=== PATIENT | male | born 1945 | race Caucasian/White ===

== ENCOUNTER → 2018-06-16 | Outpatient (CLI) | payer OTHER ==
[2018-06-16 14:29] LABS: Basophils # (auto) 0.1 uL; Basophils % (auto) 0.6 % (0.0-2.0); Eosinophils # (auto) 0.1 uL; Eosinophils % (auto) 1.1 % (0.0-7.0); Hemoglobin 14.8 g/dL (13.5-17.5); Lymphocytes # (auto) 1.6 uL; Lymphocytes % (auto) 18.1 % (10.0-50.0); Mean Corpuscular Hemoglobin 29.4 pg (28.0-32.0); Mean Corpuscular Hgb Conc. 33.7 g/dL (32.0-36.0); Mean Corpuscular Volume 87.2 fL (80.0-100.0); Monocytes # (auto) 0.5 uL; Monocytes % (auto) 5.9 % (0.0-12.0); Neutrophils # (auto) 6.6 uL; Neutrophils % (auto) 74.3 % (37.0-80.0); Platelet Count (auto) 263 10^3/uL (140-450); Red Blood Cells 5.04 10^6/uL (4.5-5.90)
[2018-06-16 14:34] LABS: Urine Bacteria NONE SEEN /hpf (None Seen); Urine Blood 1+ /uL (Negative); Urine Specific Gravity 1.015 (1.001-1.035); Urine WBC 80 /hpf (0 - 3)
[2018-06-16 14:48] LABS: Albumin 3.7 g/dL (3.4-5.0); Calcium 9.1 mg/dL (8.5-10.1); Potassium 4.4 mmol/L (3.5-5.1)
[2018-06-16 14:52] LABS: Bilirubin, Total 0.3 mg/dL (0.2-1.0)
[2018-06-16 14:56] LABS: Folate (Folic Acid) 10.85 ng/mL (5.38-24)
== END | disposition home or self-care (01) ==
LOC: LAB 14:01
PROVIDERS: ATTEND Nurse Practitioner
DX: E78.5 Hyperlipidemia, unspecified (principal)
CPT/HCPCS: 36415; 80053; 80061; 81001; 82043; 82306; 82607; 82746; 83036; 84443; 85025

== ENCOUNTER → 2018-08-13 | Outpatient (CLI) | payer OTHER ==
[2018-08-13 10:33] LABS: Basophils # (auto) 0 uL; Basophils % (auto) 0.5 % (0.0-2.0); Eosinophils # (auto) 0.1 uL; Eosinophils % (auto) 1.3 % (0.0-7.0); Hematocrit 42.8 % (41.0-53.0); Hemoglobin 14.3 g/dL (13.5-17.5); Lymphocytes # (auto) 1.7 uL; Lymphocytes % (auto) 23.9 % (10.0-50.0); Mean Corpuscular Hgb Conc. 33.4 g/dL (32.0-36.0); Mean Corpuscular Volume 86.9 fL (80.0-100.0); Monocytes # (auto) 0.5 uL; Monocytes % (auto) 6.9 % (0.0-12.0); Neutrophils # (auto) 4.7 uL; Neutrophils % (auto) 67.4 % (37.0-80.0); Platelet Count (auto) 245 10^3/uL (140-450); Red Blood Cells 4.93 10^6/uL (4.5-5.90); Red Cell Distribution Width 13.9 % (11.8-14.3); White Blood Cell 6.9 10^3/uL (4.4-10.8)
[2018-08-13 10:37] LABS: Urine Bacteria NONE SEEN /hpf (None Seen); Urine Blood 1+ /uL (Negative); Urine Specific Gravity 1.015 (1.001-1.035); Urine WBC 1 /hpf (0 - 3)
[2018-08-13 10:55] LABS: Albumin 3.7 g/dL (3.4-5.0); Calcium 8.7 mg/dL (8.5-10.1); Potassium 4.4 mmol/L (3.5-5.1)
[2018-08-13 10:59] LABS: BUN/Creatinine Ratio 15.2; Bilirubin, Total 0.4 mg/dL (0.2-1.0); Total Protein 7.6 g/dL (6.4-8.2)
== END | disposition home or self-care (01) ==
LOC: LAB 10:09
PROVIDERS: ATTEND Nurse Practitioner
DX: E78.5 Hyperlipidemia, unspecified (principal)
CPT/HCPCS: 36415; 80053; 81001; 85025

== ENCOUNTER → 2018-10-07 | Outpatient (CLI) | payer OTHER ==
[2018-10-07 09:01] LABS: Urine Bacteria NONE SEEN /hpf (None Seen); Urine Blood 1+ /uL (Negative); Urine Specific Gravity 1.014 (1.001-1.035); Urine WBC 2 /hpf (0 - 3)
[2018-10-07 09:03] LABS: Basophils # (auto) 0.1 uL; Basophils % (auto) 0.9 % (0.0-2.0); Eosinophils # (auto) 0.1 uL; Eosinophils % (auto) 1.5 % (0.0-7.0); Hematocrit 41.5 % (41.0-53.0); Hemoglobin 14.4 g/dL (13.5-17.5); Lymphocytes # (auto) 1.4 uL; Lymphocytes % (auto) 17.3 % (10.0-50.0); Mean Corpuscular Hemoglobin 30.2 pg (28.0-32.0); Mean Corpuscular Hgb Conc. 34.6 g/dL (32.0-36.0); Mean Corpuscular Volume 87.2 fL (80.0-100.0); Monocytes # (auto) 0.5 uL; Neutrophils # (auto) 5.7 uL; Neutrophils % (auto) 73.3 % (37.0-80.0); Nucleated Red Blood Cells % 0.1 %; Platelet Count (auto) 247 10^3/uL (140-450); Red Blood Cells 4.76 10^6/uL (4.5-5.90); Red Cell Distribution Width 14.4 % (11.8-14.3); White Blood Cell 7.8 10^3/uL (4.4-10.8)
[2018-10-07 09:28] LABS: Albumin 3.6 g/dL (3.4-5.0); Calcium 8.7 mg/dL (8.5-10.1); Potassium 4.8 mmol/L (3.5-5.1)
[2018-10-07 09:33] LABS: BUN/Creatinine Ratio 15.8; Bilirubin, Total 0.4 mg/dL (0.2-1.0); Total Protein 7.4 g/dL (6.4-8.2)
== END | disposition home or self-care (01) ==
LOC: LAB 08:36
PROVIDERS: ATTEND Nurse Practitioner
DX: N18.4 Chronic kidney disease, stage 4 (severe) (principal)
CPT/HCPCS: 36415; 80053; 81001; 82043; 83036; 85025

== ENCOUNTER → 2018-11-11 | Outpatient (CLI) | payer OTHER, MEDICARE ==
[2018-11-11 09:59] LABS: Basophils # (auto) 0 uL; Basophils % (auto) 0.6 % (0.0-2.0); Eosinophils # (auto) 0.1 uL; Eosinophils % (auto) 1.1 % (0.0-7.0); Hematocrit 41.9 % (41.0-53.0); Hemoglobin 14.3 g/dL (13.5-17.5); Lymphocytes # (auto) 1.4 uL; Lymphocytes % (auto) 19.9 % (10.0-50.0); Mean Corpuscular Hemoglobin 29.5 pg (28.0-32.0); Mean Corpuscular Hgb Conc. 34.1 g/dL (32.0-36.0); Mean Corpuscular Volume 86.6 fL (80.0-100.0); Monocytes # (auto) 0.5 uL; Monocytes % (auto) 6.6 % (0.0-12.0); Neutrophils # (auto) 5.1 uL; Neutrophils % (auto) 71.8 % (37.0-80.0); Nucleated Red Blood Cells % 0.1 %; Platelet Count (auto) 289 10^3/uL (140-450); Red Blood Cells 4.84 10^6/uL (4.5-5.90); Red Cell Distribution Width 14.1 % (11.8-14.3); White Blood Cell 7.1 10^3/uL (4.4-10.8)
[2018-11-11 10:15] LABS: Urine Bacteria NONE SEEN /hpf (None Seen); Urine Blood TRACE /uL (Negative); Urine Specific Gravity 1.011 (1.001-1.035); Urine WBC 3 /hpf (0 - 3)
[2018-11-11 10:35] LABS: Albumin 3.7 g/dL (3.4-5.0); Potassium 4.4 mmol/L (3.5-5.1)
[2018-11-11 10:41] LABS: BUN/Creatinine Ratio 14.4; Bilirubin, Total 0.3 mg/dL (0.2-1.0); Total Protein 7.8 g/dL (6.4-8.2)
[2018-11-11 12:04] LABS: Folate (Folic Acid) 16.96 ng/mL (5.38-24); Prostate Specific Antigen 0.6 ng/mL (0.0-4.0)
== END | disposition home or self-care (01) ==
LOC: LAB 09:39
PROVIDERS: ATTEND Nurse Practitioner
DX: E78.5 Hyperlipidemia, unspecified (principal); E11.9 Type 2 diabetes mellitus without complications
CPT/HCPCS: 36415; 80053; 80061; 81001; 82043; 82306; 82746; 83036; 84153; 84443; 85025

== ENCOUNTER → 2018-11-24 | Outpatient (CLI) | payer OTHER, MEDICARE | END | disposition home or self-care (01) | LOC: LAB 09:10 | PROVIDERS: ATTEND Nurse Practitioner | DX: E11.22 Type 2 diabetes mellitus with diabetic chronic kidney disease (principal); N18.4 Chronic kidney disease, stage 4 (severe); E78.5 Hyperlipidemia, unspecified | CPT/HCPCS: 82270 ==

== ENCOUNTER → 2018-12-16 | Outpatient (CLI) | payer OTHER, MEDICARE ==
[2018-12-16 15:46] LABS: Urine Bacteria NONE SEEN /hpf (None Seen); Urine Blood Negative /uL (Negative); Urine Specific Gravity 1.018 (1.001-1.035); Urine WBC 8 /hpf (0 - 3)
== END | disposition home or self-care (01) ==
LOC: LAB 14:55
PROVIDERS: ATTEND Urology
DX: N40.0 Benign prostatic hyperplasia without lower urinary tract symptoms (principal)
CPT/HCPCS: 81001; 87086

== ENCOUNTER → 2019-06-13 | Outpatient (CLI) | payer MEDICARE, OTHER ==
[2019-06-13 08:55] LABS: Basophils # (auto) 0 uL; Basophils % (auto) 0.4 % (0.0-2.0); Eosinophils # (auto) 0.1 uL; Eosinophils % (auto) 1.3 % (0.0-7.0); Hematocrit 40.4 % (41.0-53.0); Lymphocytes # (auto) 1.6 uL; Lymphocytes % (auto) 17.7 % (10.0-50.0); Mean Corpuscular Hemoglobin 30.3 pg (28.0-32.0); Mean Corpuscular Hgb Conc. 34.5 g/dL (32.0-36.0); Mean Corpuscular Volume 87.7 fL (80.0-100.0); Monocytes # (auto) 0.6 uL; Neutrophils # (auto) 6.6 uL; Neutrophils % (auto) 73.6 % (37.0-80.0); Nucleated Red Blood Cells % 0.1 %; Platelet Count (auto) 242 10^3/uL (140-450); Red Blood Cells 4.61 10^6/uL (4.5-5.90)
[2019-06-13 08:59] LABS: Urine Bacteria NONE SEEN /hpf (None Seen); Urine Blood TRACE /uL (Negative); Urine Hyaline Cast FEW /lpf (0 - 2); Urine Specific Gravity 1.016 (1.001-1.035); Urine WBC 3 /hpf (0 - 3)
[2019-06-13 09:41] LABS: Albumin 3.8 g/dL (3.4-5.0); BUN/Creatinine Ratio 16.1; Bilirubin, Total 0.4 mg/dL (0.2-1.0); Calcium 8.9 mg/dL (8.5-10.1); Potassium 4.3 mmol/L (3.5-5.1); Total Protein 7.7 g/dL (6.4-8.2)
== END | disposition home or self-care (01) ==
LOC: LAB 08:27
PROVIDERS: ATTEND Nurse Practitioner
DX: E78.5 Hyperlipidemia, unspecified (principal); E11.9 Type 2 diabetes mellitus without complications
CPT/HCPCS: 36415; 80053; 80061; 81001; 82043; 83036; 84443; 85025

== ENCOUNTER → 2019-09-22 | Outpatient (CLI) | payer OTHER ==
[2019-09-22 09:09] LABS: Basophils # (auto) 0 uL; Basophils % (auto) 0.4 % (0.0-2.0); Eosinophils # (auto) 0.1 uL; Eosinophils % (auto) 1.8 % (0.0-7.0); Hematocrit 40.3 % (41.0-53.0); Hemoglobin 13.9 g/dL (13.5-17.5); Lymphocytes # (auto) 1.6 uL; Lymphocytes % (auto) 20.3 % (10.0-50.0); Mean Corpuscular Hemoglobin 30.1 pg (28.0-32.0); Mean Corpuscular Hgb Conc. 34.5 g/dL (32.0-36.0); Mean Corpuscular Volume 87.3 fL (80.0-100.0); Monocytes # (auto) 0.6 uL; Monocytes % (auto) 7.9 % (0.0-12.0); Neutrophils # (auto) 5.3 uL; Neutrophils % (auto) 69.6 % (37.0-80.0); Platelet Count (auto) 264 10^3/uL (140-450); Red Blood Cells 4.62 10^6/uL (4.5-5.90); Red Cell Distribution Width 14.1 % (11.8-14.3); White Blood Cell 7.7 10^3/uL (4.4-10.8)
[2019-09-22 09:24] LABS: Urine Bacteria NONE SEEN /hpf (None Seen); Urine Blood TRACE /uL (Negative); Urine Mucus FEW (None Seen); Urine Specific Gravity 1.015 (1.001-1.035); Urine WBC 1 /hpf (0 - 3)
[2019-09-22 09:43] LABS: Potassium 4.1 mmol/L (3.5-5.1)
[2019-09-22 09:53] LABS: Albumin 3.8 g/dL (3.4-5.0); BUN/Creatinine Ratio 14.8; Bilirubin, Total 0.4 mg/dL (0.2-1.0); Total Protein 7.8 g/dL (6.4-8.2)
== END | disposition home or self-care (01) ==
LOC: LAB 08:29
PROVIDERS: ATTEND Nurse Practitioner
DX: R97.20 Elevated prostate specific antigen [PSA] (principal)
CPT/HCPCS: 36415; 80053; 80061; 81001; 82043; 83036; 84154; 84443; 85025

== ENCOUNTER → 2020-07-12 | Outpatient (CLI) | payer OTHER ==
[2020-07-12 09:18] LABS: Basophils # (auto) 0.1 10 ^3/uL (0-0.2); Basophils % (auto) 0.5 % (0.0-2.0); Eosinophils # (auto) 0.3 10 ^3/uL (0-0.8); Eosinophils % (auto) 2.5 % (0.0-7.0); Hematocrit 38.9 % (41.0-53.0); Lymphocytes # (auto) 1.9 10 ^3/uL (0.4-5.4); Lymphocytes % (auto) 18.7 % (10.0-50.0); Mean Corpuscular Hgb Conc. 33.4 g/dL (32.0-36.0); Mean Corpuscular Volume 89.7 fL (80.0-100.0); Monocytes # (auto) 0.6 10 ^3/uL (0-1.3); Monocytes % (auto) 6.2 % (0.0-12.0); Neutrophils # (auto) 7.5 10 ^3/uL (1.6-8.6); Neutrophils % (auto) 72.1 % (37.0-80.0); Platelet Count (auto) 271 10^3/uL (140-450); Red Blood Cells 4.34 10^6/uL (4.5-5.90); Red Cell Distribution Width 13.8 % (11.8-14.3); White Blood Cell 10.4 10^3/uL (4.4-10.8)
[2020-07-12 09:21] LABS: Urine Bacteria FEW /hpf (None Seen); Urine Blood Negative /uL (Negative); Urine Specific Gravity 1.013 (1.001-1.035); Urine WBC 3 /hpf (0 - 3)
[2020-07-12 09:45] LABS: Albumin 3.9 g/dL (3.4-5.0); Calcium 9.5 mg/dL (8.5-10.1); Potassium 4.3 mmol/L (3.5-5.1)
[2020-07-12 09:50] LABS: BUN/Creatinine Ratio 20.3; Bilirubin, Total 0.3 mg/dL (0.2-1.0); Total Protein 7.7 g/dL (6.4-8.2)
== END | disposition home or self-care (01) ==
LOC: LAB 09:01
PROVIDERS: ATTEND Nurse Practitioner
DX: E11.9 Type 2 diabetes mellitus without complications (principal); E78.5 Hyperlipidemia, unspecified
CPT/HCPCS: 36415; 80053; 80061; 81001; 82043; 82270; 83036; 84443; 85025

== ENCOUNTER 2020-07-23 10:18 | Inpatient (IN) | payer OTHER ==
[~2020-07-23] VITALS: Ht 177.8 cm; Wt 89.1 kg
[2020-07-23 11:28] LABS: Basophils # (auto) 0 10 ^3/uL (0-0.2); Basophils % (auto) 0.1 % (0.0-2.0); Eosinophils # (auto) 0.1 10 ^3/uL (0-0.8); Eosinophils % (auto) 0.8 % (0.0-7.0); Hematocrit 37.8 % (41.0-53.0); Hemoglobin 12.9 g/dL (13.5-17.5); Lymphocytes # (auto) 1.7 10 ^3/uL (0.4-5.4); Lymphocytes % (auto) 14.9 % (10.0-50.0); Mean Corpuscular Hemoglobin 30.1 pg (28.0-32.0); Mean Corpuscular Volume 88.4 fL (80.0-100.0); Monocytes # (auto) 0.7 10 ^3/uL (0-1.3); Monocytes % (auto) 6.1 % (0.0-12.0); Neutrophils # (auto) 8.9 10 ^3/uL (1.6-8.6); Neutrophils % (auto) 78.1 % (37.0-80.0); Nucleated Red Blood Cells % 0.1 %; Platelet Count (auto) 300 10^3/uL (140-450); Red Blood Cells 4.28 10^6/uL (4.5-5.90); Red Cell Distribution Width 13.8 % (11.8-14.3); White Blood Cell 11.4 10^3/uL (4.4-10.8)
[2020-07-23 12:12] LABS: Albumin 3.9 g/dL (3.4-5.0); Anion Gap 11 (5-15); Calcium 9.2 mg/dL (8.5-10.1); Carbon Dioxide 19 mmol/L (21-32); Chloride 105 mmol/L (98-107); Glucose 198 mg/dL (74-106); Magnesium 3.1 mg/dL (1.6-2.6); Potassium 4.1 mmol/L (3.5-5.1); Sodium 135 mmol/L (136-145)
[2020-07-23 12:19] LABS: Alanine Aminotransferase 25 U/L (16-61); Alkaline Phosphatase 101 U/L (45-117); Aspartate Aminotransferase 13 U/L (15-37); BUN/Creatinine Ratio 21.9; Bilirubin, Total 0.4 mg/dL (0.2-1.0); GFR African American 19 mL/min; GFR Non-African American 15 mL/min
[2020-07-23 12:26] LABS: Blood Urea Nitrogen 89 mg/dL (7-18)
[2020-07-23] MEDS ORDERED: MORPHINE SULF INJ 2 MG/ML SYRINGE 1ML IV PRN ×3 (14:00→16:30)
[2020-07-23] MEDS ORDERED: LACTATED RINGER'S 1,000 ML IV ONE (14:00)
[2020-07-23] MEDS ORDERED: NITROGLYCERIN 0.4 MG SL TAB SL PRN ×2 (14:00→16:30)
[2020-07-23] MEDS ORDERED: GLIP10TA9 PO (15:02)
[2020-07-23] MEDS ORDERED: AMLO10TA13 PO (15:02)
[2020-07-23] MEDS ORDERED: FINA5TAB4 PO (15:02)
[2020-07-23] MEDS ORDERED: ATOR10TA52 PO (15:02)
[2020-07-23] MEDS ORDERED: TAMS0.4C36 PO (15:02)
[2020-07-23] MEDS ORDERED: ENOXAPARIN SOD 40 MG/0.4 ML SYRINGE SC ONE (15:30)
[2020-07-23 15:55] LABS: Cholesterol 102 mg/dL (< 200)
[2020-07-23 15:59] LABS: HDL Cholesterol 30 mg/dL (40-59); LDL Cholesterol 54 mg/dL (< 100); Triglycerides 197 mg/dL (< 150)
[2020-07-23] MEDS ORDERED: ENOXAPARIN SOD 30 MG/0.3 ML SYRINGE SC ONE (16:00)
[2020-07-23] MEDS ORDERED: PNEUMOCOCCAL VACC POLYS 25 MCG/0.5 ML VIAL IM ONE (16:30)
[2020-07-23] MEDS ORDERED: DOCUSATE SOD 100 MG CAP PO PRN (16:30)
[2020-07-23] MEDS ORDERED: ALUM & MAG HYDROX-SIMETH LIQ(MAALOX) 30 ML PO PRN (16:30)
[2020-07-23] MEDS ORDERED: TAMSULOSIN HYDROCHLORIDE 0.4 MG CAP PO ONE (16:30)
[2020-07-23] MEDS ORDERED: ACETAMINOPHEN 325 MG TAB PO PRN (16:30)
[2020-07-23] MEDS ORDERED: hydrALAZINE HCL 20 MG/ML VL IV PRN (16:30)
[2020-07-23] MEDS ORDERED: DEXTROSE (50%) 50ML SYRG IV PRN (16:30)
[2020-07-23] MEDS ORDERED: INFLUENZA QUAD 2020-2021 0.5 ML SYRG IM ONE (16:30)
[2020-07-23] MEDS ORDERED: HYDROcodone-ACET 5/325MG TAB PO PRN (16:30)
[2020-07-23] MEDS ORDERED: LORazepam 0.5 MG TAB PO PRN (16:30)
[2020-07-23] MEDS ORDERED: cefTRIAXone 1GM/50ML D5W 50 ML IV ONE (16:30)
[2020-07-23] MEDS ORDERED: ONDANSETRON HCL 4 MG/2 ML VIAL IV PRN (16:30)
[2020-07-23] MEDS ORDERED: ENOXAPARIN SOD 40 MG/0.4 ML SYRINGE SC SCH (22:00)
[2020-07-23] MEDS ORDERED: LATANOPROST 0.005 % OPTH(EYE) SOL 2.5ML EACHEYE SCH (22:00)
[2020-07-24 02:53] LABS: Cholesterol 111 mg/dL (< 200)
[2020-07-24 02:58] LABS: HDL Cholesterol 32 mg/dL (40-59); LDL Cholesterol 59 mg/dL (< 100); Triglycerides 197 mg/dL (< 150)
[2020-07-24] MEDS: SODIUM CHLORIDE 0.9% 1,000 ML IV SCH ×3 (05:20→17:04)
[2020-07-24] MEDS: InsuLIN REG 1unit/0.01ml Soln (100units/ml) SC SCH ×5 (05:22→22:46)
[2020-07-24] MEDS: ACCU-CHEK COMFORT CURVE STRIP VI SCH ×5 (05:23→22:43)
[2020-07-24 10:17] VITALS: BP 153/81
[2020-07-24] MEDS: ASPirin 81 mg TAB PO SCH (10:19)
[2020-07-24] MEDS: cefTRIAXone 1GM/50ML D5W 50 ML IV SCH (10:19)
[2020-07-24] MEDS: FINASTERIDE 5 MG TAB PO SCH (10:19)
[2020-07-24] MEDS: ENOXAPARIN SOD 30 MG/0.3 ML SYRINGE SC SCH (10:20)
[2020-07-24 10:32] VITALS: BP 153/81
[2020-07-24 13:00] VITALS: BP 175/90
[2020-07-24 17:00] VITALS: BP 149/74
[2020-07-24] MEDS ORDERED: TAMSULOSIN HYDROCHLORIDE 0.4 MG CAP PO SCH (18:00)
[2020-07-24 20:05] LABS: Urine Bacteria FEW /hpf (None Seen); Urine Blood TRACE /uL (Negative); Urine Specific Gravity 1.012 (1.001-1.035); Urine WBC 1 /hpf (0 - 3)
[2020-07-24 20:25] LABS: Alcohol, Urine < 3.0 mg/dL (0-10); Amphetamine Screen, Urine NEGATIVE (NEGATIVE); Barbiturate Scree,Urine NEGATIVE (NEGATIVE); Benzodiazephine Screen, Urine NEGATIVE (NEGATIVE); Cannabinoid Screen, Urine NEGATIVE (NEGATIVE); Cocaine Screen, Urine NEGATIVE (NEGATIVE); Opiate Scree,Urine NEGATIVE (NEGATIVE); Phencyclidine Screen, Urine NEGATIVE (NEGATIVE)
[2020-07-24] MEDS ORDERED: ATORVASTATIN 20 MG TAB PO SCH (22:00)
[2020-07-24 22:30] VITALS: BP_SYST 139; BP_SYST 146; BP_SYST 155; BP_DIAS 67; BP_DIAS 74; BP_DIAS 76
[2020-07-24] MEDS: METOPROLOL TARTRATE 25 MG TAB PO SCH (22:43)
[2020-07-25] MEDS: SODIUM CHLORIDE 0.9% 1,000 ML IV SCH (00:35)
[2020-07-25 05:00] VITALS: BP_SYST 123; BP_SYST 130; BP_SYST 142; BP_DIAS 67; BP_DIAS 69
[2020-07-25] MEDS: ACCU-CHEK COMFORT CURVE STRIP VI SCH ×3 (06:37→17:00)
[2020-07-25] MEDS: InsuLIN REG 1unit/0.01ml Soln (100units/ml) SC SCH ×3 (06:37→17:00)
[2020-07-25 07:07] LABS: BUN/Creatinine Ratio 21.5; Calcium 8.5 mg/dL (8.5-10.1); Magnesium 3.1 mg/dL (1.6-2.6); Phosphorus 4.7 mg/dL (2.5-4.90); Potassium 3.7 mmol/L (3.5-5.1)
[2020-07-25 09:00] VITALS: BP 148/72
[2020-07-25] MEDS: cefTRIAXone 1GM/50ML D5W 50 ML IV SCH (09:00)
[2020-07-25] MEDS: ASPirin 81 mg TAB PO SCH (09:53)
[2020-07-25] MEDS: METOPROLOL TARTRATE 25 MG TAB PO SCH (09:54)
[2020-07-25] MEDS: FINASTERIDE 5 MG TAB PO SCH (09:55)
[2020-07-25] MEDS: ENOXAPARIN SOD 30 MG/0.3 ML SYRINGE SC SCH (10:00)
[2020-07-25] MEDS ORDERED: amLODIPine BESYLATE 5 MG TAB PO SCH (10:00)
[2020-07-25 12:30] VITALS: BP 135/75
[2020-07-25] MEDS ORDERED: SODIUM BICARBONATE 650 MG TAB PO SCH (14:00)
[2020-07-25 17:00] VITALS: BP 132/68
== END 2020-07-25 17:33 | disposition home or self-care (01) | DRG 309 ==
LOC: ER 10:18 → TELE 10:19 → TELE-WESTW 07-24 09:50
PROVIDERS: ADMIT Hospitalist; ATTEND Internal Medicine
DX: I49.9 Cardiac arrhythmia, unspecified (principal); E87.1 Hypo-osmolality and hyponatremia; N39.0 Urinary tract infection, site not specified; N18.4 Chronic kidney disease, stage 4 (severe); N13.8 Other obstructive and reflux uropathy; N17.9 Acute kidney failure, unspecified; E44.1 Mild protein-calorie malnutrition; E87.2 Acidosis; E86.0 Dehydration; E83.42 Hypomagnesemia; E78.5 Hyperlipidemia, unspecified; E11.42 Type 2 diabetes mellitus with diabetic polyneuropathy; H40.9 Unspecified glaucoma; N40.1 Benign prostatic hyperplasia with lower urinary tract symptoms; I70.0 Atherosclerosis of aorta; F17.290 Nicotine dependence, other tobacco product, uncomplicated; I25.2 Old myocardial infarction; I65.23 Occlusion and stenosis of bilateral carotid arteries; I67.2 Cerebral atherosclerosis; I70.8 Atherosclerosis of other arteries; K44.9 Diaphragmatic hernia without obstruction or gangrene; K57.30 Diverticulosis of large intestine without perforation or abscess without bleeding; M19.90 Unspecified osteoarthritis, unspecified site; N28.1 Cyst of kidney, acquired; N32.0 Bladder-neck obstruction; Z79.82 Long term (current) use of aspirin; Z79.84 Long term (current) use of oral hypoglycemic drugs; Z79.899 Other long term (current) drug therapy; Z82.0 Family history of epilepsy and other diseases of the nervous system; Z86.73 Personal history of transient ischemic attack (TIA), and cerebral infarction without residual deficits; Z89.429 Acquired absence of other toe(s), unspecified side; I12.9 Hypertensive chronic kidney disease with stage 1 through stage 4 chronic kidney disease, or unspecified chronic kidney disease; E11.22 Type 2 diabetes mellitus with diabetic chronic kidney disease
CPT/HCPCS: 36415; 70450; 70545; 70551; 71046; 74176; 76775; 78582; 80048; 80053; 80061; 80307; 81001; 82962; 83735; 83880; 84100; 84484; 85025; 85379; 87040; 87086; 93005; 93306; 93886; G0378; J0696; J1815

== ENCOUNTER 2020-08-29 17:11 | Inpatient (IN) | payer OTHER ==
[~2020-08-29] VITALS: Ht 177.8 cm; Wt 88.8 kg
[~2020-08-29 17:11] MED LIST: AMLO10TA13 PO; ATOR10TA52 PO; FINA5TAB4 PO; GLIP10TA9 PO; TAMS0.4C36 PO
[2020-08-29] MEDS ORDERED: INSU70IN3 SC (18:32)
[2020-08-29] MEDS ORDERED: NITROGLYCERIN 0.4 MG SL TAB SL PRN ×2 (19:00→20:00)
[2020-08-29] MEDS ORDERED: ACETAMINOPHEN 325 MG TAB PO PRN ×2 (19:00→20:00)
[2020-08-29] MEDS ORDERED: MORPHINE SULF INJ 2 MG/ML SYRINGE 1ML IV PRN ×3 (19:00→20:00)
[2020-08-29] MEDS ORDERED: DEXTROSE (50%) 50ML SYRG IV PRN (19:15)
[2020-08-29 19:30] LABS: Basophils # (auto) 0 10 ^3/uL (0-0.2); Basophils % (auto) 0.2 % (0.0-2.0); Eosinophils # (auto) 0.1 10 ^3/uL (0-0.8); Eosinophils % (auto) 0.6 % (0.0-7.0); Hematocrit 36.7 % (41.0-53.0); Hemoglobin 12.7 g/dL (13.5-17.5); Lymphocytes # (auto) 0.9 10 ^3/uL (0.4-5.4); Lymphocytes % (auto) 8.6 % (10.0-50.0); Mean Corpuscular Hemoglobin 30.6 pg (28.0-32.0); Mean Corpuscular Hgb Conc. 34.5 g/dL (32.0-36.0); Mean Corpuscular Volume 88.8 fL (80.0-100.0); Monocytes # (auto) 0.7 10 ^3/uL (0-1.3); Monocytes % (auto) 6.5 % (0.0-12.0); Neutrophils % (auto) 84.1 % (37.0-80.0); Platelet Count (auto) 217 10^3/uL (140-450); Red Blood Cells 4.13 10^6/uL (4.5-5.90); Red Cell Distribution Width 13.7 % (11.8-14.3); White Blood Cell 10.7 10^3/uL (4.4-10.8)
[2020-08-29 19:32] LABS: Albumin 3.8 g/dL (3.4-5.0); Calcium 9.7 mg/dL (8.5-10.1); Potassium 4.3 mmol/L (3.5-5.1)
[2020-08-29 19:35] LABS: Bilirubin, Total 0.3 mg/dL (0.2-1.0); Total Protein 7.7 g/dL (6.4-8.2)
[2020-08-29 19:41] LABS: Magnesium 3.6 mg/dL (1.6-2.6); Phosphorus 4.8 mg/dL (2.5-4.90)
[2020-08-29 20:00] VITALS: BP 141/60
[2020-08-29] MEDS ORDERED: HYDROcodone-ACET 5/325MG TAB PO PRN (20:00)
[2020-08-29] MEDS ORDERED: ALUM & MAG HYDROX-SIMETH LIQ(MAALOX) 30 ML PO PRN (20:00)
[2020-08-29] MEDS ORDERED: DOCUSATE SOD 100 MG CAP PO PRN (20:00)
[2020-08-29 20:10] LABS: INR 1.01 (0.9-1.15)
[2020-08-29] MEDS ORDERED: ENOXAPARIN SOD 30 MG/0.3 ML SYRINGE SC ONE (21:00)
[2020-08-29] MEDS ORDERED: ASPI-543 PO (21:03)
[2020-08-29] MEDS ORDERED: MULT-228 PO (21:04)
[2020-08-29] MEDS: SODIUM CHLORIDE 0.9% 1,000 ML IV SCH (21:38)
[2020-08-29] MEDS: ATROPINE SULF 1 MG/10ml SYR IV SCH ×2 (21:39→21:54)
[2020-08-29] MEDS: SODIUM CHLOR 0.9% PF (SALINE LOCK) 10ML VIAL/SYR IV SCH (21:40)
[2020-08-29] MEDS: ATORVASTATIN 20 MG TAB PO SCH (22:00)
[2020-08-30] VITALS (52 sets, daily range): BP systolic 87–170; BP diastolic 32–96
[2020-08-30 05:02] LABS: Basophils # (auto) 0 10 ^3/uL (0-0.2); Basophils % (auto) 0.3 % (0.0-2.0); Eosinophils # (auto) 0.1 10 ^3/uL (0-0.8); Eosinophils % (auto) 0.8 % (0.0-7.0); Hematocrit 35.2 % (41.0-53.0); Hemoglobin 12.1 g/dL (13.5-17.5); Lymphocytes # (auto) 1.6 10 ^3/uL (0.4-5.4); Lymphocytes % (auto) 15.5 % (10.0-50.0); Mean Corpuscular Hemoglobin 30.9 pg (28.0-32.0); Mean Corpuscular Hgb Conc. 34.3 g/dL (32.0-36.0); Monocytes # (auto) 0.7 10 ^3/uL (0-1.3); Neutrophils # (auto) 7.7 10 ^3/uL (1.6-8.6); Neutrophils % (auto) 76.4 % (37.0-80.0); Platelet Count (auto) 207 10^3/uL (140-450); Red Cell Distribution Width 13.5 % (11.8-14.3)
[2020-08-30 05:25] LABS: Albumin 3.5 g/dL (3.4-5.0); BUN/Creatinine Ratio 19.7; Bilirubin, Total 0.4 mg/dL (0.2-1.0); Calcium 9.2 mg/dL (8.5-10.1)
[2020-08-30] MEDS: ACCU-CHEK COMFORT CURVE STRIP VI SCH ×5 (06:00→23:13)
[2020-08-30] MEDS: SODIUM CHLOR 0.9% PF (SALINE LOCK) 10ML VIAL/SYR IV SCH ×3 (06:52→20:15)
[2020-08-30] MEDS: InsuLIN REG 1unit/0.01ml Soln (100units/ml) SC SCH ×5 (07:14→23:13)
[2020-08-30] MEDS: ASPirin 81 mg TAB PO SCH (10:00)
[2020-08-30 10:34] LABS: INR 1.03 (0.9-1.15); Partial Thromboplastin Time 24.7 sec (23.0-31.2)
[2020-08-30 12:44] LABS: Hepatitis B Surface Antigen Negative (Negative); Hepatitis C Antibody Negative (Negative)
[2020-08-30] MEDS: SODIUM CHLORIDE 0.9% 1,000 ML IV SCH (14:00)
[2020-08-30] MEDS: DOPamine 1600MCG/ML D5W 250 ML IV SCH ×2 (14:00→23:19)
[2020-08-30] MEDS: ceFAZolin 1GM/50ML 50 ML IV SCH (20:15)
[2020-08-30] MEDS: ONDANSETRON HCL 4 MG/2 ML VIAL IV PRN (20:16)
[2020-08-30] MEDS ORDERED: ENOXAPARIN SOD 30 MG/0.3 ML SYRINGE SC SCH (22:00)
[2020-08-30] MEDS: ATORVASTATIN 20 MG TAB PO SCH (22:00)
[2020-08-31] VITALS (33 sets, daily range): BP systolic 122–172; BP diastolic 45–84
[2020-08-31] MEDS: ONDANSETRON HCL 4 MG/2 ML VIAL IV PRN (01:30)
[2020-08-31] MEDS: hydrALAZINE HCL 20 MG/ML VL IV PRN ×2 (02:01→06:27)
[2020-08-31] MEDS: DOPamine 1600MCG/ML D5W 250 ML IV SCH (03:17)
[2020-08-31] MEDS: SODIUM CHLOR 0.9% PF (SALINE LOCK) 10ML VIAL/SYR IV SCH ×3 (06:27→21:19)
[2020-08-31] MEDS: ACCU-CHEK COMFORT CURVE STRIP VI SCH ×3 (06:27→17:59)
[2020-08-31] MEDS: ceFAZolin 1GM/50ML 50 ML IV SCH ×3 (06:27→21:20)
[2020-08-31] MEDS: InsuLIN REG 1unit/0.01ml Soln (100units/ml) SC SCH ×3 (06:28→18:01)
[2020-08-31] MEDS ORDERED: fentaNYL CITRATE 100 MCG/2 ML VL ONE (08:26)
[2020-08-31] MEDS ORDERED: MIDAZOLAM HCL 1MG/1ML-2 ML VIAL ONE (08:26)
[2020-08-31] MEDS ORDERED: VANCOMYCIN HCL 1000 MG VL ONE (08:27)
[2020-08-31] MEDS ORDERED: LIDOCAINE 2%HCL (LOCAL ANESTH.) INJ 20ML MDV ONE (08:27)
[2020-08-31] MEDS ORDERED: VANCOMYCIN 1GM/250ML 250 ML IV ONE (08:27)
[2020-08-31] MEDS: ASPirin 81 mg TAB PO SCH (10:00)
[2020-08-31] MEDS ORDERED: ATROPINE SULF 1 MG/10ml SYR IM ONE (16:15)
[2020-08-31] MEDS: ATORVASTATIN 20 MG TAB PO SCH (21:19)
[2020-09-01] VITALS: BP 130/66
[2020-09-01] MEDS: InsuLIN REG 1unit/0.01ml Soln (100units/ml) SC SCH ×4 (00:57→18:18)
[2020-09-01] MEDS: ACCU-CHEK COMFORT CURVE STRIP VI SCH ×4 (00:57→18:17)
[2020-09-01] MEDS: LORazepam 0.5 MG TAB PO PRN (03:30)
[2020-09-01 05:00] VITALS: BP 138/70
[2020-09-01 05:44] LABS: Basophils # (auto) 0 10 ^3/uL (0-0.2); Basophils % (auto) 0.1 % (0.0-2.0); Eosinophils # (auto) 0 10 ^3/uL (0-0.8); Hematocrit 30.2 % (41.0-53.0); Hemoglobin 10.4 g/dL (13.5-17.5); Lymphocytes # (auto) 0.6 10 ^3/uL (0.4-5.4); Lymphocytes % (auto) 3.1 % (10.0-50.0); Mean Corpuscular Hemoglobin 31.5 pg (28.0-32.0); Mean Corpuscular Hgb Conc. 34.5 g/dL (32.0-36.0); Mean Corpuscular Volume 91.2 fL (80.0-100.0); Monocytes # (auto) 1.2 10 ^3/uL (0-1.3); Monocytes % (auto) 6.5 % (0.0-12.0); Neutrophils # (auto) 16.7 10 ^3/uL (1.6-8.6); Neutrophils % (auto) 90.3 % (37.0-80.0); Platelet Count (auto) 178 10^3/uL (140-450); Red Blood Cells 3.31 10^6/uL (4.5-5.90); White Blood Cell 18.5 10^3/uL (4.4-10.8)
[2020-09-01 06:10] LABS: Calcium 8.6 mg/dL (8.5-10.1); Potassium 5.4 mmol/L (3.5-5.1)
[2020-09-01 06:15] LABS: BUN/Creatinine Ratio 21.5; Bilirubin, Total 0.6 mg/dL (0.2-1.0); Total Protein 6.8 g/dL (6.4-8.2)
[2020-09-01] MEDS: SODIUM CHLOR 0.9% PF (SALINE LOCK) 10ML VIAL/SYR IV SCH ×3 (06:28→21:43)
[2020-09-01] MEDS ORDERED: SODIUM ZIRCONIUM CYCL 10 GM PAK PO ONE (07:00)
[2020-09-01] MEDS ORDERED: VANCOMYCIN PER PHARMACY 0 MG IV SCH (07:00)
[2020-09-01 08:00] VITALS: BP 142/74
[2020-09-01] MEDS ORDERED: BUMETANIDE 2.5mg/10ml (0.25 mg/ml) INJ IV ONE (08:45)
[2020-09-01] MEDS: ASPirin 81 mg TAB PO SCH (10:12)
[2020-09-01] MEDS: ceFAZolin 1GM/50ML 50 ML IV SCH (10:15)
[2020-09-01] MEDS ORDERED: VANCOMYCIN 1GM/250ML 250 ML IV ONE (11:00)
[2020-09-01] MEDS ORDERED: VANCOMYCIN 750mg/250ml 250 ML IV ONE (11:00)
[2020-09-01] MEDS ORDERED: PIPERACILLIN-TAZO 4.5GM 100 ML IV ONE (13:30)
[2020-09-01] MEDS ORDERED: DOXYCYCLINE 100 MG TAB/CAP PO ONE (13:30)
[2020-09-01] MEDS ORDERED: ENOXAPARIN SOD 40 MG/0.4 ML SYRINGE SC ONE (13:45)
[2020-09-01 16:25] VITALS: BP 118/67
[2020-09-01] MEDS: BUMETANIDE 2.5mg/10ml (0.25 mg/ml) INJ IV SCH (18:16)
[2020-09-01] MEDS: ATORVASTATIN 20 MG TAB PO SCH (21:27)
[2020-09-01] MEDS: DOXYCYCLINE 100 MG TAB/CAP PO SCH (21:28)
[2020-09-01] MEDS: PIPERACILLIN-TAZOB 2.25GM 50 ML IV SCH (21:28)
[2020-09-01 21:46] VITALS: BP 120/63
[2020-09-02] MEDS: PIPERACILLIN-TAZOB 2.25GM 50 ML IV SCH ×4 (03:00→21:01)
[2020-09-02 05:05] VITALS: BP 108/65
[2020-09-02] MEDS: BUMETANIDE 2.5mg/10ml (0.25 mg/ml) INJ IV SCH (05:57)
[2020-09-02] MEDS: InsuLIN REG 1unit/0.01ml Soln (100units/ml) SC SCH ×4 (06:00→17:44)
[2020-09-02] MEDS: SODIUM CHLOR 0.9% PF (SALINE LOCK) 10ML VIAL/SYR IV SCH ×3 (06:00→21:37)
[2020-09-02] MEDS: ACCU-CHEK COMFORT CURVE STRIP VI SCH ×4 (06:04→17:40)
[2020-09-02] MEDS: LORazepam 0.5 MG TAB PO PRN (06:04)
[2020-09-02 08:00] VITALS: BP 107/59
[2020-09-02] MEDS: DOXYCYCLINE 100 MG TAB/CAP PO SCH ×3 (08:57→22:00)
[2020-09-02] MEDS: ASPirin 81 mg TAB PO SCH (08:57)
[2020-09-02] MEDS ORDERED: ENOXAPARIN SOD 40 MG/0.4 ML SYRINGE SC SCH (10:00)
[2020-09-02 12:44] LABS: Basophils # (auto) 0 10 ^3/uL (0-0.2); Basophils % (auto) 0.2 % (0.0-2.0); Eosinophils # (auto) 0 10 ^3/uL (0-0.8); Hematocrit 28.4 % (41.0-53.0); Hemoglobin 9.5 g/dL (13.5-17.5); Lymphocytes # (auto) 0.6 10 ^3/uL (0.4-5.4); Lymphocytes % (auto) 3.9 % (10.0-50.0); Mean Corpuscular Hemoglobin 30.4 pg (28.0-32.0); Mean Corpuscular Hgb Conc. 33.4 g/dL (32.0-36.0); Mean Corpuscular Volume 90.8 fL (80.0-100.0); Monocytes # (auto) 1.1 10 ^3/uL (0-1.3); Monocytes % (auto) 6.6 % (0.0-12.0); Neutrophils # (auto) 14.2 10 ^3/uL (1.6-8.6); Neutrophils % (auto) 89.3 % (37.0-80.0); Platelet Count (auto) 181 10^3/uL (140-450); Red Blood Cells 3.12 10^6/uL (4.5-5.90); White Blood Cell 15.9 10^3/uL (4.4-10.8)
[2020-09-02 15:41] VITALS: BP 120/69
[2020-09-02 16:00] VITALS: BP 116/68
[2020-09-02 16:05] LABS: BUN/Creatinine Ratio 22.6; Calcium 8.1 mg/dL (8.5-10.1); Potassium 4.3 mmol/L (3.5-5.1)
[2020-09-02] MEDS: ATORVASTATIN 20 MG TAB PO SCH (21:37)
[2020-09-02] MEDS: SODIUM BICARBONATE 650 MG TAB PO SCH (21:37)
[2020-09-02 22:00] VITALS: BP 120/66
[2020-09-03] MEDS: ACCU-CHEK COMFORT CURVE STRIP VI SCH ×4 (00:09→17:21)
[2020-09-03] MEDS: InsuLIN REG 1unit/0.01ml Soln (100units/ml) SC SCH ×4 (00:14→17:37)
[2020-09-03] MEDS: PIPERACILLIN-TAZOB 2.25GM 50 ML IV SCH ×4 (03:28→20:47)
[2020-09-03 05:00] VITALS: BP 110/64
[2020-09-03] MEDS: SODIUM CHLOR 0.9% PF (SALINE LOCK) 10ML VIAL/SYR IV SCH ×3 (05:57→20:47)
[2020-09-03] MEDS: SODIUM BICARBONATE 650 MG TAB PO SCH ×3 (05:57→20:46)
[2020-09-03] MEDS ORDERED: SODIUM CHL 0.9% 1000 ML BAG XX ONE (07:00)
[2020-09-03 07:30] VITALS: BP 110/64
[2020-09-03 08:17] LABS: Basophils # (auto) 0 10 ^3/uL (0-0.2); Basophils % (auto) 0.3 % (0.0-2.0); Eosinophils # (auto) 0 10 ^3/uL (0-0.8); Hematocrit 27.6 % (41.0-53.0); Hemoglobin 9.3 g/dL (13.5-17.5); Lymphocytes # (auto) 0.6 10 ^3/uL (0.4-5.4); Lymphocytes % (auto) 5.1 % (10.0-50.0); Mean Corpuscular Hemoglobin 30.1 pg (28.0-32.0); Mean Corpuscular Hgb Conc. 33.5 g/dL (32.0-36.0); Mean Corpuscular Volume 89.9 fL (80.0-100.0); Monocytes % (auto) 8.8 % (0.0-12.0); Neutrophils # (auto) 10.1 10 ^3/uL (1.6-8.6); Neutrophils % (auto) 85.8 % (37.0-80.0); Platelet Count (auto) 191 10^3/uL (140-450); Red Blood Cells 3.08 10^6/uL (4.5-5.90); Red Cell Distribution Width 14.1 % (11.8-14.3); White Blood Cell 11.8 10^3/uL (4.4-10.8)
[2020-09-03 08:34] LABS: INR 1.15 (0.9-1.15)
[2020-09-03 08:38] LABS: Potassium 3.5 mmol/L (3.5-5.1)
[2020-09-03 08:43] LABS: BUN/Creatinine Ratio 24.5; Calcium 8.5 mg/dL (8.5-10.1)
[2020-09-03 09:00] VITALS: BP 135/72
[2020-09-03] MEDS ORDERED: fentaNYL CITRATE 100 MCG/2 ML VL ONE (09:27)
[2020-09-03] MEDS ORDERED: MIDAZOLAM HCL 1MG/1ML-2 ML VIAL ONE (09:28)
[2020-09-03] MEDS ORDERED: HEPARIN SODIUM (PORCINE) 5000 UNITS/ML 1ML VIAL ONE (09:29)
[2020-09-03] MEDS ORDERED: LIDOCAINE 2%HCL (LOCAL ANESTH.) INJ 20ML MDV ONE (09:29)
[2020-09-03] MEDS ORDERED: IODIXANOL 320MG/ML 100ML BTL IV ONE (10:26)
[2020-09-03] MEDS: ASPirin 81 mg TAB PO SCH (12:27)
[2020-09-03] MEDS: DOXYCYCLINE 100 MG TAB/CAP PO SCH ×2 (12:27→20:47)
[2020-09-03 17:00] VITALS: BP 133/66
[2020-09-03] MEDS: ATORVASTATIN 20 MG TAB PO SCH (20:46)
[2020-09-03 22:17] VITALS: BP 134/70
[2020-09-04] MEDS: InsuLIN REG 1unit/0.01ml Soln (100units/ml) SC SCH ×4 (00:19→17:39)
[2020-09-04] MEDS: ACCU-CHEK COMFORT CURVE STRIP VI SCH ×4 (00:41→17:39)
[2020-09-04] MEDS: PIPERACILLIN-TAZOB 2.25GM 50 ML IV SCH ×4 (02:49→22:11)
[2020-09-04 05:15] VITALS: BP 125/68
[2020-09-04 05:25] LABS: Basophils # (auto) 0 10 ^3/uL (0-0.2); Basophils % (auto) 0.1 % (0.0-2.0); Eosinophils # (auto) 0 10 ^3/uL (0-0.8); Eosinophils % (auto) 0.2 % (0.0-7.0); Hematocrit 24.3 % (41.0-53.0); Hemoglobin 8.5 g/dL (13.5-17.5); Lymphocytes # (auto) 0.8 10 ^3/uL (0.4-5.4); Lymphocytes % (auto) 9.4 % (10.0-50.0); Mean Corpuscular Hemoglobin 30.9 pg (28.0-32.0); Mean Corpuscular Hgb Conc. 35.2 g/dL (32.0-36.0); Mean Corpuscular Volume 87.8 fL (80.0-100.0); Monocytes % (auto) 11.6 % (0.0-12.0); Neutrophils # (auto) 6.7 10 ^3/uL (1.6-8.6); Neutrophils % (auto) 78.7 % (37.0-80.0); Platelet Count (auto) 174 10^3/uL (140-450); Red Blood Cells 2.76 10^6/uL (4.5-5.90); Red Cell Distribution Width 13.9 % (11.8-14.3); White Blood Cell 8.5 10^3/uL (4.4-10.8)
[2020-09-04 05:46] LABS: Calcium 7.6 mg/dL (8.5-10.1); Potassium 3.1 mmol/L (3.5-5.1)
[2020-09-04 05:49] LABS: BUN/Creatinine Ratio 25.9
[2020-09-04] MEDS: SODIUM BICARBONATE 650 MG TAB PO SCH ×3 (06:43→22:11)
[2020-09-04] MEDS: SODIUM CHLOR 0.9% PF (SALINE LOCK) 10ML VIAL/SYR IV SCH ×3 (06:43→22:09)
[2020-09-04 08:00] VITALS: BP 123/65
[2020-09-04] MEDS: ASPirin 81 mg TAB PO SCH (10:15)
[2020-09-04] MEDS: DOXYCYCLINE 100 MG TAB/CAP PO SCH (10:15)
[2020-09-04] MEDS ORDERED: POTASSIUM CHL 20 Meq TABLET PO ONE (10:30)
[2020-09-04] MEDS ORDERED: POTASSIUM EFFERVESENT TAB 25 MEQ GT ONE (10:30)
[2020-09-04 15:57] VITALS: BP 131/66
[2020-09-04 21:00] VITALS: BP 135/71
[2020-09-04] MEDS: ATORVASTATIN 20 MG TAB PO SCH (22:12)
[2020-09-05] MEDS: PIPERACILLIN-TAZOB 2.25GM 50 ML IV SCH ×2 (03:03→09:00)
[2020-09-05 05:00] VITALS: BP_SYST 145; BP_SYST 91; BP_DIAS 49; BP_DIAS 65
[2020-09-05 05:03] LABS: Basophils # (auto) 0 10 ^3/uL (0-0.2); Basophils % (auto) 0.1 % (0.0-2.0); Eosinophils # (auto) 0 10 ^3/uL (0-0.8); Eosinophils % (auto) 0.2 % (0.0-7.0); Hematocrit 26.4 % (41.0-53.0); Hemoglobin 9.2 g/dL (13.5-17.5); Lymphocytes # (auto) 0.8 10 ^3/uL (0.4-5.4); Lymphocytes % (auto) 8.7 % (10.0-50.0); Mean Corpuscular Hemoglobin 31.2 pg (28.0-32.0); Mean Corpuscular Hgb Conc. 34.8 g/dL (32.0-36.0); Mean Corpuscular Volume 89.7 fL (80.0-100.0); Monocytes # (auto) 1.1 10 ^3/uL (0-1.3); Monocytes % (auto) 11.9 % (0.0-12.0); Neutrophils # (auto) 7.5 10 ^3/uL (1.6-8.6); Neutrophils % (auto) 79.1 % (37.0-80.0); Platelet Count (auto) 185 10^3/uL (140-450); Red Blood Cells 2.95 10^6/uL (4.5-5.90); Red Cell Distribution Width 13.8 % (11.8-14.3); White Blood Cell 9.5 10^3/uL (4.4-10.8)
[2020-09-05 05:24] LABS: Potassium 3.5 mmol/L (3.5-5.1)
[2020-09-05 05:30] LABS: BUN/Creatinine Ratio 22.7
[2020-09-05] MEDS: SODIUM CHLOR 0.9% PF (SALINE LOCK) 10ML VIAL/SYR IV SCH (05:37)
[2020-09-05] MEDS: SODIUM BICARBONATE 650 MG TAB PO SCH (05:43)
[2020-09-05] MEDS: InsuLIN REG 1unit/0.01ml Soln (100units/ml) SC SCH ×3 (05:44→12:00)
[2020-09-05] MEDS: ACCU-CHEK COMFORT CURVE STRIP VI SCH ×3 (06:00→12:00)
[2020-09-05 08:00] VITALS: BP 142/75
[2020-09-05] MEDS ORDERED: HEPARIN 1,000 UNITS/ml 1ML VIAL IV ONE (09:00)
[2020-09-05] MEDS: ASPirin 81 mg TAB PO SCH (09:18)
[2020-09-05] MEDS ORDERED: LEVO500T21 PO (12:51)
== END 2020-09-05 13:45 | disposition left against medical advice (07) | DRG 242 ==
LOC: TELE-CENTR 18:20 → DOU IN ICU 08-30 13:58 → TELE-CENTR 08-31 13:16
PROVIDERS: ADMIT Internal Medicine Nephrology; ATTEND Internal Medicine Nephrology
PROC: 0JH606Z Insertion of Pacemaker, Dual Chamber into Chest Subcutaneous Tissue and Fascia, Open Approach (ICD-10-PCS; 2020-08-31)
PROC: 02HK3JZ Insertion of Pacemaker Lead into Right Ventricle, Percutaneous Approach (ICD-10-PCS; 2020-08-31)
PROC: 02H63JZ Insertion of Pacemaker Lead into Right Atrium, Percutaneous Approach (ICD-10-PCS; 2020-08-31)
PROC: 0JH63XZ Insertion of Tunneled Vascular Access Device into Chest Subcutaneous Tissue and Fascia, Percutaneous Approach (ICD-10-PCS; 2020-08-31)
PROC: 5A09357 Assistance with Respiratory Ventilation, Less than 24 Consecutive Hours, Continuous Positive Airway Pressure (ICD-10-PCS; 2020-09-02)
PROC: 02HV33Z Insertion of Infusion Device into Superior Vena Cava, Percutaneous Approach (ICD-10-PCS; principal; 2020-09-03)
PROC: B5181ZA Fluoroscopy of Superior Vena Cava using Low Osmolar Contrast, Guidance (ICD-10-PCS; 2020-09-03)
PROC: B548ZZA Ultrasonography of Superior Vena Cava, Guidance (ICD-10-PCS; 2020-09-03)
PROC: 02H633Z Insertion of Infusion Device into Right Atrium, Percutaneous Approach (ICD-10-PCS; 2020-09-03)
PROC: 5A1D70Z Performance of Urinary Filtration, Intermittent, Less than 6 Hours Per Day (ICD-10-PCS; 2020-09-03)
PROC: 5A1D70Z Performance of Urinary Filtration, Intermittent, Less than 6 Hours Per Day (ICD-10-PCS; 2020-09-05)
DX: I44.2 Atrioventricular block, complete (principal); I50.31 Acute diastolic (congestive) heart failure; J69.0 Pneumonitis due to inhalation of food and vomit; J96.01 Acute respiratory failure with hypoxia; N18.6 End stage renal disease; N17.9 Acute kidney failure, unspecified; I13.2 Hypertensive heart and chronic kidney disease with heart failure and with stage 5 chronic kidney disease, or end stage renal disease; E11.21 Type 2 diabetes mellitus with diabetic nephropathy; E11.40 Type 2 diabetes mellitus with diabetic neuropathy, unspecified; E78.5 Hyperlipidemia, unspecified; E87.5 Hyperkalemia; Z53.29 Procedure and treatment not carried out because of patient's decision for other reasons; Z20.822 Contact with and (suspected) exposure to COVID-19; E11.22 Type 2 diabetes mellitus with diabetic chronic kidney disease; Z86.73 Personal history of transient ischemic attack (TIA), and cerebral infarction without residual deficits; Z99.2 Dependence on renal dialysis
CPT/HCPCS: 36415; 36600; 71045; 76942; 80048; 80053; 82306; 82805; 82962; 83036; 83735; 83880; 83970; 84100; 84439; 84443; 84484; 85025; 85379; 85610; 85730; 86803; 86850; 86900; 86901; 87040; 87086; 87340; 87426; 90935; 93970; 94660; 99152; 99153; C1785; G0378; J0690; J1642; J1815; J2250; J2405; J2543; Q9967

== ENCOUNTER → 2020-12-26 | Outpatient (CLI) | payer OTHER ==
[~2020-12-26] MED LIST changes: +AMLO-496 PO; -AMLO10TA13 PO; +ASPI-543 PO; +INSU70IN3 SC; +LEVO500T31 PO; +MULT-228 PO
[2020-12-26 12:26] LABS: Basophils # (auto) 0 10 ^3/uL (0-0.2); Basophils % (auto) 0.3 % (0.0-2.0); Eosinophils # (auto) 0.1 10 ^3/uL (0-0.8); Eosinophils % (auto) 0.7 % (0.0-7.0); Hematocrit 36.7 % (41.0-53.0); Hemoglobin 12.4 g/dL (13.5-17.5); Lymphocytes # (auto) 1.6 10 ^3/uL (0.4-5.4); Lymphocytes % (auto) 18.6 % (10.0-50.0); Mean Corpuscular Hemoglobin 29.9 pg (28.0-32.0); Mean Corpuscular Hgb Conc. 33.9 g/dL (32.0-36.0); Mean Corpuscular Volume 88.3 fL (80.0-100.0); Monocytes # (auto) 0.9 10 ^3/uL (0-1.3); Monocytes % (auto) 10.2 % (0.0-12.0); Neutrophils # (auto) 6.1 10 ^3/uL (1.6-8.6); Neutrophils % (auto) 70.2 % (37.0-80.0); Nucleated Red Blood Cells % 0.1 %; Platelet Count (auto) 191 10^3/uL (140-450); Red Blood Cells 4.16 10^6/uL (4.5-5.90); Red Cell Distribution Width 16.4 % (11.8-14.3); White Blood Cell 8.7 10^3/uL (4.4-10.8)
[2020-12-26 12:41] LABS: Potassium 4.2 mmol/L (3.5-5.1)
[2020-12-26 12:47] LABS: BUN/Creatinine Ratio 6.6; Calcium 9.3 mg/dL (8.5-10.1); Magnesium 2.7 mg/dL (1.6-2.6); Phosphorus 6.9 mg/dL (2.5-4.90); Uric Acid 4.2 mg/dL (3.5-7.2)
== END | disposition home or self-care (01) ==
LOC: LAB 10:48
DX: I12.0 Hypertensive chronic kidney disease with stage 5 chronic kidney disease or end stage renal disease (principal); N18.6 End stage renal disease; D63.1 Anemia in chronic kidney disease; N25.81 Secondary hyperparathyroidism of renal origin; Z99.2 Dependence on renal dialysis
CPT/HCPCS: 36415; 80048; 82040; 82306; 83036; 83735; 83970; 84100; 84156; 84550; 85025

== ENCOUNTER 2021-04-11 08:45 | Inpatient (IN) | payer OTHER ==
[~2021-04-11] VITALS: Ht 180.3 cm; Wt 38.9 kg
[2021-04-11 09:35] LABS: Basophils # (auto) 0 10 ^3/uL (0-0.2); Basophils % (auto) 0.2 % (0.0-2.0); Eosinophils # (auto) 0 10 ^3/uL (0-0.8); Eosinophils % (auto) 0.4 % (0.0-7.0); Hematocrit 26.5 % (41.0-53.0); Hemoglobin 9.2 g/dL (13.5-17.5); Lymphocytes # (auto) 0.9 10 ^3/uL (0.4-5.4); Lymphocytes % (auto) 11.1 % (10.0-50.0); Mean Corpuscular Hemoglobin 30.9 pg (28.0-32.0); Mean Corpuscular Hgb Conc. 34.5 g/dL (32.0-36.0); Mean Corpuscular Volume 89.6 fL (80.0-100.0); Monocytes # (auto) 0.6 10 ^3/uL (0-1.3); Monocytes % (auto) 6.9 % (0.0-12.0); Neutrophils # (auto) 6.9 10 ^3/uL (1.6-8.6); Neutrophils % (auto) 81.4 % (37.0-80.0); Red Blood Cells 2.96 10^6/uL (4.5-5.90); Red Cell Distribution Width 16.7 % (11.8-14.3); White Blood Cell 8.4 10^3/uL (4.4-10.8)
[2021-04-11 09:47] LABS: Albumin 3.9 g/dL (3.4-5.0); Potassium 5.5 mmol/L (3.5-5.1)
[2021-04-11 09:50] LABS: BUN/Creatinine Ratio 5.2; Bilirubin, Total 0.4 mg/dL (0.2-1.0); INR 1.07 (0.9-1.15); Partial Thromboplastin Time 24.8 sec (23.6-33.0); Total Protein 7.8 g/dL (6.4-8.2)
[2021-04-11] MEDS ORDERED: ACETAMINOPHEN 500 MG TAB PO PRN (16:00)
[2021-04-11] MEDS ORDERED: DEXTROSE (50%) 50ML SYRG IV PRN (16:00)
[2021-04-11] MEDS ORDERED: DOCUSATE CALCIUM 240 MG CAP PO PRN (16:00)
[2021-04-11] MEDS ORDERED: LORazepam 0.5 MG TAB PO PRN (16:00)
[2021-04-11] MEDS: InsuLIN REG 1unit/0.01ml Soln (100units/ml) SC SCH ×2 (16:00→19:51)
[2021-04-11] MEDS ORDERED: hydrALAZINE HCL 20 MG/ML VL IV PRN (16:00)
[2021-04-11] MEDS ORDERED: NITROGLYCERIN 0.4 MG SL TAB SL PRN (16:00)
[2021-04-11] MEDS ORDERED: ONDANSETRON HCL 4 MG/2 ML VIAL IV PRN (16:00)
[2021-04-11] MEDS ORDERED: MORPHINE SULFATE INJECTION 2 MG/2 ML SYRG IV PRN ×2 (16:00)
[2021-04-11] MEDS ORDERED: SODIUM ZIRCONIUM CYCL 10 GM PAK PO ONE (16:15)
[2021-04-11] MEDS: ACCU-CHEK COMFORT CURVE STRIP VI SCH ×2 (16:32→19:51)
[2021-04-11 20:27] LABS: Potassium 4.9 mmol/L (3.5-5.1)
[2021-04-11] MEDS ORDERED: INSULIN LANTUS (GLARGINE) 1 /0.01ml (100units/ml) SC SCH (22:00)
[2021-04-11] MEDS: SODIUM ZIRCONIUM CYCL 10 GM PAK PO SCH (22:32)
[2021-04-12] MEDS: ACCU-CHEK COMFORT CURVE STRIP VI SCH ×4 (00:12→12:04)
[2021-04-12] MEDS: InsuLIN REG 1unit/0.01ml Soln (100units/ml) SC SCH ×4 (04:00→12:00)
[2021-04-12 05:04] LABS: Basophils # (auto) 0 10 ^3/uL (0-0.2); Eosinophils # (auto) 0.1 10 ^3/uL (0-0.8); Monocytes # (auto) 0.8 10 ^3/uL (0-1.3)
[2021-04-12 05:07] LABS: Basophils % (auto) 0.4 % (0.0-2.0); Eosinophils % (auto) 1.4 % (0.0-7.0); Hematocrit 24.5 % (41.0-53.0); Hemoglobin 8.5 g/dL (13.5-17.5); Lymphocytes # (auto) 1.5 10 ^3/uL (0.4-5.4); Lymphocytes % (auto) 19.9 % (10.0-50.0); Mean Corpuscular Hemoglobin 31.1 pg (28.0-32.0); Mean Corpuscular Hgb Conc. 34.7 g/dL (32.0-36.0); Mean Corpuscular Volume 89.6 fL (80.0-100.0); Monocytes % (auto) 10.3 % (0.0-12.0); Neutrophils # (auto) 5.2 10 ^3/uL (1.6-8.6); Red Blood Cells 2.74 10^6/uL (4.5-5.90); Red Cell Distribution Width 17.1 % (11.8-14.3); White Blood Cell 7.7 10^3/uL (4.4-10.8)
[2021-04-12 05:34] LABS: Potassium 5.1 mmol/L (3.5-5.1)
[2021-04-12 05:44] LABS: Albumin 3.7 g/dL (3.4-5.0); BUN/Creatinine Ratio 5.7; Bilirubin, Total 0.4 mg/dL (0.2-1.0); Calcium 8.8 mg/dL (8.5-10.1); Magnesium 2.9 mg/dL (1.6-2.6); Phosphorus 5.7 mg/dL (2.5-4.90); Total Protein 7.4 g/dL (6.4-8.2)
[2021-04-12] MEDS: SODIUM ZIRCONIUM CYCL 10 GM PAK PO SCH (06:12)
[2021-04-12] MEDS ORDERED: LIDOCAINE 2%HCL (LOCAL ANESTH.) INJ 20ML MDV ONE ×3 (08:55→13:44)
[2021-04-12] MEDS ORDERED: fentaNYL CITRATE 100 MCG/2 ML VL ONE (08:56)
[2021-04-12] MEDS ORDERED: MIDAZOLAM HCL 2MG/2ML 2ml VIAL (1mg/ml) ONE (08:56)
[2021-04-12] MEDS ORDERED: HEPARIN SODIUM (PORCINE) 5000 UNITS/ML 1ML VIAL ONE (08:56)
[2021-04-12] MEDS ORDERED: PANTOPRAZOLE 40 MG TAB PO SCH (10:00)
[2021-04-12] MEDS ORDERED: ENOXAPARIN SOD 30 MG/0.3 ML SYRINGE SC SCH (10:00)
[2021-04-12 10:29] VITALS: BP 162/74
[2021-04-12 12:03] LABS: Basophils # (auto) 0 10 ^3/uL (0-0.2); Basophils % (auto) 0.4 % (0.0-2.0); Eosinophils # (auto) 0.1 10 ^3/uL (0-0.8); Eosinophils % (auto) 1.2 % (0.0-7.0); Hematocrit 27.5 % (41.0-53.0); Hemoglobin 9.5 g/dL (13.5-17.5); Lymphocytes # (auto) 1.8 10 ^3/uL (0.4-5.4); Lymphocytes % (auto) 21.5 % (10.0-50.0); Mean Corpuscular Hemoglobin 31.2 pg (28.0-32.0); Mean Corpuscular Hgb Conc. 34.7 g/dL (32.0-36.0); Mean Corpuscular Volume 89.9 fL (80.0-100.0); Monocytes # (auto) 0.6 10 ^3/uL (0-1.3); Monocytes % (auto) 7.4 % (0.0-12.0); Neutrophils # (auto) 5.8 10 ^3/uL (1.6-8.6); Neutrophils % (auto) 69.5 % (37.0-80.0); Red Blood Cells 3.06 10^6/uL (4.5-5.90); Red Cell Distribution Width 16.9 % (11.8-14.3); White Blood Cell 8.3 10^3/uL (4.4-10.8)
[2021-04-12 12:37] LABS: Ferritin 1140.3 ng/mL (10-322)
[2021-04-12 12:52] LABS: % Iron Saturation 38.5 % (20-55)
[2021-04-12 12:56] LABS: Folate (Folic Acid) 21.09 ng/mL (5.38-24)
[2021-04-12] MEDS ORDERED: IODIXANOL 320MG/ML 100ML BTL IV ONE (13:33)
[2021-04-12] MEDS ORDERED: SODIUM ZIRCONIUM CYCL 10 GM PAK PO ONE (14:45)
== END 2021-04-12 17:35 | disposition home or self-care (01) | DRG 673 ==
LOC: ER 08:45 → OVERFLOW 15:57
PROVIDERS: ADMIT Family Medicine; ATTEND Internal Medicine
PROC: 0JH63XZ Insertion of Tunneled Vascular Access Device into Chest Subcutaneous Tissue and Fascia, Percutaneous Approach (ICD-10-PCS; principal; 2021-04-12)
PROC: 02HV33Z Insertion of Infusion Device into Superior Vena Cava, Percutaneous Approach (ICD-10-PCS; 2021-04-12)
PROC: B548ZZA Ultrasonography of Superior Vena Cava, Guidance (ICD-10-PCS; 2021-04-12)
PROC: B5181ZA Fluoroscopy of Superior Vena Cava using Low Osmolar Contrast, Guidance (ICD-10-PCS; 2021-04-12)
PROC: 02H633Z Insertion of Infusion Device into Right Atrium, Percutaneous Approach (ICD-10-PCS; 2021-04-12)
DX: T82.42XA Displacement of vascular dialysis catheter, initial encounter (principal); N18.6 End stage renal disease; I12.0 Hypertensive chronic kidney disease with stage 5 chronic kidney disease or end stage renal disease; E87.5 Hyperkalemia; D63.1 Anemia in chronic kidney disease; E11.22 Type 2 diabetes mellitus with diabetic chronic kidney disease; E78.5 Hyperlipidemia, unspecified; I48.91 Unspecified atrial fibrillation; Y83.8 Other surgical procedures as the cause of abnormal reaction of the patient, or of later complication, without mention of misadventure at the time of the procedure; Z20.822 Contact with and (suspected) exposure to COVID-19; N40.0 Benign prostatic hyperplasia without lower urinary tract symptoms; Z99.2 Dependence on renal dialysis; Z82.0 Family history of epilepsy and other diseases of the nervous system; Z83.3 Family history of diabetes mellitus; Y92.89 Other specified places as the place of occurrence of the external cause
CPT/HCPCS: 36415; 71045; 76000; 76942; 80051; 80053; 82607; 82668; 82728; 82746; 82962; 83036; 83540; 83550; 83615; 83735; 84100; 84443; 85025; 85045; 85610; 85730; 87426; 93005; 99152; 99153; 99291; G0378; J1815; J2250; Q9967

== ENCOUNTER 2021-04-17 01:30 | Inpatient (IN) | payer OTHER, MEDICAID ==
[2021-04-17] VITALS (12 sets, daily range): BP systolic 111–130; BP diastolic 62–76
[~2021-04-17] VITALS: Ht 180.3 cm; Wt 85.7 kg
[2021-04-17 05:08] LABS: Basophils # (auto) 0 10 ^3/uL (0-0.2); Basophils % (auto) 0.2 % (0.0-2.0); Eosinophils # (auto) 0 10 ^3/uL (0-0.8); Hematocrit 25.6 % (41.0-53.0); Hemoglobin 8.8 g/dL (13.5-17.5); Lymphocytes # (auto) 1.1 10 ^3/uL (0.4-5.4); Mean Corpuscular Hemoglobin 31.4 pg (28.0-32.0); Mean Corpuscular Hgb Conc. 34.5 g/dL (32.0-36.0); Mean Corpuscular Volume 90.8 fL (80.0-100.0); Monocytes % (auto) 6.6 % (0.0-12.0); Neutrophils # (auto) 13.1 10 ^3/uL (1.6-8.6); Neutrophils % (auto) 86.2 % (37.0-80.0); Red Blood Cells 2.82 10^6/uL (4.5-5.90); Red Cell Distribution Width 17.5 % (11.8-14.3); White Blood Cell 15.2 10^3/uL (4.4-10.8)
[2021-04-17 05:26] LABS: INR 1.08 (0.9-1.15); Partial Thromboplastin Time 27.9 sec (23.6-33.0)
[2021-04-17 05:28] LABS: Albumin 3.5 g/dL (3.4-5.0); Calcium 9.1 mg/dL (8.5-10.1); Potassium 4.4 mmol/L (3.5-5.1)
[2021-04-17 05:32] LABS: BUN/Creatinine Ratio 5.4; Bilirubin, Total 0.5 mg/dL (0.2-1.0); Total Protein 7.8 g/dL (6.4-8.2)
[2021-04-17] MEDS ORDERED: NITROGLYCERIN 0.4 MG SL TAB SL PRN (06:00)
[2021-04-17] MEDS ORDERED: MORPHINE SULFATE INJECTION 2 MG/2 ML SYRG IV PRN (06:00)
[2021-04-17] MEDS ORDERED: ONDANSETRON HCL 4 MG/2 ML VIAL IV PRN (06:00)
[2021-04-17] MEDS: SEVELAMER 800 MG TAB PO SCH ×3 (08:00→18:39)
[2021-04-17] MEDS ORDERED: ASPirin 81 mg TAB PO SCH (10:00)
[2021-04-17] MEDS: amLODIPine BESYLATE 5 MG TAB PO SCH (10:39)
[2021-04-17] MEDS: FINASTERIDE 5 MG TAB PO SCH (10:39)
[2021-04-17] MEDS: PANTOPRAZOLE 40 MG TAB PO SCH (10:40)
[2021-04-17] MEDS ORDERED: ASPirin 81 mg TAB PO ONE (11:15)
[2021-04-17] MEDS ORDERED: CLOPIDOGREL 300 MG TAB PO ONE (11:15)
[2021-04-17] MEDS ORDERED: ATORVASTATIN 20 MG TAB PO ONE (11:45)
[2021-04-17 12:12] LABS: Urine WBC None Seen /hpf (0 - 3)
[2021-04-17 12:35] LABS: Urine Bacteria NONE SEEN /hpf (None Seen); Urine Blood TRACE /uL (Negative); Urine Specific Gravity 1.009 (1.001-1.035)
[2021-04-17] MEDS ORDERED: IOHEXOL 350 MG/ML 100ML IJ ONE (15:51)
[2021-04-17] MEDS ORDERED: LIDOCAINE 2%HCL (LOCAL ANESTH.) INJ 20ML MDV ONE (15:52)
[2021-04-17] MEDS ORDERED: MIDAZOLAM HCL 2MG/2ML 2ml VIAL (1mg/ml) ONE (16:01)
[2021-04-17] MEDS ORDERED: ANGIOMAX 250 MG VIAL IV ONE (16:01)
[2021-04-17] MEDS ORDERED: SODIUM CHL 0.9% 50 ML ONE (16:01)
[2021-04-17] MEDS ORDERED: fentaNYL CITRATE 100 MCG/2 ML VL ONE (16:01)
[2021-04-17] MEDS: ACETAMINOPHEN 325 MG TAB PO PRN (20:42)
[2021-04-17] MEDS: ATORVASTATIN 20 MG TAB PO SCH (21:14)
[2021-04-18 05:00] VITALS: BP 105/60
[2021-04-18 06:45] LABS: Basophils # (auto) 0 10 ^3/uL (0-0.2); Eosinophils # (auto) 0 10 ^3/uL (0-0.8); Hemoglobin 7.6 g/dL (13.5-17.5); Lymphocytes # (auto) 0.7 10 ^3/uL (0.4-5.4); Neutrophils % (auto) 84.8 % (37.0-80.0); Red Blood Cells 2.38 10^6/uL (4.5-5.90)
[2021-04-18 06:47] LABS: Basophils % (auto) 0.3 % (0.0-2.0); Eosinophils % (auto) 0.1 % (0.0-7.0); Hematocrit 21.7 % (41.0-53.0); Lymphocytes % (auto) 5.1 % (10.0-50.0); Mean Corpuscular Hemoglobin 31.9 pg (28.0-32.0); Monocytes # (auto) 1.3 10 ^3/uL (0-1.3); Monocytes % (auto) 9.7 % (0.0-12.0); Neutrophils # (auto) 10.9 10 ^3/uL (1.6-8.6); Red Cell Distribution Width 17.9 % (11.8-14.3); White Blood Cell 12.9 10^3/uL (4.4-10.8)
[2021-04-18] MEDS ORDERED: SODIUM CHL 0.9% 1000 ML BAG XX ONE (07:00)
[2021-04-18 07:16] LABS: Potassium 4.7 mmol/L (3.5-5.1)
[2021-04-18 07:23] LABS: Albumin 2.9 g/dL (3.4-5.0); BUN/Creatinine Ratio 7.1; Bilirubin, Total 0.6 mg/dL (0.2-1.0); Calcium 8.1 mg/dL (8.5-10.1); Total Protein 6.9 g/dL (6.4-8.2)
[2021-04-18] MEDS: SEVELAMER 800 MG TAB PO SCH ×3 (08:36→17:37)
[2021-04-18] MEDS: ASPirin 81 mg TAB PO SCH (08:38)
[2021-04-18] MEDS: amLODIPine BESYLATE 5 MG TAB PO SCH (08:39)
[2021-04-18] MEDS: FINASTERIDE 5 MG TAB PO SCH (08:39)
[2021-04-18] MEDS: PANTOPRAZOLE 40 MG TAB PO SCH (08:39)
[2021-04-18 09:00] VITALS: BP 109/60
[2021-04-18 13:00] VITALS: BP 125/74
[2021-04-18 17:00] VITALS: BP 119/68
[2021-04-18] MEDS ORDERED: EPOETIN ALFA-EPBX 10,000 UNIT/1ML VIAL SC ONE (21:00)
[2021-04-18 21:38] VITALS: BP 100/60
[2021-04-18] MEDS: ATORVASTATIN 20 MG TAB PO SCH (21:41)
[2021-04-19 06:00] VITALS: BP 101/54
[2021-04-19] MEDS: ASPirin 81 mg TAB PO SCH (08:20)
[2021-04-19] MEDS: SEVELAMER 800 MG TAB PO SCH ×3 (08:20→18:32)
[2021-04-19] MEDS: FINASTERIDE 5 MG TAB PO SCH (08:20)
[2021-04-19] MEDS: PANTOPRAZOLE 40 MG TAB PO SCH (08:21)
[2021-04-19 09:00] VITALS: BP 115/67
[2021-04-19] MEDS: amLODIPine BESYLATE 5 MG TAB PO SCH (10:00)
[2021-04-19] MEDS: ACETAMINOPHEN 325 MG TAB PO PRN (15:25)
[2021-04-19 17:53] VITALS: BP 115/67
[2021-04-19 22:00] VITALS: BP 110/60
[2021-04-20] MEDS ORDERED: SODIUM CHL 0.9% 1000 ML BAG XX ONE (07:00)
[2021-04-20] MEDS ORDERED: EPOETIN ALFA-EPBX 10,000 UNIT/1ML VIAL SC ONE (21:00)
== END 2021-04-19 22:06 | disposition short-term general hospital (02) | DRG 280 ==
LOC: DOU IN ICU 01:30 → TELE-WESTW 22:50
PROVIDERS: ADMIT Nurse Practitioner; ATTEND Internal Medicine
PROC: 4A023N7 Measurement of Cardiac Sampling and Pressure, Left Heart, Percutaneous Approach (ICD-10-PCS; principal; 2021-04-17)
PROC: B2111ZZ Fluoroscopy of Multiple Coronary Arteries using Low Osmolar Contrast (ICD-10-PCS; 2021-04-17)
PROC: B2151ZZ Fluoroscopy of Left Heart using Low Osmolar Contrast (ICD-10-PCS; 2021-04-17)
PROC: 5A1D70Z Performance of Urinary Filtration, Intermittent, Less than 6 Hours Per Day (ICD-10-PCS; 2021-04-18)
DX: I21.4 Non-ST elevation (NSTEMI) myocardial infarction (principal); J96.00 Acute respiratory failure, unspecified whether with hypoxia or hypercapnia; N18.6 End stage renal disease; J96.01 Acute respiratory failure with hypoxia; I50.33 Acute on chronic diastolic (congestive) heart failure; I13.2 Hypertensive heart and chronic kidney disease with heart failure and with stage 5 chronic kidney disease, or end stage renal disease; Z99.2 Dependence on renal dialysis; E87.5 Hyperkalemia; I25.5 Ischemic cardiomyopathy; D63.1 Anemia in chronic kidney disease; E11.22 Type 2 diabetes mellitus with diabetic chronic kidney disease; E78.5 Hyperlipidemia, unspecified; I25.10 Atherosclerotic heart disease of native coronary artery without angina pectoris; I48.91 Unspecified atrial fibrillation; N40.0 Benign prostatic hyperplasia without lower urinary tract symptoms; Z82.0 Family history of epilepsy and other diseases of the nervous system; Z83.3 Family history of diabetes mellitus; Z95.0 Presence of cardiac pacemaker; Z79.899 Other long term (current) drug therapy
CPT/HCPCS: 36415; 71045; 80053; 81001; 83880; 84484; 85025; 85610; 85730; 86850; 86900; 86901; 87081; 87426; 90935; 93306; 99152; G0378; J2250

== ENCOUNTER → 2021-05-29 | Outpatient (CLI) | payer OTHER, MEDICAID | END | disposition home or self-care (01) | LOC: LAB 08:34 → RT 09:07 | PROVIDERS: ATTEND Internal Medicine | DX: I50.9 Heart failure, unspecified (principal); Z98.890 Other specified postprocedural states; Z79.899 Other long term (current) drug therapy | CPT/HCPCS: 36600; 82805 ==

== ENCOUNTER 2021-06-20 10:02 | Emergency (ER) | payer OTHER, MEDICAID ==
[~2021-06-20] VITALS: Ht 177.8 cm; Wt 82.1 kg
[2021-06-20 11:30] LABS: Basophils # (auto) 0 10 ^3/uL (0-0.2); Eosinophils # (auto) 0.1 10 ^3/uL (0-0.8); Mean Corpuscular Hemoglobin 30.3 pg (28.0-32.0); Monocytes # (auto) 0.4 10 ^3/uL (0-1.3); White Blood Cell 6.7 10^3/uL (4.4-10.8)
[2021-06-20 11:32] LABS: Basophils % (auto) 0.2 % (0.0-2.0); Eosinophils % (auto) 0.8 % (0.0-7.0); Hematocrit 20.9 % (41.0-53.0); Lymphocytes # (auto) 0.7 10 ^3/uL (0.4-5.4); Lymphocytes % (auto) 10.9 % (10.0-50.0); Mean Corpuscular Hgb Conc. 33.3 g/dL (32.0-36.0); Mean Corpuscular Volume 91.2 fL (80.0-100.0); Monocytes % (auto) 6.6 % (0.0-12.0); Neutrophils # (auto) 5.5 10 ^3/uL (1.6-8.6); Neutrophils % (auto) 81.5 % (37.0-80.0); Red Blood Cells 2.29 10^6/uL (4.5-5.90)
[2021-06-20 11:46] LABS: Calcium 8.6 mg/dL (8.5-10.1); Potassium 4.8 mmol/L (3.5-5.1)
[2021-06-20 11:52] LABS: BUN/Creatinine Ratio 6.1; Bilirubin, Total 0.3 mg/dL (0.2-1.0); Total Protein 6.7 g/dL (6.4-8.2)
[2021-06-20 15:20] VITALS: BP 126/60
[2021-06-20 15:39] VITALS: BP 118/57
[2021-06-20 16:51] VITALS: BP 132/73
[2021-06-20 17:43] VITALS: BP 134/73
== END 2021-06-20 17:49 | disposition home or self-care (01) ==
LOC: ER 10:02
DX: D64.89 Other specified anemias (principal); I12.0 Hypertensive chronic kidney disease with stage 5 chronic kidney disease or end stage renal disease; E11.22 Type 2 diabetes mellitus with diabetic chronic kidney disease; N18.6 End stage renal disease; Z99.2 Dependence on renal dialysis; Z95.1 Presence of aortocoronary bypass graft; Z79.4 Long term (current) use of insulin; Z79.82 Long term (current) use of aspirin; Z79.899 Other long term (current) drug therapy
CPT/HCPCS: 36415; 36430; 71045; 80053; 85025; 86850; 86900; 86901; 86920; 93005; 99285; J7040; P9016

== ENCOUNTER → 2022-03-17 | Outpatient (CLI) | payer OTHER, MEDICAID | END | disposition home or self-care (01) | LOC: XYW 15:06 | PROVIDERS: ATTEND Internal Medicine | DX: I08.8 Other rheumatic multiple valve diseases (principal); I44.7 Left bundle-branch block, unspecified | CPT/HCPCS: 93306 ==

== ENCOUNTER → 2022-04-11 | Outpatient (CLI) | payer OTHER, MEDICAID ==
[~2022-04-11] VITALS: Ht 177.8 cm; Wt 80.7 kg
[~2022-04-11] MED LIST changes: +ADENOSINE 68 MG in GIVE UN-DILUTED 0 ML IV ONE
== END | disposition home or self-care (01) ==
LOC: XYW 08:31
PROVIDERS: ATTEND Internal Medicine
DX: I44.7 Left bundle-branch block, unspecified (principal); I25.2 Old myocardial infarction; I25.810 Atherosclerosis of coronary artery bypass graft(s) without angina pectoris; R09.89 Other specified symptoms and signs involving the circulatory and respiratory systems; E78.5 Hyperlipidemia, unspecified; I12.9 Hypertensive chronic kidney disease with stage 1 through stage 4 chronic kidney disease, or unspecified chronic kidney disease; E11.22 Type 2 diabetes mellitus with diabetic chronic kidney disease; N18.6 End stage renal disease; Z95.1 Presence of aortocoronary bypass graft; Z99.2 Dependence on renal dialysis
CPT/HCPCS: 78452; 93017; 93886; A9500; J0153

== ENCOUNTER → 2022-05-09 | Outpatient (CLI) | payer OTHER, MEDICAID ==
[~2022-05-09] MED LIST changes: -ADENOSINE 68 MG in GIVE UN-DILUTED 0 ML IV ONE
[2022-05-09 08:07] LABS: Basophils # (auto) 0 10 ^3/uL (0-0.2); Basophils % (auto) 0.4 % (0.0-2.0); Eosinophils # (auto) 0.1 10 ^3/uL (0-0.8); Hemoglobin 10.7 g/dL (13.5-17.5); Monocytes # (auto) 0.7 10 ^3/uL (0-1.3); Monocytes % (auto) 10.4 % (0.0-12.0)
[2022-05-09 08:17] LABS: Eosinophils % (auto) 1.6 % (0.0-7.0); Hematocrit 33.1 % (41.0-53.0); Lymphocytes # (auto) 0.8 10 ^3/uL (0.4-5.4); Lymphocytes % (auto) 12.7 % (10.0-50.0); Mean Corpuscular Hemoglobin 29.7 pg (28.0-32.0); Mean Corpuscular Hgb Conc. 32.4 g/dL (32.0-36.0); Mean Corpuscular Volume 91.5 fL (80.0-100.0); Neutrophils # (auto) 4.9 10 ^3/uL (1.6-8.6); Neutrophils % (auto) 74.9 % (37.0-80.0); Red Blood Cells 3.61 10^6/uL (4.5-5.90); Red Cell Distribution Width 18.5 % (11.8-14.3); White Blood Cell 6.5 10^3/uL (4.4-10.8)
[2022-05-09 08:42] LABS: BUN/Creatinine Ratio 5.7; Bilirubin, Total 0.5 mg/dL (0.2-1.0); Calcium 7.7 mg/dL (8.5-10.1); Total Protein 7.6 g/dL (6.4-8.2)
[2022-05-09 09:00] LABS: Urine Bacteria NONE SEEN /hpf (None Seen); Urine Blood Negative /uL (Negative); Urine Specific Gravity 1.009 (1.001-1.035); Urine WBC 1 /hpf (0 - 3)
[2022-05-09 09:05] LABS: Potassium 5.6 mmol/L (3.5-5.1)
== END | disposition home or self-care (01) ==
LOC: LAB 07:44
PROVIDERS: ATTEND Nurse Practitioner
DX: E78.5 Hyperlipidemia, unspecified (principal); I10 Essential (primary) hypertension; E11.9 Type 2 diabetes mellitus without complications
CPT/HCPCS: 36415; 80053; 80061; 81001; 82043; 83036; 85025

== ENCOUNTER → 2022-06-05 | Outpatient (CLI) | payer MEDICARE, MEDICAID, OTHER | END | disposition home or self-care (01) | LOC: LAB 13:11 | PROVIDERS: ATTEND Nurse Practitioner | DX: E11.9 Type 2 diabetes mellitus without complications (principal); I10 Essential (primary) hypertension; E78.5 Hyperlipidemia, unspecified | CPT/HCPCS: 82270 ==

== ENCOUNTER 2022-08-21 13:19 | Inpatient (IN) | payer OTHER, MEDICAID ==
[~2022-08-21] VITALS: Ht 177.8 cm; Wt 80.0 kg
[2022-08-21 13:41] VITALS: BP 110/63
[2022-08-21 14:20] LABS: Basophils # (auto) 0 10 ^3/uL (0-0.2); Basophils % (auto) 0.3 % (0.0-2.0); Eosinophils # (auto) 0.1 10 ^3/uL (0-0.8); Eosinophils % (auto) 0.9 % (0.0-7.0); Hematocrit 32.8 % (41.0-53.0); Hemoglobin 11.3 g/dL (13.5-17.5); Lymphocytes # (auto) 0.7 10 ^3/uL (0.4-5.4); Mean Corpuscular Hgb Conc. 34.5 g/dL (32.0-36.0); Mean Corpuscular Volume 92.8 fL (80.0-100.0); Monocytes # (auto) 0.5 10 ^3/uL (0-1.3); Monocytes % (auto) 8.8 % (0.0-12.0); Neutrophils # (auto) 4.9 10 ^3/uL (1.6-8.6); Red Blood Cells 3.53 10^6/uL (4.5-5.90); Red Cell Distribution Width 18.4 % (11.8-14.3); White Blood Cell 6.2 10^3/uL (4.4-10.8)
[2022-08-21 14:35] LABS: INR 1.05 (0.9-1.15); Partial Thromboplastin Time 27.6 sec (24.6-33.4)
[2022-08-21 14:37] LABS: Albumin 3.9 g/dL (3.4-5.0); BUN/Creatinine Ratio 5.4; Calcium 8.5 mg/dL (8.5-10.1); Potassium 4.3 mmol/L (3.5-5.1)
[2022-08-21 14:39] LABS: Bilirubin, Total 0.4 mg/dL (0.2-1.0); Total Protein 7.9 g/dL (6.4-8.2)
[2022-08-21] MEDS ORDERED: DOCUSATE SOD 100 MG CAP PO PRN (21:30)
[2022-08-21] MEDS ORDERED: HYDROcodone-ACET 5/325MG TAB PO PRN (21:30)
[2022-08-21] MEDS ORDERED: MORPHINE SULFATE INJ 2 MG/ml SYRG IV PRN (21:30)
[2022-08-21] MEDS ORDERED: MAALOX PLUS or MAALOX 30 ML PO PRN (21:30)
[2022-08-21] MEDS ORDERED: ACETAMINOPHEN 325 MG TAB PO PRN (21:30)
[2022-08-21] MEDS ORDERED: ONDANSETRON HCL 4 MG/2 ML VIAL IV PRN (21:30)
[2022-08-21] MEDS ORDERED: SODIUM CHLORIDE 0.9% 1,000 ML IV SCH (21:30)
[2022-08-21] MEDS ORDERED: DEXTROSE (50%) 50ML SYRG IV PRN (22:00)
[2022-08-22] MEDS ORDERED: ACCU-CHEK COMFORT CURVE STRIP VI SCH
[2022-08-22] MEDS ORDERED: InsuLIN REG 1unit/0.01ml Soln (100units/ml) SC SCH
== END 2022-08-21 21:28 | disposition left against medical advice (07) | DRG 698 ==
LOC: ER 13:19 → OVERFLOW 21:23
PROVIDERS: ADMIT Hospitalist; ATTEND Hospitalist
DX: T82.43XA Leakage of vascular dialysis catheter, initial encounter (principal); N18.6 End stage renal disease; I12.0 Hypertensive chronic kidney disease with stage 5 chronic kidney disease or end stage renal disease; Y84.1 Kidney dialysis as the cause of abnormal reaction of the patient, or of later complication, without mention of misadventure at the time of the procedure; Z53.29 Procedure and treatment not carried out because of patient's decision for other reasons; E11.22 Type 2 diabetes mellitus with diabetic chronic kidney disease; Z95.1 Presence of aortocoronary bypass graft; Y92.89 Other specified places as the place of occurrence of the external cause; Z99.2 Dependence on renal dialysis
CPT/HCPCS: 36415; 71045; 80053; 83880; 84484; 85025; 85610; 85730; G0378

== ENCOUNTER 2022-08-22 07:33 | Emergency (ER) | payer OTHER, MEDICAID ==
[~2022-08-22] VITALS: Ht 175.3 cm; Wt 85.7 kg
[2022-08-22] MEDS ORDERED: ACETAMINOPHEN 325 MG TAB PO PRN (11:00)
[2022-08-22] MEDS ORDERED: ONDANSETRON HCL 4 MG/2 ML VIAL IV PRN (11:00)
[2022-08-22] MEDS ORDERED: NITROGLYCERIN 0.4 MG SL TAB SL PRN (11:00)
[2022-08-22] MEDS ORDERED: HYDROcodone-ACET 5/325MG TAB PO PRN (11:00)
[2022-08-22] MEDS ORDERED: MORPHINE SULFATE INJ 2 MG/ml SYRG IV PRN (11:00)
[2022-08-22] MEDS ORDERED: DOCUSATE SOD 100 MG CAP PO PRN (11:00)
[2022-08-22 11:11] LABS: Basophils # (auto) 0 10 ^3/uL (0-0.2); Basophils % (auto) 0.4 % (0.0-2.0); Eosinophils # (auto) 0.1 10 ^3/uL (0-0.8); Eosinophils % (auto) 0.8 % (0.0-7.0); Hematocrit 31.1 % (41.0-53.0); Hemoglobin 10.9 g/dL (13.5-17.5); Lymphocytes # (auto) 1.1 10 ^3/uL (0.4-5.4); Lymphocytes % (auto) 13.6 % (10.0-50.0); Mean Corpuscular Hemoglobin 32.6 pg (28.0-32.0); Mean Corpuscular Hgb Conc. 35.2 g/dL (32.0-36.0); Mean Corpuscular Volume 92.6 fL (80.0-100.0); Monocytes # (auto) 0.7 10 ^3/uL (0-1.3); Monocytes % (auto) 9.2 % (0.0-12.0); Neutrophils # (auto) 6.1 10 ^3/uL (1.6-8.6); Red Blood Cells 3.36 10^6/uL (4.5-5.90); Red Cell Distribution Width 18.3 % (11.8-14.3); White Blood Cell 8.1 10^3/uL (4.4-10.8)
[2022-08-22] MEDS ORDERED: DEXTROSE (50%) 50ML SYRG IV PRN (11:15)
[2022-08-22 11:27] LABS: INR 1.04 (0.9-1.15); Partial Thromboplastin Time 26.8 sec (24.6-33.4)
[2022-08-22] MEDS ORDERED: ACCU-CHEK COMFORT CURVE STRIP VI SCH (11:30)
[2022-08-22] MEDS ORDERED: InsuLIN REG 1unit/0.01ml Soln (100units/ml) SC SCH ×2 (11:30→22:00)
[2022-08-22 11:36] LABS: Calcium 8.4 mg/dL (8.5-10.1); Potassium 4.7 mmol/L (3.5-5.1)
[2022-08-22 11:40] LABS: BUN/Creatinine Ratio 7.3; Bilirubin, Total 0.4 mg/dL (0.2-1.0); Total Protein 7.3 g/dL (6.4-8.2)
[2022-08-22 12:26] VITALS: BP 141/69
[2022-08-22] MEDS ORDERED: SODIUM CHLOR 0.9% PF (SALINE LOCK) 10ML VIAL/SYR IV SCH (14:00)
[2022-08-23] MEDS ORDERED: FINASTERIDE 5 MG TAB PO SCH (10:00)
[2022-08-23] MEDS ORDERED: ASPirin-EC 81 mg tab PO SCH (10:00)
[2022-08-23] MEDS ORDERED: PATIENTS OWN MEDICATION (Atorvastatin Calcium 1 TAB) PO SCH (10:00)
[2022-08-23] MEDS ORDERED: TAMSULOSIN HYDROCHLORIDE 0.4 MG CAP PO SCH (10:00)
[2022-08-23] MEDS ORDERED: PATIENTS OWN MEDICATION (Amlodipine Besylate 1 TAB) PO SCH (10:00)
== END 2022-08-22 14:28 | disposition left against medical advice (07) ==
LOC: ER 07:33 → TELE 11:01 → UNDOADMIN 11:01 → ER 14:28
DX: T82.41XA Breakdown (mechanical) of vascular dialysis catheter, initial encounter (principal); I12.0 Hypertensive chronic kidney disease with stage 5 chronic kidney disease or end stage renal disease; E11.22 Type 2 diabetes mellitus with diabetic chronic kidney disease; N18.6 End stage renal disease; Z99.2 Dependence on renal dialysis; Z95.1 Presence of aortocoronary bypass graft; Z79.82 Long term (current) use of aspirin; Z79.4 Long term (current) use of insulin; Z79.899 Other long term (current) drug therapy; Z20.822 Contact with and (suspected) exposure to COVID-19
CPT/HCPCS: 36415; 71045; 80053; 82962; 84484; 85025; 85610; 85730; 87426; 96372; 99284; J1815

== ENCOUNTER 2022-08-26 08:07 | Emergency (ER) | payer OTHER ==
[~2022-08-26] VITALS: Ht 177.8 cm; Wt 89.0 kg
[~2022-08-26 08:07] MED LIST changes: -LEVO500T31 PO
[2022-08-26] MEDS ORDERED: LORazepam 2MG/ML-1ML VIAL IV ONE (08:15)
[2022-08-26 08:19] VITALS: BP 182/91
[2022-08-26] MEDS ORDERED: cloNIDine HCL 0.1 MG TAB PO ONE (08:45)
[2022-08-26 09:10] LABS: Basophils # (auto) 0 10 ^3/uL (0-0.2); Basophils % (auto) 0.2 % (0.0-2.0); Eosinophils # (auto) 0.1 10 ^3/uL (0-0.8); Eosinophils % (auto) 1.3 % (0.0-7.0); Hematocrit 30.3 % (41.0-53.0); Hemoglobin 10.3 g/dL (13.5-17.5); Lymphocytes % (auto) 12.1 % (10.0-50.0); Mean Corpuscular Hemoglobin 32.1 pg (28.0-32.0); Mean Corpuscular Hgb Conc. 33.9 g/dL (32.0-36.0); Mean Corpuscular Volume 94.6 fL (80.0-100.0); Monocytes # (auto) 0.7 10 ^3/uL (0-1.3); Monocytes % (auto) 8.6 % (0.0-12.0); Neutrophils # (auto) 6.5 10 ^3/uL (1.6-8.6); Neutrophils % (auto) 77.8 % (37.0-80.0); Nucleated Red Blood Cells % 0.1 %; Red Blood Cells 3.21 10^6/uL (4.5-5.90); Red Cell Distribution Width 18.3 % (11.8-14.3); White Blood Cell 8.4 10^3/uL (4.4-10.8)
[2022-08-26 09:12] LABS: Albumin 4.1 g/dL (3.4-5.0); Calcium 8.6 mg/dL (8.5-10.1)
[2022-08-26 09:16] LABS: BUN/Creatinine Ratio 8.4; Bilirubin, Total 0.4 mg/dL (0.2-1.0); Total Protein 7.5 g/dL (6.4-8.2)
[2022-08-26 09:20] LABS: INR 1.03 (0.9-1.15); Partial Thromboplastin Time 28.4 sec (24.6-33.4)
[2022-08-26] MEDS ORDERED: glipiZIDE 5 MG TAB PO SCH (22:00)
[2022-08-26] MEDS ORDERED: PATIENTS OWN MEDICATION (Glipizide 10 MG) PO SCH (22:00)
[2022-08-26] MEDS ORDERED: ATORVASTATIN 20 MG TAB PO SCH (22:00)
[2022-08-27] MEDS ORDERED: amLODIPine BESYLATE 5 MG TAB PO SCH (10:00)
[2022-08-27] MEDS ORDERED: PATIENTS OWN MEDICATION (Atorvastatin Calcium 1 TAB) PO SCH (10:00)
[2022-08-27] MEDS ORDERED: FINASTERIDE 5 MG TAB PO SCH (10:00)
[2022-08-27] MEDS ORDERED: PATIENTS OWN MEDICATION (Amlodipine Besylate 1 TAB) PO SCH (10:00)
[2022-08-27] MEDS ORDERED: TAMSULOSIN HYDROCHLORIDE 0.4 MG CAP PO SCH (10:00)
== END 2022-08-26 12:33 | disposition left against medical advice (07) ==
LOC: ER 08:07
DX: I16.0 Hypertensive urgency (principal); I12.0 Hypertensive chronic kidney disease with stage 5 chronic kidney disease or end stage renal disease; E11.22 Type 2 diabetes mellitus with diabetic chronic kidney disease; N18.6 End stage renal disease; Z99.2 Dependence on renal dialysis; Z98.890 Other specified postprocedural states; Z79.899 Other long term (current) drug therapy; Z53.29 Procedure and treatment not carried out because of patient's decision for other reasons
CPT/HCPCS: 36415; 71045; 80053; 84484; 85025; 85610; 85730; 93005

== ENCOUNTER → 2022-09-08 | Outpatient (CLI) | payer OTHER ==
[2022-09-08 08:54] LABS: Basophils # (auto) 0 10 ^3/uL (0-0.2); Basophils % (auto) 0.3 % (0.0-2.0); Eosinophils # (auto) 0.1 10 ^3/uL (0-0.8); Hematocrit 27.7 % (41.0-53.0); Hemoglobin 9.2 g/dL (13.5-17.5); Lymphocytes % (auto) 12.2 % (10.0-50.0); Mean Corpuscular Hemoglobin 32.4 pg (28.0-32.0); Mean Corpuscular Hgb Conc. 33.2 g/dL (32.0-36.0); Mean Corpuscular Volume 97.4 fL (80.0-100.0); Monocytes # (auto) 0.9 10 ^3/uL (0-1.3); Monocytes % (auto) 10.2 % (0.0-12.0); Neutrophils # (auto) 6.4 10 ^3/uL (1.6-8.6); Neutrophils % (auto) 76.3 % (37.0-80.0); Nucleated Red Blood Cells % 0.1 %; Red Blood Cells 2.85 10^6/uL (4.5-5.90); White Blood Cell 8.4 10^3/uL (4.4-10.8)
[2022-09-08 09:14] LABS: Albumin 3.9 g/dL (3.4-5.0); Calcium 8.5 mg/dL (8.5-10.1)
[2022-09-08 09:19] LABS: BUN/Creatinine Ratio 7.9; Bilirubin, Total 0.5 mg/dL (0.2-1.0); Total Protein 7.7 g/dL (6.4-8.2)
[2022-09-08 09:22] LABS: Urine Bacteria NONE SEEN /hpf (None Seen); Urine Blood Negative /uL (Negative); Urine Hyaline Cast FEW /lpf (0 - 2); Urine Specific Gravity 1.011 (1.001-1.035); Urine WBC 6 /hpf (0 - 3)
[2022-09-08 09:39] LABS: Potassium 5.8 mmol/L (3.5-5.1)
== END | disposition home or self-care (01) ==
LOC: LAB 08:35
PROVIDERS: ATTEND Nurse Practitioner
DX: I10 Essential (primary) hypertension (principal); E78.5 Hyperlipidemia, unspecified; R73.9 Hyperglycemia, unspecified
CPT/HCPCS: 36415; 80053; 80061; 81001; 83036; 84443; 85025

== ENCOUNTER 2022-09-18 15:33 | Inpatient (IN) | payer OTHER ==
[~2022-09-18] VITALS: Ht 180.3 cm; Wt 84.0 kg
[2022-09-18 16:11] LABS: Basophils # (auto) 0 10 ^3/uL (0-0.2); Basophils % (auto) 0.2 % (0.0-2.0); Eosinophils # (auto) 0 10 ^3/uL (0-0.8); Eosinophils % (auto) 0.3 % (0.0-7.0); Hematocrit 26.5 % (41.0-53.0); Hemoglobin 9.1 g/dL (13.5-17.5); Lymphocytes # (auto) 0.6 10 ^3/uL (0.4-5.4); Lymphocytes % (auto) 6.3 % (10.0-50.0); Mean Corpuscular Hemoglobin 33.8 pg (28.0-32.0); Mean Corpuscular Hgb Conc. 34.4 g/dL (32.0-36.0); Mean Corpuscular Volume 98.2 fL (80.0-100.0); Monocytes # (auto) 0.8 10 ^3/uL (0-1.3); Monocytes % (auto) 8.6 % (0.0-12.0); Neutrophils # (auto) 7.9 10 ^3/uL (1.6-8.6); Neutrophils % (auto) 84.6 % (37.0-80.0); Nucleated Red Blood Cells % 0.2 %; Red Cell Distribution Width 17.6 % (11.8-14.3); White Blood Cell 9.3 10^3/uL (4.4-10.8)
[2022-09-18 16:28] LABS: INR 1.07 (0.9-1.15); Partial Thromboplastin Time 28.5 sec (24.6-33.4)
[2022-09-18 16:29] LABS: Albumin 3.9 g/dL (3.4-5.0); Potassium 4.4 mmol/L (3.5-5.1)
[2022-09-18 16:33] LABS: Bilirubin, Total 0.4 mg/dL (0.2-1.0); Total Protein 7.8 g/dL (6.4-8.2)
[2022-09-18] MEDS ORDERED: MORPHINE SULFATE INJ 2 MG/ml SYRG IV PRN (17:15)
[2022-09-18] MEDS ORDERED: DOCUSATE SOD 100 MG CAP PO PRN (17:15)
[2022-09-18] MEDS ORDERED: ONDANSETRON HCL 4 MG/2 ML VIAL IV PRN (17:15)
[2022-09-18] MEDS ORDERED: DEXTROSE (50%) 50ML SYRG IV PRN (17:30)
[2022-09-18] MEDS ORDERED: HEPARIN SODIUM (PORCINE) 5000 UNITS/ML 1ML VIAL SC SCH (22:00)
[2022-09-19] MEDS: InsuLIN REG 1unit/0.01ml Soln (100units/ml) SC SCH ×3 (00:39→11:30)
[2022-09-19] MEDS: ACCU-CHEK COMFORT CURVE STRIP VI SCH ×3 (00:39→12:32)
[2022-09-19 06:40] LABS: Potassium 4.5 mmol/L (3.5-5.1)
[2022-09-19 06:41] LABS: Basophils # (auto) 0 10 ^3/uL (0-0.2); Basophils % (auto) 0.3 % (0.0-2.0); Eosinophils # (auto) 0.1 10 ^3/uL (0-0.8); Lymphocytes % (auto) 11.5 % (10.0-50.0); Nucleated Red Blood Cells % 0.1 %
[2022-09-19 06:44] LABS: Eosinophils % (auto) 0.9 % (0.0-7.0); Hematocrit 24.4 % (41.0-53.0); Hemoglobin 8.2 g/dL (13.5-17.5); Lymphocytes # (auto) 0.9 10 ^3/uL (0.4-5.4); Mean Corpuscular Hemoglobin 33.5 pg (28.0-32.0); Mean Corpuscular Hgb Conc. 33.8 g/dL (32.0-36.0); Monocytes % (auto) 11.8 % (0.0-12.0); Neutrophils # (auto) 6.2 10 ^3/uL (1.6-8.6); Neutrophils % (auto) 75.5 % (37.0-80.0); Red Blood Cells 2.46 10^6/uL (4.5-5.90); Red Cell Distribution Width 17.9 % (11.8-14.3); White Blood Cell 8.2 10^3/uL (4.4-10.8)
[2022-09-19 06:47] LABS: Albumin 3.4 g/dL (3.4-5.0); BUN/Creatinine Ratio 6.6; Bilirubin, Total 0.5 mg/dL (0.2-1.0); Calcium 7.8 mg/dL (8.5-10.1); Total Protein 7.5 g/dL (6.4-8.2)
[2022-09-19 09:17] LABS: Urine Bacteria NONE SEEN /hpf (None Seen); Urine Blood Negative /uL (Negative); Urine WBC 6 /hpf (0 - 3)
[2022-09-19 10:00] VITALS: BP 145/74
[2022-09-19] MEDS ORDERED: MULTIPLE VITAMIN TAB PO SCH (10:00)
[2022-09-19] MEDS ORDERED: ATORVASTATIN 20 MG TAB PO SCH (10:00)
[2022-09-19] MEDS ORDERED: FINASTERIDE 5 MG TAB PO SCH (10:00)
[2022-09-19] MEDS ORDERED: TAMSULOSIN HYDROCHLORIDE 0.4 MG CAP PO SCH (10:00)
[2022-09-19] MEDS ORDERED: PANTOPRAZOLE 40 MG TAB PO SCH (10:00)
[2022-09-19] MEDS ORDERED: PATIENTS OWN MEDICATION (Amlodipine Besylate 1 TAB) PO SCH (10:00)
[2022-09-19] MEDS ORDERED: LIDOCAINE 2%HCL (LOCAL ANESTH.) INJ 20ML MDV ONE (14:11)
== END 2022-09-19 16:15 | disposition home or self-care (01) | DRG 673 ==
LOC: ER 15:33 → OVERFLOW 17:13
PROVIDERS: ADMIT Nurse Practitioner Family; ATTEND Internal Medicine
PROC: 5A1D70Z Performance of Urinary Filtration, Intermittent, Less than 6 Hours Per Day (ICD-10-PCS; 2022-09-18)
PROC: 0JH63XZ Insertion of Tunneled Vascular Access Device into Chest Subcutaneous Tissue and Fascia, Percutaneous Approach (ICD-10-PCS; principal; 2022-09-19)
PROC: 02H633Z Insertion of Infusion Device into Right Atrium, Percutaneous Approach (ICD-10-PCS; 2022-09-19)
PROC: B5181ZA Fluoroscopy of Superior Vena Cava using Low Osmolar Contrast, Guidance (ICD-10-PCS; 2022-09-19)
DX: T82.41XA Breakdown (mechanical) of vascular dialysis catheter, initial encounter (principal); N18.6 End stage renal disease; I12.0 Hypertensive chronic kidney disease with stage 5 chronic kidney disease or end stage renal disease; Z20.822 Contact with and (suspected) exposure to COVID-19; E11.22 Type 2 diabetes mellitus with diabetic chronic kidney disease; D63.8 Anemia in other chronic diseases classified elsewhere; N40.0 Benign prostatic hyperplasia without lower urinary tract symptoms; E78.5 Hyperlipidemia, unspecified; E11.65 Type 2 diabetes mellitus with hyperglycemia; I95.3 Hypotension of hemodialysis; Y71.2 Prosthetic and other implants, materials and accessory cardiovascular devices associated with adverse incidents; I25.10 Atherosclerotic heart disease of native coronary artery without angina pectoris; K44.9 Diaphragmatic hernia without obstruction or gangrene; K57.90 Diverticulosis of intestine, part unspecified, without perforation or abscess without bleeding; Z79.4 Long term (current) use of insulin; Y92.89 Other specified places as the place of occurrence of the external cause; Z95.1 Presence of aortocoronary bypass graft; Z83.3 Family history of diabetes mellitus; Z82.0 Family history of epilepsy and other diseases of the nervous system; Z99.2 Dependence on renal dialysis
CPT/HCPCS: 36415; 71045; 80053; 81001; 82962; 84100; 84484; 85025; 85610; 85730; 87426; 93005; 99152; 99153; G0378

== ENCOUNTER → 2022-12-02 | Outpatient (CLI) | payer OTHER ==
[~2022-12-02] MED LIST changes: -INSU70IN3 SC
[2022-12-02 12:14] LABS: Calcium 8.9 mg/dL (8.5-10.1); Potassium 4.9 mmol/L (3.5-5.1)
[2022-12-02 12:19] LABS: Albumin 3.5 g/dL (3.4-5.0); BUN/Creatinine Ratio 5.8 (10.0-20.0); Bilirubin, Total 0.3 mg/dL (0.2-1.0); Total Protein 7.7 g/dL (6.4-8.2)
== END | disposition home or self-care (01) ==
LOC: LAB 11:16
PROVIDERS: ATTEND Nurse Practitioner
DX: E78.5 Hyperlipidemia, unspecified (principal); R53.1 Weakness
CPT/HCPCS: 36415; 80053; 83036; 84443

== ENCOUNTER 2023-01-28 10:50 | Day surgery (SDC) | payer OTHER ==
[2023-01-27 11:24] LABS: Basophils # (auto) 0 10 ^3/uL (0-0.2); Basophils % (auto) 0.4 % (0.0-2.0); Eosinophils # (auto) 0.1 10 ^3/uL (0-0.8); Eosinophils % (auto) 0.9 % (0.0-7.0); Hematocrit 32.2 % (41.0-53.0); Hemoglobin 10.5 g/dL (13.5-17.5); Lymphocytes % (auto) 11.5 % (10.0-50.0); Mean Corpuscular Hemoglobin 30.4 pg (28.0-32.0); Mean Corpuscular Hgb Conc. 32.6 g/dL (32.0-36.0); Mean Corpuscular Volume 93.2 fL (80.0-100.0); Monocytes # (auto) 0.8 10 ^3/uL (0-1.3); Monocytes % (auto) 9.5 % (0.0-12.0); Neutrophils # (auto) 6.4 10 ^3/uL (1.6-8.6); Neutrophils % (auto) 77.7 % (37.0-80.0); Red Blood Cells 3.45 10^6/uL (4.5-5.90); Red Cell Distribution Width 18.2 % (11.8-14.3); White Blood Cell 8.3 10^3/uL (4.4-10.8)
[2023-01-27 11:39] LABS: INR 1.04 (0.9-1.15); Partial Thromboplastin Time 27.3 sec (24.6-33.4)
[2023-01-27 11:47] LABS: Albumin 3.7 g/dL (3.4-5.0); Calcium 9.5 mg/dL (8.5-10.1); Potassium 5.4 mmol/L (3.5-5.1)
[2023-01-27 11:49] LABS: BUN/Creatinine Ratio 6.8 (10.0-20.0)
[2023-01-27 11:53] LABS: Bilirubin, Total 0.3 mg/dL (0.2-1.0); Total Protein 7.9 g/dL (6.4-8.2)
[~2023-01-28] VITALS: Ht 179.1 cm; Wt 85.7 kg
[2023-01-28] VITALS (8 sets, daily range): BP systolic 132–144; BP diastolic 53–104
[~2023-01-28 10:50] MED LIST changes: -AMLO-496 PO; +AMLO1TAB23 PO; +GABA-1250 PO; -MULT-228 PO; +SEVE800T8 PO
[2023-01-28] MEDS ORDERED: LIDOCAINE 2%HCL (LOCAL ANESTH.) INJ 20ML MDV ONE ×2 (11:59→14:13)
[2023-01-28] MEDS ORDERED: ANGIOMAX 250 MG VIAL IV ONE (14:12)
[2023-01-28] MEDS ORDERED: VERAPAMIL 2.5MG/ML INJ 2ML VIAL IV ONE (14:12)
[2023-01-28] MEDS ORDERED: SODIUM CHL 0.9% 0 ML ONE (14:13)
[2023-01-28] MEDS ORDERED: MIDAZOLAM HCL 2MG/2ML 2ml VIAL (1mg/ml) ONE (14:13)
[2023-01-28] MEDS ORDERED: fentaNYL CITRATE 100 MCG/2 ML VL ONE (14:13)
[2023-01-28] MEDS ORDERED: IODIXANOL 320MG/ML 100ML BTL IV ONE ×2 (14:29→15:00)
[2023-01-28] MEDS ORDERED: HEPARIN SODIUM (PORCINE) 5000 UNITS/ML 1ML VIAL ONE (14:29)
[2023-01-28] MEDS ORDERED: IOHEXOL 350 MG/ML 500ML BOTTLE IJ ONE (14:57)
== END 2023-01-28 17:25 | disposition home or self-care (01) ==
LOC: CATH 10:50
PROVIDERS: ATTEND Internal Medicine
DX: I25.10 Atherosclerotic heart disease of native coronary artery without angina pectoris (principal); I10 Essential (primary) hypertension; F17.210 Nicotine dependence, cigarettes, uncomplicated; Z84.89 Family history of other specified conditions; Z83.3 Family history of diabetes mellitus; Z79.82 Long term (current) use of aspirin; Z79.899 Other long term (current) drug therapy; Z98.890 Other specified postprocedural states
CPT/HCPCS: 36415; 76937; 80053; 85025; 85610; 85730; 93458; C1725; C1769; C1887; C1894; J1644; J2250; J3010; Q9967; 99152; 99153

== ENCOUNTER → 2023-08-03 | Day surgery (SDC) | payer OTHER ==
[~2023-08-03] VITALS: Ht 177.8 cm; Wt 85.3 kg
[~2023-08-03] MED LIST changes: +ACCU-CHEK COMFORT CURVE STRIP VI ONE; +ASCO500T11 PO; +BUPIVACAINE HCL 0.25% P/F 10 ML VIAL ONE; +CALC-312 PO; +CHOL25CH3 PO; +CYAN-17 PO; +FERR65TA12 PO; +GLYCOPYRROLATE 0.2 MG/ML 1ML VIAL ONE; +HEPARIN SODIUM (PORCINE) 5000 UNITS/ML 1ML VIAL ONE; +HYDROmorphone HCL 2 MG/ML VL/or syr IV PRN; +LIDOCAINE 1% (LOCAL ANESTH.) PF 5ml SDV ONE; +MIDAZOLAM HCL 2MG/2ML 2ml VIAL (1mg/ml) ONE; +MULT1CHW79 PO; +ONDANSETRON HCL 4 MG/2 ML VIAL ONE; +PROPOFOL 10 MG/ML 20 ML IV ONE; +SACU1TAB PO; +ceFAZolin 2 GM/D5W100ml 100 ML IV ONE; +fentaNYL CITRATE 100 MCG/2 ML VL ONE
[2023-08-03 09:00] VITALS: PULSE 87; RESP 14
[2023-08-03 09:40] VITALS: BP 137/65; PULSE 77; RESP 17; O2SAT 93
== END | disposition home or self-care (01) ==
LOC: SUR 06:12
PROVIDERS: ATTEND Surgery Vascular Surgery
DX: I13.2 Hypertensive heart and chronic kidney disease with heart failure and with stage 5 chronic kidney disease, or end stage renal disease (principal); E11.22 Type 2 diabetes mellitus with diabetic chronic kidney disease; N18.6 End stage renal disease; J44.9 Chronic obstructive pulmonary disease, unspecified; Z79.899 Other long term (current) drug therapy; Z99.2 Dependence on renal dialysis; Z79.84 Long term (current) use of oral hypoglycemic drugs; Z98.890 Other specified postprocedural states
CPT/HCPCS: 36821; 82962; 86850; 86900; 86901; J1644; J2250; J2405; J2704; J3490; J7030

== ENCOUNTER 2023-12-02 12:25 | Inpatient (IN) | payer OTHER ==
[~2023-12-02] VITALS: Ht 179.1 cm; Wt 97.9 kg
[~2023-12-02 12:25] MED LIST changes: -ACCU-CHEK COMFORT CURVE STRIP VI ONE; -BUPIVACAINE HCL 0.25% P/F 10 ML VIAL ONE; -GLYCOPYRROLATE 0.2 MG/ML 1ML VIAL ONE; -HEPARIN SODIUM (PORCINE) 5000 UNITS/ML 1ML VIAL ONE; -HYDROmorphone HCL 2 MG/ML VL/or syr IV PRN; -LIDOCAINE 1% (LOCAL ANESTH.) PF 5ml SDV ONE; -MIDAZOLAM HCL 2MG/2ML 2ml VIAL (1mg/ml) ONE; -ONDANSETRON HCL 4 MG/2 ML VIAL ONE; -PROPOFOL 10 MG/ML 20 ML IV ONE; -ceFAZolin 2 GM/D5W100ml 100 ML IV ONE; -fentaNYL CITRATE 100 MCG/2 ML VL ONE
[2023-12-02] MEDS ORDERED: VANCOMYCIN PER PHARMACY 0 MG IV SCH (15:15)
[2023-12-02] MEDS ORDERED: DEXTROSE (50%) 50ML SYRG IV PRN (15:15)
[2023-12-02] MEDS ORDERED: ONDANSETRON HCL 4 MG/2 ML VIAL IV PRN (15:15)
[2023-12-02] MEDS ORDERED: MORPHINE SULFATE INJ 2 MG/ml SYRG IV PRN ×2 (15:15)
[2023-12-02] MEDS ORDERED: NITROGLYCERIN 0.4 MG SL TAB SL PRN (15:15)
[2023-12-02] MEDS: InsuLIN REG 1unit/0.01ml Soln (100units/ml) SC SCH ×2 (17:00→22:00)
[2023-12-02] MEDS: ACCU-CHEK COMFORT CURVE STRIP VI SCH (17:00)
[2023-12-02 18:31] VITALS: PULSE 80; RESP 21; O2SAT 97
[2023-12-02 20:00] VITALS: PULSE 86; PULSE 89; RESP 18; O2SAT 94
[2023-12-02] MEDS: VANCOMYCIN 1GM/200ML 200 ML IV ONE (20:51)
[2023-12-02 21:32] VITALS: BP 141/72; PULSE 89; RESP 18; TEMP 97.6; O2SAT 94
[2023-12-02] MEDS: HEPARIN SODIUM (PORCINE) 5000 UNITS/ML 1ML VIAL SC SCH (22:14)
[2023-12-02] MEDS: SACUBITRIL-VALSARTAN 24mg/26mg TAB PO SCH (22:14)
[2023-12-03] VITALS (7 sets, daily range): BP systolic 110–144; BP diastolic 49–74; PULSE 70–95; RESP 18–20; TEMP 98–99.5; O2SAT 92–97
[2023-12-03] MEDS: TAMSULOSIN HYDROCHLORIDE 0.4 MG CAP PO SCH (05:49)
[2023-12-03 07:18] LABS: Basophils # (auto) 0 10 ^3/uL (0-0.2); Basophils % (auto) 0.3 % (0.0-2.0); Eosinophils # (auto) 0 10 ^3/uL (0-0.8); Eosinophils % (auto) 0.4 % (0.0-7.0); Hematocrit 29.3 % (41.0-53.0); Hemoglobin 9.4 g/dL (13.5-17.5); Lymphocytes # (auto) 0.8 10 ^3/uL (0.4-5.4); Lymphocytes % (auto) 7.2 % (10.0-50.0); Mean Corpuscular Volume 93.8 fL (80.0-100.0); Monocytes # (auto) 0.8 10 ^3/uL (0-1.3); Monocytes % (auto) 7.3 % (0.0-12.0); Neutrophils # (auto) 9.4 10 ^3/uL (1.6-8.6); Neutrophils % (auto) 84.8 % (37.0-80.0); Red Blood Cells 3.13 10^6/uL (4.5-5.90); Red Cell Distribution Width 17.3 % (11.8-14.3); White Blood Cell 11.1 10^3/uL (4.4-10.8)
[2023-12-03 07:22] LABS: Alkaline Phosphatase 106 U/L (46-116); Anion Gap 14 (5-15); Aspartate Aminotransferase 11 U/L (13-40); BUN/Creatinine Ratio 7.5 (10.0-20.0); Bilirubin, Total 0.3 mg/dL (0.2-1.0); Blood Urea Nitrogen 68 mg/dL (9-23); Calcium 9.4 mg/dL (8.5-10.1); Carbon Dioxide 20 mmol/L (20-30); Chloride 100 mmol/L (98-107); Glucose 78 mg/dL (74-106); Sodium 134 mmol/L (136-145); Total Protein 6.4 g/dL (5.7-8.2)
[2023-12-03 07:24] LABS: Alanine Aminotransferase < 9 U/L (7-40)
[2023-12-03 07:27] LABS: Potassium 5.9 mmol/L (3.5-5.1)
[2023-12-03] MEDS ORDERED: SODIUM CHL 0.9% 1000 ML BAG XX ONE (09:30)
[2023-12-03] MEDS: ATORVASTATIN 20 MG TAB PO SCH (09:58)
[2023-12-03] MEDS: cefTRIAXone 2GM/50ML D5W 50 ML IV SCH (10:00)
[2023-12-03 13:37] LABS: % Iron Saturation 11.7 % (20-55)
[2023-12-03 13:52] LABS: Hepatitis B Surface Antigen Negative (Negative)
[2023-12-03 14:12] LABS: Hepatitis A Ab IgM Negative
[2023-12-03 14:13] LABS: Hepatitis B Core IgM Negative; Hepatitis C Antibody Negative (Negative)
[2023-12-03] MEDS: ACETAMINOPHEN 325 MG TAB PO PRN (16:59)
[2023-12-03] MEDS: EPOETIN ALFA-EPBX 10,000 UNIT/1ML VIAL SC ONE (21:52)
[2023-12-04] VITALS (7 sets, daily range): BP systolic 106–151; BP diastolic 57–69; PULSE 69–87; RESP 16–18; TEMP 98.2–100.5; O2SAT 92–94
[2023-12-04 06:25] LABS: Basophils # (auto) 0 10 ^3/uL (0-0.2); Basophils % (auto) 0.3 % (0.0-2.0); Eosinophils # (auto) 0 10 ^3/uL (0-0.8); Eosinophils % (auto) 0.5 % (0.0-7.0); Hematocrit 29.6 % (41.0-53.0); Hemoglobin 9.4 g/dL (13.5-17.5); Lymphocytes # (auto) 1.1 10 ^3/uL (0.4-5.4); Mean Corpuscular Hgb Conc. 31.9 g/dL (32.0-36.0); Monocytes # (auto) 1.1 10 ^3/uL (0-1.3); Monocytes % (auto) 12.5 % (0.0-12.0); Neutrophils # (auto) 6.4 10 ^3/uL (1.6-8.6); Neutrophils % (auto) 73.7 % (37.0-80.0); Nucleated Red Blood Cells % 0.1 %; Red Blood Cells 3.15 10^6/uL (4.5-5.90); Red Cell Distribution Width 17.1 % (11.8-14.3); White Blood Cell 8.7 10^3/uL (4.4-10.8)
[2023-12-04 06:36] LABS: Chloride 99 mmol/L (98-107); Sodium 135 mmol/L (136-145)
[2023-12-04 06:37] LABS: Anion Gap 11 (5-15); Carbon Dioxide 25 mmol/L (20-30)
[2023-12-04 06:38] LABS: Calcium 9.7 mg/dL (8.7-10.4)
[2023-12-04 06:39] LABS: INR 1.21 (0.9-1.15); Prothrombin Time 12.5 sec (9.3-11.8)
[2023-12-04 06:42] LABS: BUN/Creatinine Ratio 6.4 (10.0-20.0); Glucose 80 mg/dL (74-106)
[2023-12-04 06:43] LABS: Blood Urea Nitrogen 45 mg/dL (9-23)
[2023-12-05] VITALS (8 sets, daily range): BP systolic 122–145; BP diastolic 56–72; PULSE 70–86; RESP 17–20; TEMP 97.7–98.3; O2SAT 94–99
[2023-12-05 08:00] LABS: Urine Bacteria FEW /hpf (None Seen); Urine Blood Negative /uL (Negative); Urine Clarity Clear (Clear); Urine Color Light-Yellow (Yellow); Urine Protein, UAD 2+ (Negative); Urine Specific Gravity 1.009 (1.001-1.035); Urine Urobilinogen Normal (Negative); Urine WBC 1 /hpf (0 - 3)
[2023-12-06] VITALS (8 sets, daily range): BP systolic 120–163; BP diastolic 47–75; PULSE 54–81; RESP 14–20; TEMP 97.7–98.5; O2SAT 94–99
[2023-12-06] MEDS: amLODIPine BESYLATE 5 MG TAB PO PRN (09:05)
[2023-12-06 11:13] LABS: Basophils # (auto) 0 10 ^3/uL (0-0.2); Basophils % (auto) 0.5 % (0.0-2.0); Eosinophils # (auto) 0.3 10 ^3/uL (0-0.8); Eosinophils % (auto) 4.6 % (0.0-7.0); Hematocrit 31.7 % (41.0-53.0); Hemoglobin 10.3 g/dL (13.5-17.5); Lymphocytes # (auto) 0.8 10 ^3/uL (0.4-5.4); Lymphocytes % (auto) 14.1 % (10.0-50.0); Mean Corpuscular Hemoglobin 30.3 pg (28.0-32.0); Mean Corpuscular Hgb Conc. 32.5 g/dL (32.0-36.0); Mean Corpuscular Volume 93.3 fL (80.0-100.0); Monocytes # (auto) 0.5 10 ^3/uL (0-1.3); Monocytes % (auto) 9.4 % (0.0-12.0); Neutrophils # (auto) 3.9 10 ^3/uL (1.6-8.6); Neutrophils % (auto) 71.4 % (37.0-80.0); Red Cell Distribution Width 16.8 % (11.8-14.3); White Blood Cell 5.5 10^3/uL (4.4-10.8)
[2023-12-06 11:23] LABS: Chloride 96 mmol/L (98-107); Potassium 4.9 mmol/L (3.5-5.1); Sodium 135 mmol/L (136-145)
[2023-12-06 11:24] LABS: Anion Gap 12 (5-15); Calcium 9.5 mg/dL (8.5-10.1); Carbon Dioxide 27 mmol/L (20-30)
[2023-12-06 11:29] LABS: BUN/Creatinine Ratio 6.4 (10.0-20.0); Blood Urea Nitrogen 52 mg/dL (9-23); Glucose 124 mg/dL (74-106)
[2023-12-06] MEDS: ATORVASTATIN 20 MG TAB PO SCH (21:24)
[2023-12-07] VITALS (14 sets, daily range): BP systolic 115–148; BP diastolic 49–80; PULSE 71–86; RESP 12–20; TEMP 97.7–98.6; O2SAT 95–100
[2023-12-07 05:46] LABS: Calcium 9.5 mg/dL (8.7-10.4); Chloride 97 mmol/L (98-107); Potassium 4.9 mmol/L (3.5-5.1); Sodium 136 mmol/L (136-145)
[2023-12-07 05:47] LABS: Anion Gap 13 (5-15); Carbon Dioxide 26 mmol/L (20-30)
[2023-12-07 05:48] LABS: Basophils # (auto) 0 10 ^3/uL (0-0.2); Basophils % (auto) 0.8 % (0.0-2.0); Eosinophils # (auto) 0.3 10 ^3/uL (0-0.8); Eosinophils % (auto) 4.9 % (0.0-7.0); Hematocrit 30.4 % (41.0-53.0); Lymphocytes % (auto) 19.3 % (10.0-50.0); Mean Corpuscular Hemoglobin 30.6 pg (28.0-32.0); Mean Corpuscular Hgb Conc. 33.1 g/dL (32.0-36.0); Mean Corpuscular Volume 92.4 fL (80.0-100.0); Monocytes # (auto) 0.6 10 ^3/uL (0-1.3); Monocytes % (auto) 10.8 % (0.0-12.0); Neutrophils # (auto) 3.4 10 ^3/uL (1.6-8.6); Neutrophils % (auto) 64.2 % (37.0-80.0); Nucleated Red Blood Cells % 0.1 %; Red Blood Cells 3.29 10^6/uL (4.5-5.90); Red Cell Distribution Width 16.5 % (11.8-14.3); White Blood Cell 5.4 10^3/uL (4.4-10.8)
[2023-12-07 05:52] LABS: BUN/Creatinine Ratio 6.7 (10.0-20.0); Blood Urea Nitrogen 61 mg/dL (9-23); Glucose 82 mg/dL (74-106)
[2023-12-07] MEDS ORDERED: SODIUM CHL 0.9% 1000 ML BAG XX ONE (13:00)
[2023-12-07] MEDS: IODIXANOL 320MG/ML 100ML BTL IV ONE (13:37)
[2023-12-07] MEDS: LIDOCAINE 2%HCL (LOCAL ANESTH.) INJ 20ML MDV ONE (13:37)
[2023-12-07] MEDS: ANGIOMAX 250 MG VIAL IV ONE (14:12)
[2023-12-07] MEDS: SODIUM CHL 0.9% 0 ML ONE (14:13)
[2023-12-07] MEDS: fentaNYL CITRATE 100 MCG/2 ML VL ONE (14:13)
[2023-12-07] MEDS: MIDAZOLAM HCL 2MG/2ML 2ml VIAL (1mg/ml) ONE (14:13)
[2023-12-07] MEDS: VANCOMYCIN 1GM/200ML 200 ML IV ONE (16:00)
[2023-12-07] MEDS ORDERED: EPOETIN ALFA-EPBX 10,000 UNIT/1ML VIAL SC ONE (21:00)
[2023-12-08 01:12] VITALS: BP 135/68; PULSE 76; RESP 14; TEMP 98.1; O2SAT 100
[2023-12-08 05:00] VITALS: BP 118/61; PULSE 79; RESP 16; TEMP 98.4; O2SAT 96
[2023-12-08 06:41] LABS: Anion Gap 16 (5-15); Carbon Dioxide 21 mmol/L (20-30); Chloride 97 mmol/L (98-107); Sodium 134 mmol/L (136-145)
[2023-12-08 06:43] LABS: Calcium 9.5 mg/dL (8.5-10.1)
[2023-12-08 06:47] LABS: BUN/Creatinine Ratio 5.6 (10.0-20.0); Blood Urea Nitrogen 57 mg/dL (9-23); Glucose 67 mg/dL (74-106)
[2023-12-08 06:48] LABS: Potassium 5.7 mmol/L (3.5-5.1)
[2023-12-08 07:00] LABS: Basophils # (auto) 0 10 ^3/uL (0-0.2); Basophils % (auto) 0.7 % (0.0-2.0); Eosinophils # (auto) 0.1 10 ^3/uL (0-0.8); Eosinophils % (auto) 2.7 % (0.0-7.0); Hemoglobin 10.9 g/dL (13.5-17.5); Lymphocytes # (auto) 1.1 10 ^3/uL (0.4-5.4); Lymphocytes % (auto) 21.7 % (10.0-50.0); Mean Corpuscular Hemoglobin 29.9 pg (28.0-32.0); Mean Corpuscular Hgb Conc. 32.1 g/dL (32.0-36.0); Mean Corpuscular Volume 93.1 fL (80.0-100.0); Monocytes # (auto) 0.5 10 ^3/uL (0-1.3); Monocytes % (auto) 10.2 % (0.0-12.0); Neutrophils # (auto) 3.2 10 ^3/uL (1.6-8.6); Neutrophils % (auto) 64.7 % (37.0-80.0); Nucleated Red Blood Cells % 0.1 %; Red Blood Cells 3.65 10^6/uL (4.5-5.90); Red Cell Distribution Width 16.8 % (11.8-14.3)
[2023-12-08 08:00] VITALS: PULSE 72; PULSE 79
[2023-12-08 09:00] VITALS: BP 151/73; PULSE 67; RESP 17; TEMP 97.9; O2SAT 100
[2023-12-08 13:00] VITALS: BP 150/80; PULSE 79; RESP 18; TEMP 97.9; O2SAT 98
[2023-12-08] MEDS ORDERED: VANCOMYCIN 1GM/200ML 200 ML IV ONE (14:00)
[2023-12-08] MEDS: VANCOMYCIN 1GM/200ML 200 ML IV ONE (18:06)
[2023-12-08 19:17] VITALS: BP 142/69; PULSE 78; RESP 20; TEMP 98.6
[2023-12-08] MEDS ORDERED: EPOETIN ALFA-EPBX 10,000 UNIT/1ML VIAL SC ONE (21:00)
== END 2023-12-08 19:00 | disposition home health service (06) | DRG 579 ==
LOC: TELE-WESTW 18:15
PROVIDERS: ADMIT Internal Medicine; ATTEND Internal Medicine
PROC: 5A1D70Z Performance of Urinary Filtration, Intermittent, Less than 6 Hours Per Day (ICD-10-PCS; 2023-12-03)
PROC: 0JDR0ZZ Extraction of Left Foot Subcutaneous Tissue and Fascia, Open Approach (ICD-10-PCS; 2023-12-03)
PROC: 5A1D70Z Performance of Urinary Filtration, Intermittent, Less than 6 Hours Per Day (ICD-10-PCS; 2023-12-04)
PROC: 05HD33Z Insertion of Infusion Device into Right Cephalic Vein, Percutaneous Approach (ICD-10-PCS; 2023-12-04)
PROC: B54MZZA Ultrasonography of Right Upper Extremity Veins, Guidance (ICD-10-PCS; 2023-12-04)
PROC: B41FYZZ Fluoroscopy of Right Lower Extremity Arteries using Other Contrast (ICD-10-PCS; principal; 2023-12-07)
PROC: 5A1D70Z Performance of Urinary Filtration, Intermittent, Less than 6 Hours Per Day (ICD-10-PCS; 2023-12-08)
DX: L97.529 Non-pressure chronic ulcer of other part of left foot with unspecified severity (principal); N18.6 End stage renal disease; I13.2 Hypertensive heart and chronic kidney disease with heart failure and with stage 5 chronic kidney disease, or end stage renal disease; L03.116 Cellulitis of left lower limb; I42.9 Cardiomyopathy, unspecified; T25.022A Burn of unspecified degree of left foot, initial encounter; E11.22 Type 2 diabetes mellitus with diabetic chronic kidney disease; Z99.2 Dependence on renal dialysis; E11.621 Type 2 diabetes mellitus with foot ulcer; L97.519 Non-pressure chronic ulcer of other part of right foot with unspecified severity; D63.1 Anemia in chronic kidney disease; E87.5 Hyperkalemia; I50.9 Heart failure, unspecified; E11.51 Type 2 diabetes mellitus with diabetic peripheral angiopathy without gangrene; L03.031 Cellulitis of right toe; N40.0 Benign prostatic hyperplasia without lower urinary tract symptoms; E78.5 Hyperlipidemia, unspecified; I25.10 Atherosclerotic heart disease of native coronary artery without angina pectoris; L03.032 Cellulitis of left toe; T25.021A Burn of unspecified degree of right foot, initial encounter; Z95.1 Presence of aortocoronary bypass graft; Z95.0 Presence of cardiac pacemaker; Z83.3 Family history of diabetes mellitus; Z82.0 Family history of epilepsy and other diseases of the nervous system; Z87.891 Personal history of nicotine dependence; X08.8XXA Exposure to other specified smoke, fire and flames, initial encounter; Y93.89 Activity, other specified; Y92.89 Other specified places as the place of occurrence of the external cause; Y99.8 Other external cause status; Z79.4 Long term (current) use of insulin
CPT/HCPCS: 36014; 36415; 71045; 73718; 80048; 80053; 80074; 80202; 81001; 82306; 82728; 82962; 83036; 83540; 83550; 83970; 84100; 85025; 85610; 86850; 86900; 86901; 87077; 87081; 87186; 87205; 90935; 93005; 93926; 97110; 97116; 97163; 97530; 99152; C1769; G0378; J1642; J1815; J2250; Q9967

== ENCOUNTER 2023-12-14 17:23 | Inpatient (IN) | payer OTHER ==
[~2023-12-14] VITALS: Ht 177.8 cm; Wt 80.2 kg
[2023-12-14 19:39] LABS: Basophils # (auto) 0 10 ^3/uL (0-0.2); Basophils % (auto) 0.3 % (0.0-2.0); Eosinophils # (auto) 0.1 10 ^3/uL (0-0.8); Eosinophils % (auto) 0.9 % (0.0-7.0); Hematocrit 32.9 % (41.0-53.0); Hemoglobin 10.7 g/dL (13.5-17.5); Lymphocytes # (auto) 1.1 10 ^3/uL (0.4-5.4); Lymphocytes % (auto) 14.3 % (10.0-50.0); Mean Corpuscular Hemoglobin 30.2 pg (28.0-32.0); Mean Corpuscular Hgb Conc. 32.6 g/dL (32.0-36.0); Mean Corpuscular Volume 92.5 fL (80.0-100.0); Monocytes # (auto) 0.6 10 ^3/uL (0-1.3); Monocytes % (auto) 8.2 % (0.0-12.0); Neutrophils # (auto) 5.7 10 ^3/uL (1.6-8.6); Neutrophils % (auto) 76.3 % (37.0-80.0); Red Blood Cells 3.55 10^6/uL (4.5-5.90); Red Cell Distribution Width 16.9 % (11.8-14.3); White Blood Cell 7.4 10^3/uL (4.4-10.8)
[2023-12-14 19:49] LABS: Chloride 98 mmol/L (98-107); Potassium 4.1 mmol/L (3.5-5.1); Sodium 136 mmol/L (136-145)
[2023-12-14 19:50] LABS: Anion Gap 11 (5-15); Carbon Dioxide 27 mmol/L (20-30)
[2023-12-14 19:51] LABS: Calcium 9.5 mg/dL (8.5-10.1)
[2023-12-14 19:55] LABS: Glucose 110 mg/dL (74-106)
[2023-12-14 19:56] LABS: BUN/Creatinine Ratio 4.8 (10.0-20.0); Blood Urea Nitrogen 30 mg/dL (9-23)
[2023-12-14] MEDS ORDERED: ONDANSETRON HCL 4 MG/2 ML VIAL IV PRN (21:30)
[2023-12-14] MEDS ORDERED: NITROGLYCERIN 0.4 MG SL TAB SL PRN (21:30)
[2023-12-14] MEDS ORDERED: DOCUSATE SOD 100 MG CAP PO PRN (21:30)
[2023-12-14] MEDS ORDERED: MORPHINE SULFATE INJ 2 MG/ml SYRG IV PRN ×2 (21:30)
[2023-12-14] MEDS ORDERED: ACETAMINOPHEN 325 MG TAB PO PRN (21:30)
[2023-12-15] VITALS (8 sets, daily range): BP systolic 128–148; BP diastolic 58–77; PULSE 74–94; RESP 16–20; TEMP 97.6–98; O2SAT 95–100
[2023-12-15] MEDS: ceFAZolin 1GM/50ML 50 ML IV SCH (00:59)
[2023-12-15 06:08] LABS: Basophils # (auto) 0 10 ^3/uL (0-0.2); Basophils % (auto) 0.5 % (0.0-2.0); Eosinophils # (auto) 0.1 10 ^3/uL (0-0.8); Eosinophils % (auto) 1.2 % (0.0-7.0); Hematocrit 34.9 % (41.0-53.0); Hemoglobin 11.2 g/dL (13.5-17.5); Lymphocytes # (auto) 1.8 10 ^3/uL (0.4-5.4); Lymphocytes % (auto) 20.5 % (10.0-50.0); Mean Corpuscular Hemoglobin 29.9 pg (28.0-32.0); Mean Corpuscular Hgb Conc. 32.2 g/dL (32.0-36.0); Monocytes # (auto) 0.9 10 ^3/uL (0-1.3); Monocytes % (auto) 10.3 % (0.0-12.0); Neutrophils # (auto) 5.8 10 ^3/uL (1.6-8.6); Neutrophils % (auto) 67.5 % (37.0-80.0); Nucleated Red Blood Cells % 0.1 %; Red Blood Cells 3.75 10^6/uL (4.5-5.90); Red Cell Distribution Width 17.4 % (11.8-14.3); White Blood Cell 8.6 10^3/uL (4.4-10.8)
[2023-12-15 06:19] LABS: Chloride 97 mmol/L (98-107); Sodium 135 mmol/L (136-145)
[2023-12-15 06:20] LABS: Anion Gap 12 (5-15); Calcium 10.3 mg/dL (8.7-10.4); Carbon Dioxide 26 mmol/L (20-30)
[2023-12-15 06:25] LABS: BUN/Creatinine Ratio 4.6 (10.0-20.0); Blood Urea Nitrogen 33 mg/dL (9-23); Glucose 74 mg/dL (74-106)
[2023-12-15] MEDS ORDERED: DEXTROSE (50%) 50ML SYRG IV PRN (07:15)
[2023-12-15 09:17] LABS: Platelet Estimate Adequate
[2023-12-15] MEDS: InsuLIN REG 1unit/0.01ml Soln (100units/ml) SC SCH (11:30)
[2023-12-15] MEDS: ACCU-CHEK COMFORT CURVE STRIP VI SCH (11:37)
[2023-12-15] MEDS: DAKINS QUARTER STR 0.125% (NaHypochlorite) 473 ML TOPICAL SOL TOP SCH (23:10)
[2023-12-16] VITALS (8 sets, daily range): BP systolic 129–155; BP diastolic 58–78; PULSE 71–79; RESP 16–20; TEMP 97.2–97.9; O2SAT 98–100
[2023-12-16 06:01] LABS: Basophils # (auto) 0 10 ^3/uL (0-0.2); Basophils % (auto) 0.7 % (0.0-2.0); Eosinophils # (auto) 0.1 10 ^3/uL (0-0.8); Eosinophils % (auto) 1.6 % (0.0-7.0); Hemoglobin 10.5 g/dL (13.5-17.5); Lymphocytes # (auto) 1.2 10 ^3/uL (0.4-5.4); Lymphocytes % (auto) 19.8 % (10.0-50.0); Mean Corpuscular Hemoglobin 29.5 pg (28.0-32.0); Mean Corpuscular Hgb Conc. 31.9 g/dL (32.0-36.0); Mean Corpuscular Volume 92.3 fL (80.0-100.0); Monocytes # (auto) 0.6 10 ^3/uL (0-1.3); Monocytes % (auto) 9.5 % (0.0-12.0); Neutrophils # (auto) 4.1 10 ^3/uL (1.6-8.6); Neutrophils % (auto) 68.4 % (37.0-80.0); Nucleated Red Blood Cells % 0.2 %; Red Blood Cells 3.58 10^6/uL (4.5-5.90); Red Cell Distribution Width 17.2 % (11.8-14.3)
[2023-12-16 06:10] LABS: Anion Gap 10 (5-15); Carbon Dioxide 26 mmol/L (20-30); Chloride 97 mmol/L (98-107); Potassium 4.9 mmol/L (3.5-5.1); Sodium 133 mmol/L (136-145)
[2023-12-16 06:12] LABS: Calcium 9.7 mg/dL (8.5-10.1)
[2023-12-16 06:13] LABS: INR 1.14 (0.9-1.15); Partial Thromboplastin Time 32.7 SEC (24.5-34.5); Prothrombin Time 11.9 sec (9.3-11.8)
[2023-12-16 06:17] LABS: BUN/Creatinine Ratio 5.2 (10.0-20.0)
[2023-12-16 06:21] LABS: Glucose 61 mg/dL (74-106)
[2023-12-16 06:30] LABS: Blood Urea Nitrogen 45 mg/dL (9-23)
[2023-12-16] MEDS ORDERED: SODIUM CHL 0.9% 1000 ML BAG XX ONE (07:00)
[2023-12-16 08:25] LABS: Urine Bacteria FEW /hpf (None Seen); Urine Blood Negative /uL (Negative); Urine Clarity Turbid (Clear); Urine Color Light-Yellow (Yellow); Urine Protein, UAD 2+ (Negative); Urine Specific Gravity 1.009 (1.001-1.035); Urine Urobilinogen Normal (Negative); Urine WBC 2 /hpf (0 - 3)
[2023-12-16] MEDS: DAKINS HALF STR 0.25% (NaHypochlorite) 473 ML TOPICAL SOL TOP ONE (11:30)
[2023-12-17] VITALS (8 sets, daily range): BP systolic 107–147; BP diastolic 49–85; PULSE 69–80; RESP 16–18; TEMP 97.8–98.3; O2SAT 95–99
[2023-12-17 04:59] LABS: Chloride 97 mmol/L (98-107); Potassium 4.6 mmol/L (3.5-5.1); Sodium 136 mmol/L (136-145)
[2023-12-17 05:00] LABS: Anion Gap 10 (5-15); Carbon Dioxide 29 mmol/L (20-30)
[2023-12-17 05:01] LABS: Calcium 10.1 mg/dL (8.5-10.1)
[2023-12-17 05:03] LABS: Basophils # (auto) 0 10 ^3/uL (0-0.2); Basophils % (auto) 0.7 % (0.0-2.0); Eosinophils # (auto) 0.1 10 ^3/uL (0-0.8); Eosinophils % (auto) 1.1 % (0.0-7.0); Hematocrit 37.1 % (41.0-53.0); Lymphocytes # (auto) 1.2 10 ^3/uL (0.4-5.4); Lymphocytes % (auto) 20.2 % (10.0-50.0); Mean Corpuscular Hemoglobin 29.7 pg (28.0-32.0); Mean Corpuscular Hgb Conc. 32.2 g/dL (32.0-36.0); Monocytes # (auto) 0.8 10 ^3/uL (0-1.3); Neutrophils # (auto) 3.9 10 ^3/uL (1.6-8.6); Nucleated Red Blood Cells % 0.1 %; Red Blood Cells 4.03 10^6/uL (4.5-5.90); Red Cell Distribution Width 17.6 % (11.8-14.3); White Blood Cell 5.9 10^3/uL (4.4-10.8)
[2023-12-17 05:05] LABS: BUN/Creatinine Ratio 4.6 (10.0-20.0); Glucose 66 mg/dL (74-106)
[2023-12-17 05:12] LABS: Blood Urea Nitrogen 30 mg/dL (9-23)
[2023-12-17 08:47] LABS: Hepatitis B Surface Antigen Negative (Negative)
[2023-12-17 09:08] LABS: Hepatitis A Ab IgM Negative; Hepatitis B Core IgM Negative
[2023-12-17 09:09] LABS: Hepatitis C Antibody Negative (Negative)
[2023-12-17] MEDS: HYDROcodone-ACET 5/325MG TAB PO PRN (11:05)
[2023-12-18] VITALS (8 sets, daily range): BP systolic 128–146; BP diastolic 59–70; PULSE 69–80; RESP 16–21; TEMP 36.6; O2SAT 92–100
[2023-12-18] MEDS ORDERED: ceFAZolin 2 GM/D5W50ml 50 ML IV ONE (06:59)
[2023-12-18 07:18] LABS: Chloride 96 mmol/L (98-107); Potassium 4.9 mmol/L (3.5-5.1); Sodium 134 mmol/L (136-145)
[2023-12-18 07:19] LABS: Anion Gap 12 (5-15); Basophils # (auto) 0 10 ^3/uL (0-0.2); Basophils % (auto) 0.7 % (0.0-2.0); Carbon Dioxide 26 mmol/L (20-30); Eosinophils # (auto) 0.1 10 ^3/uL (0-0.8); Eosinophils % (auto) 1.4 % (0.0-7.0); Hematocrit 33.9 % (41.0-53.0); Hemoglobin 11.2 g/dL (13.5-17.5); Lymphocytes # (auto) 1.4 10 ^3/uL (0.4-5.4); Lymphocytes % (auto) 21.6 % (10.0-50.0); Mean Corpuscular Hemoglobin 30.1 pg (28.0-32.0); Mean Corpuscular Hgb Conc. 32.9 g/dL (32.0-36.0); Mean Corpuscular Volume 91.5 fL (80.0-100.0); Monocytes # (auto) 0.9 10 ^3/uL (0-1.3); Monocytes % (auto) 13.4 % (0.0-12.0); Neutrophils % (auto) 62.9 % (37.0-80.0); Nucleated Red Blood Cells % 0.1 %; Red Cell Distribution Width 17.2 % (11.8-14.3); White Blood Cell 6.3 10^3/uL (4.4-10.8)
[2023-12-18 07:24] LABS: BUN/Creatinine Ratio 5.2 (10.0-20.0); Blood Urea Nitrogen 44 mg/dL (9-23); Glucose 66 mg/dL (74-106)
[2023-12-18] MEDS ORDERED: MIDAZOLAM HCL 2MG/2ML 2ml VIAL (1mg/ml) ONE (07:29)
[2023-12-18] MEDS ORDERED: KETAMINE 50mg/ML 1ml syringe ONE (07:29)
[2023-12-18] MEDS ORDERED: fentaNYL CITRATE 100 MCG/2 ML VL ONE (07:29)
[2023-12-18] MEDS: LIDOCAINE HCL (LOCAL ANESTH.) 0.5 % 50ML MDV IJ ONE (07:44)
[2023-12-18] MEDS: BUPIVACAINE 0.5% P/F INJ 10 ML VIAL ONE (07:44)
[2023-12-18] MEDS ORDERED: ONDANSETRON HCL 4 MG/2 ML VIAL ONE (08:10)
[2023-12-18] MEDS ORDERED: PROPOFOL 10 MG/ML 20 ML IV ONE (08:10)
[2023-12-18] MEDS ORDERED: ONDANSETRON HCL 4 MG/2 ML VIAL IV ONE (08:30)
[2023-12-18] MEDS ORDERED: SODIUM CHL 0.9% 1000 ML BAG XX ONE (13:45)
== END 2023-12-18 20:02 | disposition home or self-care (01) | DRG 623 ==
LOC: ER 17:23 → TELE 21:42 → TELE-WESTW 12-15 05:20
PROVIDERS: ADMIT Nurse Practitioner Family; ATTEND Internal Medicine
PROC: 5A1D70Z Performance of Urinary Filtration, Intermittent, Less than 6 Hours Per Day (ICD-10-PCS; principal; 2023-12-16)
PROC: 0JBR0ZZ Excision of Left Foot Subcutaneous Tissue and Fascia, Open Approach (ICD-10-PCS; 2023-12-18)
PROC: 5A1D70Z Performance of Urinary Filtration, Intermittent, Less than 6 Hours Per Day (ICD-10-PCS; 2023-12-18)
DX: E11.621 Type 2 diabetes mellitus with foot ulcer (principal); I13.2 Hypertensive heart and chronic kidney disease with heart failure and with stage 5 chronic kidney disease, or end stage renal disease; M86.672 Other chronic osteomyelitis, left ankle and foot; T25.022A Burn of unspecified degree of left foot, initial encounter; N18.6 End stage renal disease; L03.032 Cellulitis of left toe; E11.69 Type 2 diabetes mellitus with other specified complication; L03.031 Cellulitis of right toe; E11.51 Type 2 diabetes mellitus with diabetic peripheral angiopathy without gangrene; I50.9 Heart failure, unspecified; E11.22 Type 2 diabetes mellitus with diabetic chronic kidney disease; J44.9 Chronic obstructive pulmonary disease, unspecified; L97.529 Non-pressure chronic ulcer of other part of left foot with unspecified severity; N40.0 Benign prostatic hyperplasia without lower urinary tract symptoms; Z99.2 Dependence on renal dialysis; Z95.1 Presence of aortocoronary bypass graft; Z95.0 Presence of cardiac pacemaker; Z89.422 Acquired absence of other left toe(s); Z82.0 Family history of epilepsy and other diseases of the nervous system; Z83.3 Family history of diabetes mellitus; Z87.891 Personal history of nicotine dependence
CPT/HCPCS: 36415; 71045; 73700; 80048; 80074; 81001; 82962; 85025; 85610; 85730; 87040; 87070; 87075; 87077; 87081; 87186; 87205; 90935; G0378; J1642; J2250; J2405; J2704; J3490

== ENCOUNTER 2024-02-17 20:03 | Inpatient (IN) | payer OTHER ==
[~2024-02-17] VITALS: Ht 177.8 cm; Wt 77.4 kg
[2024-02-18] VITALS (9 sets, daily range): BP systolic 129–167; BP diastolic 55–89; PULSE 67–84; RESP 16–20; TEMP 97.4–98.4; O2SAT 97–100
[2024-02-18] MEDS ORDERED: NITROGLYCERIN 0.4 MG SL TAB SL PRN
[2024-02-18] MEDS ORDERED: HYDROcodone-ACET 5/325MG TAB PO PRN
[2024-02-18] MEDS ORDERED: ONDANSETRON HCL 4 MG/2 ML VIAL IV PRN
[2024-02-18] MEDS ORDERED: ACETAMINOPHEN 325 MG TAB PO PRN
[2024-02-18] MEDS ORDERED: MORPHINE SULFATE INJ 2 MG/ml SYRG IV PRN ×2
[2024-02-18] MEDS ORDERED: DEXTROSE (50%) 50ML SYRG IV PRN ×2 (02:15→11:15)
[2024-02-18] MEDS: InsuLIN REG 1unit/0.01ml Soln (100units/ml) SC SCH ×2 (06:34→11:30)
[2024-02-18] MEDS: ACCU-CHEK COMFORT CURVE STRIP VI SCH ×2 (06:34→11:44)
[2024-02-18 06:45] LABS: Basophils # (auto) 0 10 ^3/uL (0-0.2); Basophils % (auto) 0.3 % (0.0-2.0); Eosinophils # (auto) 0.1 10 ^3/uL (0-0.8); Hematocrit 30.8 % (41.0-53.0); Hemoglobin 9.9 g/dL (13.5-17.5); Lymphocytes # (auto) 1.1 10 ^3/uL (0.4-5.4); Lymphocytes % (auto) 19.6 % (10.0-50.0); Mean Corpuscular Hemoglobin 30.5 pg (28.0-32.0); Mean Corpuscular Hgb Conc. 32.2 g/dL (32.0-36.0); Mean Corpuscular Volume 94.6 fL (80.0-100.0); Monocytes # (auto) 0.5 10 ^3/uL (0-1.3); Monocytes % (auto) 9.8 % (0.0-12.0); Neutrophils # (auto) 3.7 10 ^3/uL (1.6-8.6); Neutrophils % (auto) 69.3 % (37.0-80.0); Nucleated Red Blood Cells % 0.1 %; Red Blood Cells 3.26 10^6/uL (4.5-5.90); Red Cell Distribution Width 16.9 % (11.8-14.3); White Blood Cell 5.4 10^3/uL (4.4-10.8)
[2024-02-18 06:48] LABS: Calcium 10.4 mg/dL (8.7-10.4); Chloride 96 mmol/L (98-107); Potassium 5.4 mmol/L (3.5-5.1); Sodium 128 mmol/L (136-145)
[2024-02-18 06:49] LABS: Anion Gap 19 (5-15); Carbon Dioxide 13 mmol/L (20-30)
[2024-02-18 06:54] LABS: BUN/Creatinine Ratio 5.7 (10.0-20.0); Glucose 75 mg/dL (74-106)
[2024-02-18 07:05] LABS: Blood Urea Nitrogen 89 mg/dL (9-23)
[2024-02-18 09:11] LABS: Hepatitis B Surface Antigen Negative (Negative)
[2024-02-18] MEDS: hydrALAZINE HCL 20 MG/ML VL IV PRN (09:20)
[2024-02-18 09:33] LABS: Hepatitis C Antibody Negative (Negative)
[2024-02-18] MEDS: HEPARIN SODIUM (PORCINE) 5000 UNITS/ML 1ML VIAL SC SCH (09:34)
[2024-02-18 10:49] LABS: INR 1.08 (0.9-1.15); Partial Thromboplastin Time 28.4 SEC (24.5-34.5); Prothrombin Time 11.4 sec (9.3-11.8)
[2024-02-18] MEDS ORDERED: SODIUM CHL 0.9% 1000 ML BAG XX ONE (11:15)
[2024-02-18] MEDS: SEVELAMER 800 MG TAB PO SCH (18:00)
[2024-02-18] MEDS: EPOETIN ALFA-EPBX 10,000 UNIT/1ML VIAL SC ONE (21:00)
[2024-02-18] MEDS: ATORVASTATIN 20 MG TAB PO SCH (22:04)
[2024-02-18] MEDS: GABAPENTIN 300 MG CAP PO SCH (22:04)
[2024-02-19] VITALS (10 sets, daily range): BP systolic 141–164; BP diastolic 65–86; PULSE 76–84; RESP 12–20; TEMP 96.6–97.9; O2SAT 92–100
[2024-02-19] MEDS: FINASTERIDE 5 MG TAB PO SCH (06:12)
[2024-02-19] MEDS: TAMSULOSIN HYDROCHLORIDE 0.4 MG CAP PO SCH (06:13)
[2024-02-19] MEDS: amLODIPine BESYLATE 5 MG TAB PO SCH (06:14)
[2024-02-19 10:21] LABS: Basophils # (auto) 0 10 ^3/uL (0-0.2); Basophils % (auto) 0.2 % (0.0-2.0); Eosinophils # (auto) 0 10 ^3/uL (0-0.8); Eosinophils % (auto) 0.6 % (0.0-7.0); Hematocrit 32.1 % (41.0-53.0); Hemoglobin 10.4 g/dL (13.5-17.5); Lymphocytes % (auto) 18.1 % (10.0-50.0); Mean Corpuscular Hgb Conc. 32.5 g/dL (32.0-36.0); Mean Corpuscular Volume 92.3 fL (80.0-100.0); Monocytes # (auto) 0.4 10 ^3/uL (0-1.3); Monocytes % (auto) 7.5 % (0.0-12.0); Neutrophils # (auto) 4.2 10 ^3/uL (1.6-8.6); Neutrophils % (auto) 73.6 % (37.0-80.0); Red Blood Cells 3.48 10^6/uL (4.5-5.90); Red Cell Distribution Width 16.8 % (11.8-14.3); White Blood Cell 5.7 10^3/uL (4.4-10.8)
[2024-02-19 10:27] LABS: Chloride 97 mmol/L (98-107); Sodium 129 mmol/L (136-145)
[2024-02-19 10:28] LABS: Anion Gap 17 (5-15); Carbon Dioxide 15 mmol/L (20-30)
[2024-02-19 10:29] LABS: Calcium 10.4 mg/dL (8.5-10.1)
[2024-02-19 10:33] LABS: BUN/Creatinine Ratio 7.2 (10.0-20.0); Glucose 113 mg/dL (74-106)
[2024-02-19 10:58] LABS: Blood Urea Nitrogen 119 mg/dL (9-23); Potassium 5.6 mmol/L (3.5-5.1)
[2024-02-19] MEDS: SEVELAMER 800 MG TAB PO SCH (12:00)
[2024-02-19] MEDS ORDERED: MIDAZOLAM HCL 2MG/2ML 2ml VIAL (1mg/ml) ONE (15:11)
[2024-02-19] MEDS ORDERED: fentaNYL CITRATE 100 MCG/2 ML VL ONE (15:11)
[2024-02-19] MEDS ORDERED: LIDOCAINE 2%HCL (LOCAL ANESTH.) INJ 20ML MDV ONE ×2 (15:12→15:17)
[2024-02-19] MEDS ORDERED: IODIXANOL 320MG/ML 100ML BTL IV ONE (15:17)
[2024-02-19] MEDS ORDERED: CATHFLO ACTIVASE (ALTEPLASE) 2 MG VIAL ONE (15:45)
[2024-02-19] MEDS ORDERED: HEPARIN SODIUM (PORCINE) 5000 UNITS/ML 1ML VIAL ONE (16:32)
[2024-02-19] MEDS: SODIUM ZIRCONIUM CYCL 10 GM PAK PO SCH (18:45)
[2024-02-19] MEDS: SODIUM BICARB 8.4% 50Meq/50ml SYR Vial IV ONE (20:57)
[2024-02-19] MEDS: DEXTROSE (50%) 50ML SYRG IV ONE (21:13)
[2024-02-19] MEDS: InsuLIN REG 1unit/0.01ml Soln (100units/ml) IV ONE (21:23)
[2024-02-19] MEDS: CALCIUM GLUC 1,000mg/50ml-NS 50 ML IV ONE (21:27)
[2024-02-19] MEDS: BUMETANIDE INJECTION 25 MG in GIVE UN-DILUTED 0 ML IV SCH (22:22)
[2024-02-20] VITALS (7 sets, daily range): BP systolic 138–149; BP diastolic 71–77; PULSE 60–85; RESP 16–20; TEMP 97.5–98.7; O2SAT 98–100
[2024-02-20 06:02] LABS: Basophils # (auto) 0 10 ^3/uL (0-0.2); Basophils % (auto) 0.3 % (0.0-2.0); Eosinophils # (auto) 0 10 ^3/uL (0-0.8); Eosinophils % (auto) 0.2 % (0.0-7.0); Hematocrit 30.4 % (41.0-53.0); Hemoglobin 10.1 g/dL (13.5-17.5); Lymphocytes # (auto) 0.5 10 ^3/uL (0.4-5.4); Lymphocytes % (auto) 7.6 % (10.0-50.0); Mean Corpuscular Hemoglobin 30.2 pg (28.0-32.0); Mean Corpuscular Hgb Conc. 33.3 g/dL (32.0-36.0); Mean Corpuscular Volume 90.6 fL (80.0-100.0); Monocytes # (auto) 0.5 10 ^3/uL (0-1.3); Monocytes % (auto) 8.3 % (0.0-12.0); Neutrophils # (auto) 5.4 10 ^3/uL (1.6-8.6); Neutrophils % (auto) 83.6 % (37.0-80.0); Red Blood Cells 3.35 10^6/uL (4.5-5.90); Red Cell Distribution Width 17.1 % (11.8-14.3); White Blood Cell 6.5 10^3/uL (4.4-10.8)
[2024-02-20 06:17] LABS: Chloride 97 mmol/L (98-107); Potassium 5.3 mmol/L (3.5-5.1); Sodium 132 mmol/L (136-145)
[2024-02-20 06:18] LABS: Calcium 10.1 mg/dL (8.5-10.1)
[2024-02-20 06:19] LABS: Anion Gap 17 (5-15); Carbon Dioxide 18 mmol/L (20-30)
[2024-02-20 06:23] LABS: BUN/Creatinine Ratio 8.1 (10.0-20.0); Glucose 54 mg/dL (74-106)
[2024-02-20 06:27] LABS: Blood Urea Nitrogen 137 mg/dL (9-23)
[2024-02-20] MEDS ORDERED: SODIUM CHL 0.9% 1000 ML BAG XX ONE (07:00)
== END 2024-02-20 18:15 | disposition home or self-care (01) | DRG 252 ==
LOC: TELE-CENTR 23:33
PROVIDERS: ADMIT Nurse Practitioner Family; ATTEND Internal Medicine
PROC: 05CD3ZZ Extirpation of Matter from Right Cephalic Vein, Percutaneous Approach (ICD-10-PCS; principal; 2024-02-19)
PROC: 057D3ZZ Dilation of Right Cephalic Vein, Percutaneous Approach (ICD-10-PCS; 2024-02-19)
PROC: 3E03317 Introduction of Other Thrombolytic into Peripheral Vein, Percutaneous Approach (ICD-10-PCS; 2024-02-19)
PROC: B51N1ZZ Fluoroscopy of Left Upper Extremity Veins using Low Osmolar Contrast (ICD-10-PCS; 2024-02-19)
PROC: B51W1ZZ Fluoroscopy of Dialysis Shunt/Fistula using Low Osmolar Contrast (ICD-10-PCS; 2024-02-19)
PROC: 5A1D70Z Performance of Urinary Filtration, Intermittent, Less than 6 Hours Per Day (ICD-10-PCS; 2024-02-20)
DX: T82.868A Thrombosis due to vascular prosthetic devices, implants and grafts, initial encounter (principal); N18.6 End stage renal disease; I12.0 Hypertensive chronic kidney disease with stage 5 chronic kidney disease or end stage renal disease; E87.20 Acidosis, unspecified; D63.1 Anemia in chronic kidney disease; I95.9 Hypotension, unspecified; E87.5 Hyperkalemia; E11.22 Type 2 diabetes mellitus with diabetic chronic kidney disease; Z82.0 Family history of epilepsy and other diseases of the nervous system; Z83.3 Family history of diabetes mellitus; Z99.2 Dependence on renal dialysis; Z95.0 Presence of cardiac pacemaker; Y84.8 Other medical procedures as the cause of abnormal reaction of the patient, or of later complication, without mention of misadventure at the time of the procedure; Y92.89 Other specified places as the place of occurrence of the external cause
CPT/HCPCS: 36415; 76080; 76942; 80048; 82962; 85025; 85610; 85730; 86803; 87081; 87340; 90935; 97110; 97116; 97163; 99152; C1769; C1894; C2625; G0378; J1815; J2250; Q9967

== ENCOUNTER 2024-02-24 15:19 | Inpatient (IN) | payer OTHER ==
[~2024-02-24] VITALS: Ht 177.8 cm; Wt 79.0 kg
[2024-02-24 19:04] LABS: Basophils # (auto) 0 10 ^3/uL (0-0.2); Basophils % (auto) 0.3 % (0.0-2.0); Eosinophils # (auto) 0.1 10 ^3/uL (0-0.8); Eosinophils % (auto) 0.9 % (0.0-7.0); Hematocrit 30.7 % (41.0-53.0); Hemoglobin 10.1 g/dL (13.5-17.5); Lymphocytes # (auto) 1.2 10 ^3/uL (0.4-5.4); Lymphocytes % (auto) 13.4 % (10.0-50.0); Mean Corpuscular Hemoglobin 29.8 pg (28.0-32.0); Mean Corpuscular Hgb Conc. 32.9 g/dL (32.0-36.0); Mean Corpuscular Volume 90.6 fL (80.0-100.0); Monocytes # (auto) 0.9 10 ^3/uL (0-1.3); Monocytes % (auto) 9.6 % (0.0-12.0); Neutrophils # (auto) 6.9 10 ^3/uL (1.6-8.6); Neutrophils % (auto) 75.8 % (37.0-80.0); Nucleated Red Blood Cells % 0.1 %; Red Blood Cells 3.38 10^6/uL (4.5-5.90); Red Cell Distribution Width 16.1 % (11.8-14.3); White Blood Cell 9.1 10^3/uL (4.4-10.8)
[2024-02-24 19:14] LABS: Chloride 97 mmol/L (98-107); Sodium 133 mmol/L (136-145)
[2024-02-24 19:15] LABS: Anion Gap 14 (5-15); Calcium 10.7 mg/dL (8.7-10.4); Carbon Dioxide 22 mmol/L (20-30)
[2024-02-24 19:19] LABS: INR 1.07 (0.9-1.15); Prothrombin Time 11.3 sec (9.3-11.8)
[2024-02-24 19:20] LABS: BUN/Creatinine Ratio 6.7 (10.0-20.0); Glucose 105 mg/dL (74-106)
[2024-02-24 19:51] LABS: Blood Urea Nitrogen 90 mg/dL (9-23)
[2024-02-24] MEDS ORDERED: ONDANSETRON HCL 4 MG/2 ML VIAL IV PRN (20:15)
[2024-02-24] MEDS ORDERED: ACETAMINOPHEN 325 MG TAB PO PRN (20:15)
[2024-02-24] MEDS ORDERED: HYDROcodone-ACET 5/325MG TAB PO PRN (20:15)
[2024-02-24 20:23] VITALS: PULSE 80; RESP 16; O2SAT 96
[2024-02-24] MEDS: FAMOTIDINE 20 MG TAB PO SCH (22:00)
[2024-02-24 23:15] VITALS: RESP 19; O2SAT 96
[2024-02-24] MEDS: HEPARIN SODIUM (PORCINE) 5000 UNITS/ML 1ML VIAL SC SCH (23:15)
[2024-02-25] VITALS (9 sets, daily range): BP systolic 113–154; BP diastolic 65–79; PULSE 75–91; RESP 16–98; TEMP 97.4–98.8; O2SAT 94–98
[2024-02-25 09:58] LABS: Basophils # (auto) 0 10 ^3/uL (0-0.2); Basophils % (auto) 0.2 % (0.0-2.0); Eosinophils # (auto) 0.1 10 ^3/uL (0-0.8); Eosinophils % (auto) 0.8 % (0.0-7.0); Hematocrit 30.1 % (41.0-53.0); Hemoglobin 9.9 g/dL (13.5-17.5); Lymphocytes # (auto) 0.9 10 ^3/uL (0.4-5.4); Lymphocytes % (auto) 10.4 % (10.0-50.0); Mean Corpuscular Hemoglobin 29.6 pg (28.0-32.0); Mean Corpuscular Hgb Conc. 32.8 g/dL (32.0-36.0); Mean Corpuscular Volume 90.4 fL (80.0-100.0); Monocytes # (auto) 0.7 10 ^3/uL (0-1.3); Monocytes % (auto) 8.2 % (0.0-12.0); Neutrophils # (auto) 7.2 10 ^3/uL (1.6-8.6); Neutrophils % (auto) 80.4 % (37.0-80.0); Red Blood Cells 3.33 10^6/uL (4.5-5.90); Red Cell Distribution Width 16.1 % (11.8-14.3)
[2024-02-25 10:04] LABS: Chloride 95 mmol/L (98-107); Potassium 4.7 mmol/L (3.5-5.1); Sodium 130 mmol/L (136-145)
[2024-02-25 10:05] LABS: Anion Gap 12 (5-15); Carbon Dioxide 23 mmol/L (20-30)
[2024-02-25 10:06] LABS: Calcium 10.1 mg/dL (8.5-10.1)
[2024-02-25 10:10] LABS: Glucose 159 mg/dL (74-106)
[2024-02-25 10:18] LABS: Blood Urea Nitrogen 95 mg/dL (9-23)
[2024-02-25 13:06] LABS: Phosphorus 4.2 mg/dL (2.4-5.1)
[2024-02-25] MEDS ORDERED: FAMOTIDINE 20 MG TAB PO SCH (15:00)
[2024-02-26] VITALS (8 sets, daily range): BP systolic 136–159; BP diastolic 69–80; PULSE 76–84; RESP 16–23; TEMP 97.2–98.1; O2SAT 97–98
[2024-02-26] MEDS ORDERED: SODIUM CHL 0.9% 1000 ML BAG XX ONE (07:00)
[2024-02-26] MEDS: fentaNYL CITRATE 100 MCG/2 ML VL ONE ×2 (08:42→16:26)
[2024-02-26] MEDS: MIDAZOLAM HCL 2MG/2ML 2ml VIAL (1mg/ml) ONE ×2 (08:43→16:26)
[2024-02-26] MEDS: LIDOCAINE 2%HCL (LOCAL ANESTH.) INJ 20ML MDV ONE ×2 (08:43→16:26)
[2024-02-26] MEDS: CATHFLO ACTIVASE (ALTEPLASE) 2 MG VIAL ONE (09:25)
[2024-02-26] MEDS: IOHEXOL 350 MG/ML 100ML IJ ONE (09:26)
[2024-02-26] MEDS: HEPARIN SODIUM (PORCINE) 5000 UNITS/ML 1ML VIAL ONE ×2 (10:24→16:29)
[2024-02-26] MEDS: HEPARIN DRIP/D5W 100UNITS/ML 250 ML IV SCH (11:00)
[2024-02-26] MEDS: HEPARIN DRIP/D5W 100UNITS/ML 250 ML IV ONE (11:07)
[2024-02-26] MEDS ORDERED: APIX2.5T PO (15:10)
[2024-02-26] MEDS: ceFAZolin 1GM/50ML 50 ML IV ONE (17:18)
[2024-02-26 19:09] LABS: Basophils # (auto) 0 10 ^3/uL (0-0.2); Basophils % (auto) 0.5 % (0.0-2.0); Eosinophils # (auto) 0.1 10 ^3/uL (0-0.8); Eosinophils % (auto) 2.1 % (0.0-7.0); Hematocrit 28.5 % (41.0-53.0); Hemoglobin 9.5 g/dL (13.5-17.5); Lymphocytes # (auto) 0.9 10 ^3/uL (0.4-5.4); Lymphocytes % (auto) 15.4 % (10.0-50.0); Mean Corpuscular Hemoglobin 30.1 pg (28.0-32.0); Mean Corpuscular Hgb Conc. 33.3 g/dL (32.0-36.0); Mean Corpuscular Volume 90.4 fL (80.0-100.0); Monocytes # (auto) 0.6 10 ^3/uL (0-1.3); Monocytes % (auto) 9.8 % (0.0-12.0); Neutrophils # (auto) 4.1 10 ^3/uL (1.6-8.6); Neutrophils % (auto) 72.2 % (37.0-80.0); Red Blood Cells 3.16 10^6/uL (4.5-5.90); White Blood Cell 5.7 10^3/uL (4.4-10.8)
[2024-02-26 20:10] LABS: INR 1.07 (0.9-1.15); Partial Thromboplastin Time 27.8 SEC (24.5-34.5); Prothrombin Time 11.3 sec (9.3-11.8)
[2024-02-26 20:42] LABS: INR 1.06 (0.9-1.15); Partial Thromboplastin Time 27.9 SEC (24.5-34.5); Prothrombin Time 11.2 sec (9.3-11.8)
[2024-02-26] MEDS ORDERED: EPOETIN ALFA-EPBX 10,000 UNIT/1ML VIAL SC ONE (21:00)
[2024-02-27 01:00] VITALS: BP 131/81; PULSE 80; RESP 18; TEMP 97.7; O2SAT 97
[2024-02-27 05:00] VITALS: BP 143/74; PULSE 79; RESP 18; TEMP 98.3; O2SAT 100
[2024-02-27 08:00] VITALS: PULSE 84; PULSE 97; RESP 18; O2SAT 97
[2024-02-27 08:43] VITALS: BP 149/67; PULSE 79; RESP 18; TEMP 98; O2SAT 97
[2024-02-27] MEDS ORDERED: HEPARIN 1,000 UNITS/ml 1ML VIAL XX ONE (10:30)
[2024-02-27 10:52] VITALS: BP 149/67; PULSE 76; RESP 18; TEMP 98; O2SAT 97
[2024-02-27 12:00] VITALS: BP 112/67; PULSE 81; RESP 18; TEMP 97.8; O2SAT 99
[2024-02-27] MEDS: FAMOTIDINE 20 MG TAB PO ONE (12:33)
[2024-02-27] MEDS ORDERED: FAMOTIDINE 20 MG TAB PO SCH (22:00)
== END 2024-02-27 14:20 | disposition home or self-care (01) | DRG 252 ==
LOC: ER 15:19 → TELE 20:16 → TELE-EAST 23:43
PROVIDERS: ADMIT Nurse Practitioner Family; ATTEND Internal Medicine
PROC: 0JH63XZ Insertion of Tunneled Vascular Access Device into Chest Subcutaneous Tissue and Fascia, Percutaneous Approach (ICD-10-PCS; principal; 2024-02-26)
PROC: 02H633Z Insertion of Infusion Device into Right Atrium, Percutaneous Approach (ICD-10-PCS; 2024-02-26)
PROC: B518ZZA Fluoroscopy of Superior Vena Cava, Guidance (ICD-10-PCS; 2024-02-26)
PROC: B548ZZA Ultrasonography of Superior Vena Cava, Guidance (ICD-10-PCS; 2024-02-26)
PROC: 057Y3ZZ Dilation of Upper Vein, Percutaneous Approach (ICD-10-PCS; 2024-02-26)
PROC: 05CY3ZZ Extirpation of Matter from Upper Vein, Percutaneous Approach (ICD-10-PCS; 2024-02-26)
PROC: B31N1ZZ Fluoroscopy of Other Upper Arteries using Low Osmolar Contrast (ICD-10-PCS; 2024-02-26)
PROC: 3E03317 Introduction of Other Thrombolytic into Peripheral Vein, Percutaneous Approach (ICD-10-PCS; 2024-02-26)
DX: T82.868A Thrombosis due to vascular prosthetic devices, implants and grafts, initial encounter (principal); N18.6 End stage renal disease; I13.2 Hypertensive heart and chronic kidney disease with heart failure and with stage 5 chronic kidney disease, or end stage renal disease; G30.9 Alzheimer's disease, unspecified; Y83.8 Other surgical procedures as the cause of abnormal reaction of the patient, or of later complication, without mention of misadventure at the time of the procedure; I25.10 Atherosclerotic heart disease of native coronary artery without angina pectoris; F02.80 Dementia in other diseases classified elsewhere, unspecified severity, without behavioral disturbance, psychotic disturbance, mood disturbance, and anxiety; I50.9 Heart failure, unspecified; D63.1 Anemia in chronic kidney disease; E11.22 Type 2 diabetes mellitus with diabetic chronic kidney disease; Z99.2 Dependence on renal dialysis; Z79.899 Other long term (current) drug therapy; Z79.82 Long term (current) use of aspirin; Z95.1 Presence of aortocoronary bypass graft; Z87.891 Personal history of nicotine dependence; Y92.89 Other specified places as the place of occurrence of the external cause; Z82.0 Family history of epilepsy and other diseases of the nervous system; Z83.3 Family history of diabetes mellitus; Z95.0 Presence of cardiac pacemaker; Z79.84 Long term (current) use of oral hypoglycemic drugs
CPT/HCPCS: 36415; 36558; 37246; 71045; 75710; 76080; 77001; 80048; 82306; 83735; 84100; 85025; 85610; 85730; 87340; 90935; 99152; C1894; G0378; J2250

== ENCOUNTER → 2024-06-07 | Outpatient (CLI) | payer OTHER ==
[~2024-06-07] MED LIST changes: +APIX2.5T PO; -TAMS0.4C36 PO; +TAMS0.4C39 PO
[2024-06-07 08:17] LABS: Basophils # (auto) 0 10 ^3/uL (0-0.2); Basophils % (auto) 0.4 % (0.0-2.0); Eosinophils # (auto) 0.1 10 ^3/uL (0-0.8); Eosinophils % (auto) 0.9 % (0.0-7.0); Hematocrit 32.9 % (41.0-53.0); Hemoglobin 10.9 g/dL (13.5-17.5); Lymphocytes # (auto) 1.2 10 ^3/uL (0.4-5.4); Lymphocytes % (auto) 18.9 % (10.0-50.0); Mean Corpuscular Hemoglobin 30.5 pg (28.0-32.0); Mean Corpuscular Hgb Conc. 33.3 g/dL (32.0-36.0); Mean Corpuscular Volume 91.8 fL (80.0-100.0); Monocytes # (auto) 0.6 10 ^3/uL (0-1.3); Monocytes % (auto) 9.6 % (0.0-12.0); Neutrophils # (auto) 4.6 10 ^3/uL (1.6-8.6); Neutrophils % (auto) 70.2 % (37.0-80.0); Platelet Count (auto) 211 10^3/uL (140-450); Red Blood Cells 3.58 10^6/uL (4.5-5.90); Red Cell Distribution Width 17.7 % (11.8-14.3); White Blood Cell 6.6 10^3/uL (4.4-10.8)
[2024-06-07 08:47] LABS: Alkaline Phosphatase 137 U/L (46-116); Anion Gap 10 (5-15); Aspartate Aminotransferase < 8 U/L (13-40); Blood Urea Nitrogen 38 mg/dL (9-23); Calcium 9.6 mg/dL (8.7-10.4); Carbon Dioxide 31 mmol/L (20-31); Chloride 100 mmol/L (98-107); Glucose 87 mg/dL (74-106); LDL Cholesterol 31 mg/dL (< 100); Potassium 4.7 mmol/L (3.5-5.1); Sodium 141 mmol/L (136-145); Triglycerides 51 mg/dL (< 150)
[2024-06-07 08:48] LABS: Alanine Aminotransferase < 9 U/L (7-40); Albumin 4.8 g/dL (3.2-4.8); Bilirubin, Total 0.4 mg/dL (0.2-1.0); Cholesterol 73 mg/dL (< 200); HDL Cholesterol 35 mg/dL (40-59); Total Protein 7.5 g/dL (5.7-8.2)
== END | disposition home or self-care (01) ==
LOC: LAB 07:58
PROVIDERS: ATTEND Family Medicine
DX: E11.22 Type 2 diabetes mellitus with diabetic chronic kidney disease (principal); N18.5 Chronic kidney disease, stage 5; I82.621 Acute embolism and thrombosis of deep veins of right upper extremity
CPT/HCPCS: 36415; 80053; 80061; 83036; 85025

== ENCOUNTER 2025-02-17 09:45 | Emergency (ER) | payer OTHER ==
[~2025-02-17] VITALS: Ht 180.3 cm; Wt 86.3 kg
--- NOTE | 2025-02-17 09:54 | ED.PDOC ---
History of Present Illness HPI Comments 79-year-old male with PMHx ESRD brought in by EMS presents with a chief complaint of inability to void and generalized weakness. Per EMS, patient was found on the floor after 2 hours by his cna caregiver. Patient states that he had a mechanical fall and was too weak to get himself up. Patient denies hitting his head or losing consciousness. Patient is supposed to be dialyzed today and gets dialysis every Mon/Wed/Fri. Time Seen by MD: 09:46 Primary Care Provider: Wallace Reviewed Notes: Medications, Allergies Allergies: Coded Allergies: No Known Drug Allergy (Verified Allergy, Unknown, 07/23/20) Home Meds Active Scripts Apixaban Base (ELIQUIS) 2.5 Mg Tab, 2.5 MG PO BID, #60 TAB Prov:CORY PRICE MD 02/26/24 Reported Medications Ascorbic Acid (VITAMIN C TABLET) Unknown Strength Tb, PO DAILY, TAB 07/31/23 Cyanocobalamin (B12) Unknown Strength Cap, PO DAILY, CAP 07/31/23 Multiple Vitamins W/ Minerals (One A Day Mens Vitacraves) 1 Chw Chw, 1 CHW PO DAILY, TAB.CHEW 07/31/23 Calcium (Calcium) 500 Mg Tab, 500 MG PO DAILY, TAB 07/31/23 Cholecalciferol (D3) 25 Mcg Chw, 2 CHW PO DAILY, TAB.CHEW 07/31/23 Ferrous Sulfate Dried (Iron High Potency) 65 Mg Tab, 65 MG PO DAILY, TAB 07/31/23 Sacubitril-Valsartan (Entresto 24-26 mg) 1 Tab Tab, 1 TAB PO BID, TAB 07/31/23 Sevelamer Carbonate (Renvela) 800 Mg Tab, 7 TAB PO DAILY, #540 TAB 3 Refills 01/27/23 Gabapentin (Gabapentin) 300 Mg Cap, 300 MG PO HS for 30 Days, MG 01/27/23 Aspirin (Aspir-Low) 81 Mg Tab, 1 TAB PO QAM for PREVENT HEART ATTACKS 08/29/20 Atorvastatin Calcium (ATORVASTATIN CALCIUM) 10 Mg Tab, 1 TAB PO DAILY for HIGH CHOLESTEROL 07/23/20 Glipizide (Glipizide) 10 Mg Tab, 1 TAB PO BID for DIABETES 07/23/20 Finasteride (Finasteride) 5 Mg Tab, 1 TAB PO QAM for BPH 07/23/20 Amlodipine Besylate (Amlodipine Besylate) 10 Mg Tab, 1 TAB PO QAM PRN for S BP>150 07/23/20 Tamsulosin Hcl (Tamsulosin Hcl) 0.4 Mg Cap, 1 CAP PO QAM for BPH 07/23/20 Information Source: Patient Mode of Arrival: Ambulatory Severity: Moderate Past Medical History PAST MEDICAL HISTORY: DM, ESRD, HTN Surgical History: CABG, Pacemaker Family History Family History: Reviewed,noncontributory to illness Social History Smoker: Non-Smoker Alcohol: Denies ETOH Use Drugs: Denies Drug Use Lives In: Home, Assisted Care Constitutional: reports: weakness; denies: chills, diaphoresis, fatigue, fever, malaise, sweats, others EENTM: denies: blurred vision, double vision, ear bleeding, ear discharge, ear drainage, ear pain, ear ringing, eye pain, eye redness, hearing loss, mouth pain, mouth swelling, nasal discharge, nose bleeding, nose congestion, nose pain, photophobia, tearing, throat pain, throat swelling, voice changes, others Respiratory: denies: cough, hemoptysis, orthopnea, SOB at rest, shortness of breath, SOB with excertion, stridor, wheezing, others Cardiovascular: denies: chest pain, dizzy spells, diaphoresis, Dyspnea on exertion, edema, irregular heart beat, left arm pain, lightheadedness, palpitations, PND, syncope, others Gastrointestinal: denies: abdomen distended, abdominal pain, blood streaked bowels, constipated, diarrhea, dysphagia, difficulty swallowing, hematemesis, melena, nausea, poor appetite, poor fluid intake, rectal bleeding, rectal pain, vomiting, others Genitourinary: reports: others (INABILITY TO VOID); denies: burning, dysuria, flank pain, frequency, hematuria, incontinence, penile discharge, penile sore, pain, testicle pain, testicle swelling, urgency Neurological: denies: dizziness, fainting, headache, left sided numbness, left sided weakness, numbness, paresthesia, pre-existing deficit, right sided numbness, right sided weakness, seizure, speech problems, tingling, tremors, weakness, others Musculoskeletal: denies: back pain, gout, joint pain, joint swelling, muscle pain, muscle stiffness, neck pain, others Integumetry: denies: bruises, change in color, change in hair/nails, dryness, laceration, lesions, lumps, rash, wounds, others Allergic/Immunocompromised: denies: Difficulty Healing, Frequent Infections, Hives, Itching, others Hematologic/Lymphatic: denies: anemia, blood clots, easy bleeding, easy bruising, swollen glands, others Endocrine: denies: excessive hunger, excessive sweating, excessive thirst, excessive urination, flushing, intolerance to cold, intolerance to heat, unexplained weight gain, unexplained weight loss, others Psychiatric: denies: anxiety, bipolar disorder, depression, hopeless, panic disorder, schizophrenia, sleepless, suicidal, others All Other Systems: Reviewed and Negative Physical Exam General Appearance: Moderate Distress, Normal HEENT: Normal ENT Inspection, Pharynx Normal, TMs Normal Neck: Full Range of Motion, Non-Tender, Normal, Normal Inspection Respiratory: Chest Non-Tender, Lungs Clear, No Accessory Muscle Use, No Respiratory Distress, Normal Breath Sounds Cardiovascular: No Edema, No JVD, No Murmur, No Gallop, Normal Peripheral Pulses, Regular Rate/Rhythm Breast Exam: Deferred Gastrointestinal: No Organomegaly, Non Tender, No Pulsatile Mass, Normal Bowel Sounds, Soft Genitalia: Deferred Pelvic: Deferred Rectal: Deferred Extremities: No calf tenderness, Normal capillary refill, Normal inspection, Normal range of motion, Non-tender, No pedal edema Musculoskeletal : Apperance: Normal Neurologic: account manager trainee II-XII nml as Tested, Disoriented, No Motor Deficits, Normal Affect, Normal Mood, No Sensory Deficits Cerebellar Function: NOT DONE Reflexes: NOT DONE Skin: Dry, Normal Color, Warm Peripheral Pulses: 3+ Radial (R), 3+ Radial (L) Lymphatic: No Adenopathy Was a procedure done? Was a procedure done?: No EKG EKG : Pulse Rate (adult): 80 [place]: Normal Cardiac Rhythm: Paced Block: None Hypertrophy: None ST: Normal Differential Dx Considerations may include: Anemia Electrolyte imbalance X-Ray, Labs, Meds, VS Vital Signs Date Time Temp Pulse Resp B/P (MAP) Pulse Ox O2 Delivery O2 Flow Rate FiO2 02/17/25 10:08 98.6 76 18 121/60 (80) 95 98.6 Lab Test 02/17/25 10:11 Range/Units White Blood Count 12.5 H 4.4-10.8 10^3/uL Red Blood Count 3.57 L 4.5-5.90 10^6/uL Hemoglobin 11.1 L 13.5-17.5 g/dL Hematocrit 32.9 L 41.0-53.0 % Mean Corpuscular Volume 92.1 80.0-100.0 fL Mean Corpuscular Hemoglobin 30.9 28.0-32.0 pg Mean Corpuscular Hemoglobin Concent 33.6 32.0-36.0 g/dL Red Cell Distribution Width 16.6 H 11.8-14.3 % Platelet Count 164 140-450 10^3/uL Mean Platelet Volume 8.6 6.9-10.8 fL Neutrophils (%) (Auto) 84.7 H 37.0-80.0 % Lymphocytes (%) (Auto) 5.2 L 10.0-50.0 % Monocytes (%) (Auto) 9.8 0.0-12.0 % Eosinophils (%) (Auto) 0.1 0.0-7.0 % Basophils (%) (Auto) 0.2 0.0-2.0 % Neutrophils # (Auto) 10.6 H 1.6-8.6 10 ^3/uL Lymphocytes # (Auto) 0.6 0.4-5.4 10 ^3/uL Monocytes # (Auto) 1.2 0-1.3 10 ^3/uL Eosinophils # (Auto) 0 0-0.8 10 ^3/uL Basophils # (Auto) 0 0-0.2 10 ^3/uL Nucleated Red Blood Cells 0.0 % Sodium Level 137 136-145 mmol/L Potassium Level 4.9 3.5-5.1 mmol/L Chloride Level 98 98-107 mmol/L Carbon Dioxide Level 26 20-31 mmol/L Anion Gap 13 5-15 Blood Urea Nitrogen 49 H 9-23 mg/dL Creatinine 8.53 H 0.700-1.30 mg/dL Glomerular Filtration Rate Calc 6 >90 mL/min BUN/Creatinine Ratio 5.7 L 10.0-20.0 Serum Glucose 178 H 74-106 mg/dL Calcium Level 10.2 8.7-10.4 mg/dL Patient slightly disoriented. Chronic kidney function. WBC slightly elevated. Blood sugar elevated. He is supposed to have his dialysis today. Feeling weak. Has a hard time remembering events. Nephrology consultation. Continue to monitor. Time of 1ST Reevaluation: 10:16 Reevaluation 1ST: Improved Patient Education/Counseling: Diagnosis, Treatment, Need For Follow Up Family Education/Counseling: No Family Present SEPSIS Sepsis Screen Physician Orders Chest Portable (02/17/25 10:41) Levofloxacin 500mg (Levaquin 500mg/ 100m (02/17/25 10:45) *Dr. [facility] (02/17/25 10:41) Vital Signs Date Time Temp Pulse Resp B/P (MAP) Pulse Ox O2 Delivery O2 Flow Rate FiO2 02/17/25 10:08 98.6 76 18 121/60 (80) 95 98.6 Laboratory Tests Test 02/17/25 10:11 White Blood Count 12.5 10^3/uL (4.4-10.8) H Departure 1 Departure Time of Disposition: 10:40 Impression: Primary Impression: Metabolic encephalopathy Additional Impressions: ESRD needing dialysis Uncontrolled diabetes mellitus Qualified Codes: E13.65 - Other specified diabetes mellitus with hyperglycemia Disposition: ADMITTED INPATIENT Admit to: Med Surg Condition: Guarded Critical Care Note Critical Care Time?: No Stability Stability form required: No Heart Score Heart Score: Heart Score Response (Comments) Value History N/A 0 EKG N/A 0 Age N/A 0 Risk Factors N/A 0 Troponin N/A 0 Total 0 I personally scribed for DARCY CAMACHO MD ([email or web address]) on 02/17/25 at 09:54. Electronically submitted by Dick Ramirez ([email or web address]). I personally scribed for DARCY CAMACHO MD ([email or web address]) on 02/17/25 at 11:09. Electronically submitted by Dick Ramirez ([email or web address]). DARCY CAMACHO MD Feb 17, 2025 09:54
[2025-02-17 10:27] LABS: Basophils # (auto) 0 10 ^3/uL (0-0.2); Basophils % (auto) 0.2 % (0.0-2.0); Eosinophils # (auto) 0 10 ^3/uL (0-0.8); Eosinophils % (auto) 0.1 % (0.0-7.0); Hematocrit 32.9 % (41.0-53.0); Hemoglobin 11.1 g/dL (13.5-17.5); Lymphocytes # (auto) 0.6 10 ^3/uL (0.4-5.4); Lymphocytes % (auto) 5.2 % (10.0-50.0); Mean Corpuscular Hemoglobin 30.9 pg (28.0-32.0); Mean Corpuscular Hgb Conc. 33.6 g/dL (32.0-36.0); Mean Corpuscular Volume 92.1 fL (80.0-100.0); Monocytes # (auto) 1.2 10 ^3/uL (0-1.3); Monocytes % (auto) 9.8 % (0.0-12.0); Neutrophils # (auto) 10.6 10 ^3/uL (1.6-8.6); Neutrophils % (auto) 84.7 % (37.0-80.0); Platelet Count (auto) 164 10^3/uL (140-450); Red Blood Cells 3.57 10^6/uL (4.5-5.90); Red Cell Distribution Width 16.6 % (11.8-14.3); White Blood Cell 12.5 10^3/uL (4.4-10.8)
[2025-02-17 10:31] LABS: Potassium 4.9 mmol/L (3.5-5.1); Sodium 137 mmol/L (136-145)
[2025-02-17 10:32] LABS: Anion Gap 13 (5-15); Calcium 10.2 mg/dL (8.7-10.4); Carbon Dioxide 26 mmol/L (20-31)
[2025-02-17 10:35] LABS: Chloride 98 mmol/L (98-107)
[2025-02-17 10:37] LABS: BUN/Creatinine Ratio 5.7 (10.0-20.0); Blood Urea Nitrogen 49 mg/dL (9-23); Glucose 178 mg/dL (74-106)
[2025-02-17] MEDS: levoFLOXacin 500MG 100 ML IV ONE (11:30)
--- NOTE | 2025-02-17 11:53 | DVHINCON2 ---
Date of service: Feb 17, 2025 Referring Physician anshul Reason for Consultation ESRD History of Present Illness 79 years old male with past medical history of ESRD on dialysis Thursday, diabetes, hypertension, congestive heart failure, noncompliance with dialysis as outpatient, presented with chief complaints of generalized weakness and unable to void, fall Past Medical History As per HPI Allergies: Coded Allergies: No Known Drug Allergy (Verified Allergy, Unknown, 07/23/20) Home Meds Active Scripts Apixaban Base (ELIQUIS) 2.5 Mg Tab, 2.5 MG PO BID, #60 TAB Prov:CORY PRICE MD 02/26/24 Reported Medications Ascorbic Acid (VITAMIN C TABLET) Unknown Strength Tb, PO DAILY, TAB 07/31/23 Cyanocobalamin (B12) Unknown Strength Cap, PO DAILY, CAP 07/31/23 Multiple Vitamins W/ Minerals (One A Day Mens Vitacraves) 1 Chw Chw, 1 CHW PO DAILY, TAB.CHEW 07/31/23 Calcium (Calcium) 500 Mg Tab, 500 MG PO DAILY, TAB 07/31/23 Cholecalciferol (D3) 25 Mcg Chw, 2 CHW PO DAILY, TAB.CHEW 07/31/23 Ferrous Sulfate Dried (Iron High Potency) 65 Mg Tab, 65 MG PO DAILY, TAB 07/31/23 Sacubitril-Valsartan (Entresto 24-26 mg) 1 Tab Tab, 1 TAB PO BID, TAB 07/31/23 Sevelamer Carbonate (Renvela) 800 Mg Tab, 7 TAB PO DAILY, #540 TAB 3 Refills 01/27/23 Gabapentin (Gabapentin) 300 Mg Cap, 300 MG PO HS for 30 Days, MG 01/27/23 Aspirin (Aspir-Low) 81 Mg Tab, 1 TAB PO QAM for PREVENT HEART ATTACKS 08/29/20 Atorvastatin Calcium (ATORVASTATIN CALCIUM) 10 Mg Tab, 1 TAB PO DAILY for HIGH CHOLESTEROL 07/23/20 Glipizide (Glipizide) 10 Mg Tab, 1 TAB PO BID for DIABETES 07/23/20 Finasteride (Finasteride) 5 Mg Tab, 1 TAB PO QAM for BPH 07/23/20 Amlodipine Besylate (Amlodipine Besylate) 10 Mg Tab, 1 TAB PO QAM PRN for SBP >150 07/23/20 Tamsulosin Hcl (Tamsulosin Hcl) 0.4 Mg Cap, 1 CAP PO QAM for BPH 07/23/20 Current Medications Current Medications Medications (Trade) Dose Ordered Sig/Khang Route PRN Reason Start Time Stop Time Status Last Admin Vancomycin HCl 0 ml @ 0 mls/hr UD IV 02/17/25 12:00 02/17/25 16:49 DC Vancomycin HCl 0 ml @ 0 mls/hr UD IV 02/17/25 16:30 Apixaban (Eliquis) 2.5 mg BID PO 02/17/25 22:00 Finasteride (Proscar Tablet) 5 mg QAM PO 02/18/25 07:00 Gabapentin (Neurontin Capsule) 300 mg HS PO 02/17/25 22:00 Sacubitril/ Valsartan (Entresto 24-26 Mg tab) 1 tab BID PO 02/17/25 22:00 Tamsulosin HCl (Flomax) 0.4 mg QPM PO 02/17/25 18:00 Patient Own Medication 1 tab QAM PRN PO SBP>150 02/17/25 16:45 Multivitamins/ Minerals (Mvi W/ Minerals Tablet) 1 tab DAILY PO 02/18/25 10:00 Patient Own Medication 7 tab DAILY PO 02/18/25 10:00 UNV Family History: Alzheimer's disease G8 MOTHER Diabetes mellitus G8 BROTHER Review of Systems As documented in HPI H&P Exam Vital Signs/I&O Vital Sign Date Time Temp Pulse Resp B/P (MAP) Pulse Ox O2 Delivery O2 Flow Rate FiO2 02/17/25 16:00 81 122/62 (82) 96 02/17/25 15:53 26 Room Air* 0 21 02/17/25 12:42 100.3 100.3 Physical Exam General-not in any distress HEENT-normocephalic, no icterus, no pallor, neck supple Respiratory-fair air entry bilateral, no rhonchi, no wheeze [id number] heard, no murmurs appreciated Abdominal-soft, nontender, nondistended Musculoskeletal-no pedal edema, no calf tenderness Genitourinary-deferred Neuro-awake alert oriented x2 Psychiatric-not agitated, cooperative, Labs/Diagnostic Data Labs/Diagnostic Data Laboratory Tests Test 02/17/25 12:25 02/17/25 10:11 Range/Units Lactic Acid Level 0.9 0.4-2.0 mmol/L White Blood Count 12.5 H 4.4-10.8 10^3/uL Red Blood Count 3.57 L 4.5-5.90 10^6/uL Hemoglobin 11.1 L 13.5-17.5 g/dL Hematocrit 32.9 L 41.0-53.0 % Mean Corpuscular Volume 92.1 80.0-100.0 fL Mean Corpuscular Hemoglobin 30.9 28.0-32.0 pg Mean Corpuscular Hemoglobin Concent 33.6 32.0-36.0 g/dL Red Cell Distribution Width 16.6 H 11.8-14.3 % Platelet Count 164 140-450 10^3/uL Mean Platelet Volume 8.6 6.9-10.8 fL Neutrophils (%) (Auto) 84.7 H 37.0-80.0 % Lymphocytes (%) (Auto) 5.2 L 10.0-50.0 % Monocytes (%) (Auto) 9.8 0.0-12.0 % Eosinophils (%) (Auto) 0.1 0.0-7.0 % Basophils (%) (Auto) 0.2 0.0-2.0 % Neutrophils # (Auto) 10.6 H 1.6-8.6 10 ^3/uL Lymphocytes # (Auto) 0.6 0.4-5.4 10 ^3/uL Monocytes # (Auto) 1.2 0-1.3 10 ^3/uL Eosinophils # (Auto) 0 0-0.8 10 ^3/uL Basophils # (Auto) 0 0-0.2 10 ^3/uL Nucleated Red Blood Cells 0.0 % Sodium Level 137 136-145 mmol/L Potassium Level 4.9 3.5-5.1 mmol/L Chloride Level 98 98-107 mmol/L Carbon Dioxide Level 26 20-31 mmol/L Anion Gap 13 5-15 Blood Urea Nitrogen 49 H 9-23 mg/dL Creatinine 8.53 H 0.700-1.30 mg/dL Glomerular Filtration Rate Calc 6 >90 mL/min BUN/Creatinine Ratio 5.7 L 10.0-20.0 Serum Glucose 178 H 74-106 mg/dL Calcium Level 10.2 8.7-10.4 mg/dL Assessment ESRD on dialysis [facility] Thursday Generalized weakness, fall Elevated white count rule out sepsis Diabetes Congestive heart failure Hypertension Noncompliance Recommendations Dialysis will be arranged today Check blood cultures Add vancomycin We will follow closely Rule out sepsis Recommend complete septic workup Plan discussed with: Patient ALYCIA ESPINAL MD Feb 17, 2025 11:53
[2025-02-17] MEDS ORDERED: VANCOMYCIN PER PHARMACY 0 MG IV SCH ×2 (12:00→16:30)
--- NOTE | 2025-02-17 12:14 | DVH ---
EXAM: XY CHEST PORTABLE Indication: sob Technique: Single frontal view of the chest was obtained Comparison: XY CHEST PORTABLE on DOS: 02/24/24, XY CHEST XRAY 1 VIEW on DOS: 12/18/23, XY CHEST XRAY 1 V IEW on DOS: 12/14/23, XY CHEST XRAY 1 VIEW on DOS: 12/03/23, CHEST PORTABLE on DOS: 09/18/22 FINDINGS: Lines and Tubes: Cardiac pacemaker projects over left chest wall. Lungs: Mild pulmonary vascular congestion. Pleura: No effusion. No pneumothorax. Cardiomediastinal contours: Cardiomegaly. Atherosclerotic vascular calcifications of the thoracic ao rta are noted. Bones: No acute osseous abnormality. IMPRESSION: Mild pulmonary vascular congestion. Cardiomegaly
[2025-02-17] MEDS: VANCOMYCIN 1.5GM/300ML 300 ML IV ONE (15:25)
[2025-02-17 15:53] VITALS: PULSE 82; RESP 26; O2SAT 95
[2025-02-17] MEDS ORDERED: PATIENTS OWN MEDICATION (Amlodipine Besylate 1 TAB) PO PRN (16:45)
[2025-02-17 17:45] VITALS: PULSE 79; RESP 18; O2SAT 95
[2025-02-17] MEDS: TAMSULOSIN HYDROCHLORIDE 0.4 MG CAP PO SCH (18:00)
[2025-02-17 19:12] VITALS: PULSE 85; RESP 18; O2SAT 97
[2025-02-17] MEDS: SODIUM CHL 0.9% 1000 ML BAG XX ONE (20:10)
[2025-02-17] MEDS ORDERED: amLODIPine BESYLATE 5 MG TAB PO PRN (20:30)
[2025-02-17] MEDS: GABAPENTIN 300 MG CAP PO SCH (21:47)
[2025-02-17] MEDS: APIXABAN 2.5 MG TAB PO SCH (21:47)
[2025-02-17] MEDS: SACUBITRIL-VALSARTAN 24mg/26mg TAB PO SCH (21:47)
[2025-02-17 22:00] VITALS: TEMP 98.6
--- NOTE | 2025-02-18 00:03 | DVHHP2 ---
Admitting Diagnosis: Generalized weakness, ESRD on HD History of Present Illness History Source: Patient Exam Limitations: No limitations HPI Mr. Franco Saravia is a 79-year-old male with a past medical history of ESRD who presents with a chief complaint of inability to void and generalized weakness. Per EMS, patient was found on the floor after 2 hours by his vehicle care specialist. Patient states that he had a mechanical fall and was too weak to get himself up. Patient denies hitting his head or losing consciousness. Patient kept in ED observation for hemodialysis which he had today. Patient reports he feels better. Home Meds Active Scripts Apixaban Base (ELIQUIS) 2.5 Mg Tab, 2.5 MG PO BID, #60 TAB Prov:CORY PRICE MD 02/26/24 Reported Medications Ascorbic Acid (VITAMIN C TABLET) Unknown Strength Tb, PO DAILY, TAB 07/31/23 Cyanocobalamin (B12) Unknown Strength Cap, PO DAILY, CAP 07/31/23 Multiple Vitamins W/ Minerals (One A Day Mens Vitacraves) 1 Chw Chw, 1 CHW PO DAILY, TAB.CHEW 07/31/23 Calcium (Calcium) 500 Mg Tab, 500 MG PO DAILY, TAB 07/31/23 Cholecalciferol (D3) 25 Mcg Chw, 2 CHW PO DAILY, TAB.CHEW 07/31/23 Ferrous Sulfate Dried (Iron High Potency) 65 Mg Tab, 65 MG PO DAILY, TAB 07/31/23 Sacubitril-Valsartan (Entresto 24-26 mg) 1 Tab Tab, 1 TAB PO BID, TAB 07/31/23 Sevelamer Carbonate (Renvela) 800 Mg Tab, 7 TAB PO DAILY, #540 TAB 3 Refills 01/27/23 Gabapentin (Gabapentin) 300 Mg Cap, 300 MG PO HS for 30 Days, MG 01/27/23 Aspirin (Aspir-Low) 81 Mg Tab, 1 TAB PO QAM for PREVENT HEART ATTACKS 08/29/20 Atorvastatin Calcium (ATORVASTATIN CALCIUM) 10 Mg Tab, 1 TAB PO DAILY for HIGH CHOLESTEROL 07/23/20 Glipizide (Glipizide) 10 Mg Tab, 1 TAB PO BID for DIABETES 07/23/20 Finasteride (Finasteride) 5 Mg Tab, 1 TAB PO QAM for BPH 07/23/20 Amlodipine Besylate (Amlodipine Besylate) 10 Mg Tab, 1 TAB PO QAM PRN for SBP>150 07/23/20 Tamsulosin Hcl (Tamsulosin Hcl) 0.4 Mg Cap, 1 CAP PO QAM for BPH 07/23/20 Past Medical History Cardiac: CHF, HTN Pulmonary: No pertinent Hx Central Nervous System: No pertinent Hx GI: No pertinent Hx Hemotology/Oncology: No pertinent Hx Hepatobiliary: No pertinent Hx Psychiatric: No pertinent Hx Musculoskeletal: No pertinent Hx Rheumotologic: No pertinent Hx Infectious Disease: No peritnent Hx ENT: No pertinent Hx Renal/: ESRD HD/PD Endocrine: No pertinent Hx Dermatology: No pertinent Hx Patient Family History: Alzheimer's disease G8 MOTHER Diabetes mellitus G8 BROTHER Alocohol: None Lives with: With family Domestic Violence: Neg Review of Systems Constitutional: Weakness (generalized) Ears, Nose, & Throat: No symptom reported Eyes: No symptom reported Pulmonary/Respiratory: No symptom reported Cardiovascular: No symptom reported Gastrointestinal: No symptom reported Genitourinary: No symptom reported Musculoskeletal: No symptom reported Skin: No symptom reported Psychiatric: No symptom reported Endocrine: No symptom reported Hemotologic/Lymphatic: No symptom reported H&P Exam Vital Signs Vital Signs Date Time Temp Pulse Resp B/P (MAP) Pulse Ox O2 Delivery O2 Flow Rate FiO2 02/17/25 22:00 98.6 88 12 140/62 (88) 97 98.6 02/17/25 22:00 Room Air* 0 21 General Appeara: Well developed, Well nourished, Normal Appearance Head Exam: Normal inspection Neck Exam: Normal inspection, Non-tender, Normal alignment Eye Exam: bilateral eye Normal inspection, bilateral eye PERRL, bilateral eye EOMI Ear Exam: bilateral ear Auricle normal Nasal Exam: Normal inspection Mouth: Normal Inspection Pulmonary/Respiratory: Normal inspection, Normal breath sounds, Chest non- tender, Lungs clear Cardiovascular/Chest: Normal inspection, Regular rate, Normal Rhythm Peripheral Pulses: 2+ dorsalis pedis (R), 2+ dorsalis pedis (L), 2+ Radial (R), 2+ Radial (L) Abdominal Exam: Normal bowel sounds, Soft, No tenderness Rectal Exam: Deferred PROJECT MANAGER Exam: Normal hearing, Normal speech, PERRL Neuro/Mental St: Alert, Oriented Appearance: Appropriate appearance, Appropriate insight Eye contact/ Speech: Cooperative, Good eye contact, Normal speech Thoughts/Psych: Normal thought pattern Coordination/Gait: Normal finger->nose Skin Exam: Normal inspection, Normal color, Warm/dry Labs/Xrays Labs Test 02/17/25 12:25 02/17/25 10:11 Range/Units Lactic Acid Level 0.9 0.4-2.0 mmol/L White Blood Count 12.5 H 4.4-10.8 10^3/uL Red Blood Count 3.57 L 4.5-5.90 10^6/uL Hemoglobin 11.1 L 13.5-17.5 g/dL Hematocrit 32.9 L 41.0-53.0 % Mean Corpuscular Volume 92.1 80.0-100.0 fL Mean Corpuscular Hemoglobin 30.9 28.0-32.0 pg Mean Corpuscular Hemoglobin Concent 33.6 32.0-36.0 g/dL Red Cell Distribution Width 16.6 H 11.8-14.3 % Platelet Count 164 140-450 10^3/uL Mean Platelet Volume 8.6 6.9-10.8 fL Neutrophils (%) (Auto) 84.7 H 37.0-80.0 % Lymphocytes (%) (Auto) 5.2 L 10.0-50.0 % Monocytes (%) (Auto) 9.8 0.0-12.0 % Eosinophils (%) (Auto) 0.1 0.0-7.0 % Basophils (%) (Auto) 0.2 0.0-2.0 % Neutrophils # (Auto) 10.6 H 1.6-8.6 10 ^3/uL Lymphocytes # (Auto) 0.6 0.4-5.4 10 ^3/uL Monocytes # (Auto) 1.2 0-1.3 10 ^3/uL Eosinophils # (Auto) 0 0-0.8 10 ^3/uL Basophils # (Auto) 0 0-0.2 10 ^3/uL Nucleated Red Blood Cells 0.0 % Sodium Level 137 136-145 mmol/L Potassium Level 4.9 3.5-5.1 mmol/L Chloride Level 98 98-107 mmol/L Carbon Dioxide Level 26 20-31 mmol/L Anion Gap 13 5-15 Blood Urea Nitrogen 49 H 9-23 mg/dL Creatinine 8.53 H 0.700-1.30 mg/dL Glomerular Filtration Rate Calc 6 >90 mL/min BUN/Creatinine Ratio 5.7 L 10.0-20.0 Serum Glucose 178 H 74-106 mg/dL Calcium Level 10.2 8.7-10.4 mg/dL Assessment/Plan Problem List: (1) ESRD needing dialysis Plan This is a 79 yo male with known history of ESRD on HD , DM, HTN, CHF who presents to the hospital with generalized weakness. 1. Generalized weakness 2. ESRD on HD 3. Chronic hypertension 4. DM 5. CHF Plan Patient in ED for observation was awaiting Hemodialysis which he had Social Service consultation for discharge planning Physical Therapy evaluation IV antibiotic Blood cultures x2 Discussed all above with patient who verbalizes agreement and understanding of care plan. All questions were answered. Discussed with supervising MD. Plan discussed with: Patient, Other Code Visit Code Visit Total Time (mins): 45 Additional Comments Additional Comments Additional Comments Patient's chart is reviewed and discussed with the nurse practitioner. Patient is seen and evaluated by nurse practitioner. I agree with her evaluation, documentation, assessment and care plan as outlined. TALA HAMLIN Feb 18, 2025 00:03 EMIL HATHAWAY MD Feb 23, 2025 15:17
[2025-02-18] MEDS: FINASTERIDE 5 MG TAB PO SCH (07:00)
[2025-02-18 08:00] VITALS: BP 14/59; PULSE 85; RESP 25; O2SAT 93
[2025-02-18] MEDS: SEVELAMER 800 MG TAB PO SCH (08:15)
[2025-02-18] MEDS: VANCOMYCIN 500mg/100mL 100 ML IV ONE (10:17)
[2025-02-18] MEDS: MULTIPLE VITAMINS W/ MINERALS TAB PO SCH (10:20)
[2025-02-20 10:10] LABS: Hepatitis B Surface Antigen Negative (Negative)
[2025-02-20 10:32] LABS: Hepatitis A Ab IgM Negative; Hepatitis B Core IgM Negative (Negative); Hepatitis C Antibody Negative (Negative)
--- NOTE | 2025-02-23 14:48 | ECG ---
[facility] Test Date: 2025-02-18 Test Time: 05:58:00 Pat Name: AILYN BOWLING Department: ED Room: Gender: M Public Information Coordinator: : 1945 Requested By: DARCY CAMACHO Order Number: [id number] Reading MD: Red Watson Measurements Intervals [place] Rate: 87 P: 0 MT: 179 QRS: -79 QRSD: 152 T: 71 QT: 458 QTc: 551 Interpretive Statements V-paced rhythm with some inhibition No further analysis attempted due to paced rhythm Electronically Signed On 02-24-2025 9:35:23 PDT by Red Watson Please click the below link to view image of tracing.
--- NOTE | 2025-02-23 14:48 | ECG ---
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
== END 2025-02-18 13:02 | disposition home or self-care (01) ==
LOC: ER 09:45 → EDBD 09:45 → ER 02-18 13:02
DX: G93.41 Metabolic encephalopathy (principal); E11.65 Type 2 diabetes mellitus with hyperglycemia; E11.22 Type 2 diabetes mellitus with diabetic chronic kidney disease; N18.6 End stage renal disease; I13.2 Hypertensive heart and chronic kidney disease with heart failure and with stage 5 chronic kidney disease, or end stage renal disease; I50.9 Heart failure, unspecified; Z95.1 Presence of aortocoronary bypass graft; Z91.158 Patient's noncompliance with renal dialysis for other reason; Z99.2 Dependence on renal dialysis; Z95.0 Presence of cardiac pacemaker; Z79.899 Other long term (current) drug therapy; Z79.84 Long term (current) use of oral hypoglycemic drugs; Z79.82 Long term (current) use of aspirin; Z79.01 Long term (current) use of anticoagulants
CPT/HCPCS: 36415; 71045; 80048; 80074; 80202; 82565; 83605; 85025; 87040; 93005; 96365; 96366; 96367; 99285; J1642; J1956; J3372; 90935